=== PATIENT | female | born 1970 | race Caucasian/White ===

== ENCOUNTER → 2018-11-13 | Day surgery (SDC) | payer OTHER ==
[~2018-11-13] MED LIST: ABILIFY PO; ABILIFY5 MG PO; ACETAMINOPHEN 1000 MG/100 ML 100 ML IV ONE; AMBIEN5 MG PO; BUPRENORPHINE; CARAFATE1 G1 PO; CRUTCH1 EACH; DEXAMETHASONE SOD PHOS INJ 4 MG/ML VIAL ONE; DOXEPIN HCL25 MG PO; EPINEPHRINE HCL 1:1000 1ML 1 MG/ML AMP ONE; EXCEDRIN EXTRA1 EAC1 PO; FAMOTIDINE 20 MG/2 ML VIAL IV ONE; FENTANYL CITRATE/PF 100MCG/2 ML INJ ONE; GABAPENTIN300 MG PO; HYDROCODONE-AP1 EAC1 PO; HYDROMORPHONE 2MG/ML 2 MG/ML ML ONE; IMITREX100 MG PO; KLONOPIN0.5 MG PO; LIDOCAINE 1% W/EPINEPHRINE 20 ML VIAL ONE; LIDOCAINE HCL (LTA) 4 ML SOLN ONE; LIDOCAINE HCL 2% LOCAL INJ 5 ML SDV VIAL INJ ONE; METOCLOPRAMIDE HCL 10 MG/2ML VIAL ONE; MIDAZOLAM HCL 2 MG/2 ML VIAL ONE; MORPHINE SULFAT60 M1; MORPHINE SULFATE INJ 4 MG/ML INJ 1ML ONE; PREVACID30 MG PO; PRISTIQ ER50 MG PO; PROMETHAZINE HCL (IM) 25 MG/ML VIAL ONE; PROPOFOL IV EMULSION 10 MG/ML 20 ML VIAL ONE; PROPRANOLOL HCL40 MG PO; PROTONIX20 MG PO; REGLAN10 MG PO; ROCURONIUM BROMIDE 10 MG/ML 5ML VIAL ONE; SCOPOLAMINE 1.5 MG PATCH ONE; SEVOFLURANE INHAL SOLN 250 ML PEN BTL ONE; SUGAMMADEX SODIUM 200 MG/2 ML VIAL IV ONE; TOPAMAX25 MG PO; ULTRAM50 MG PO; VENOFER100 MG/5 M IV; Z.0.AMBIEN10 MG PO; Z.0.CELEXA20 MG PO; Z.0.CLONAZEPAM1 MG PO; Z.0.LAMICTAL200 MG PO; Z.0.PROTONIX40 MG PO; Z.0.ULTRAM50 MG PO; ZOFRAN ODT4 MG; walker
--- NOTE | 2018-11-13 05:10 | Pre Op History & Physical ---
DATE OF SURGERY: November 13, 2018. CHIEF COMPLAINT: Chronic sinusitis, nasal obstruction. HISTORY OF PRESENT ILLNESS: This 48-year-old female has history of migraine. She has been followed by Dr. Wright and also her neurologist, Dr. Loyd, with breakthrough of the headaches, and the patient required going to the ER about 2-3 times a week. The patient has postnasal drip. No epistaxis. She has decreased sense of smell. She complains of frontal and maxillary pain. She does have decreased airway on both sides recently. The patient had endoscopic sinus surgery about 16 years ago. According the patient, improved her headaches after the sinus procedure. Her recent condition has been treated with more than 8 weeks of antibiotics, topical nasal steroids, decongestant including Bactrim by myself with no improvement of the condition. A repeat CT scan of paranasal sinuses done, showed that the patient has chronic sinusitis, especially maxillary sinus involvement, and deviated nasal septum to the left side. REVIEW OF SYSTEMS: System review showed no recent cardiovascular, respiratory, or GI problem. PAST MEDICAL HISTORY: The patient has a history of hypertension, on medication. She had previous history of CVA. The patient has history of fracture of foot, on pain management. ALLERGIES: SHE IS ALLERGIC TO AUGMENTIN, ADVAIR, ZOFRAN, AND TAPE. MEDICATIONS: She is on Pristiq, Lamictal, Klonopin, doxepin, Abilify, hydrocodone, and propranolol. SOCIAL HISTORY: She is a nonsmoker, nondrinker. FAMILY HISTORY: Noncontributory. PAST SURGICAL HISTORY: The patient has previous cholecystectomy, parathyroidectomy, appendectomy, , and stomach sleeve and also endoscopic sinus surgery. PHYSICAL EXAMINATION: VITAL SIGNS: Within normal limits. HEENT: Ear exam showed normal tympanic membranes bilaterally. Nasal exam showed hypertrophy of the inferior turbinates. Oropharynx and oral cavity show 1+ tonsils bilaterally with no exudate or debris. NECK: Showed no lymph node or thyroid palpable. CHEST: Showed good air entry bilaterally. CARDIOVASCULAR: Showed S1 and S2. No murmur noted. DAY CARE ATTENDANT: Showed cranial nerves II through XII were within normal limits. ASSESSMENT AND PLAN: Mrs. Wasserman has chronic sinusitis and nasal obstruction, which has been resistant to conservative therapy. The suggested treatment is endoscopic sinus surgery, septoplasty, resection of inferior turbinate, and other necessary procedure. The complication of procedure includes, but not limited to bleeding, infection, CSF leak, blindness, double vision, meningitis, septal perforation, septal hematoma, persistent nasal obstruction, persistent nasal crusting, nasal deformity, recurrence of the sinus problem, and persistent recurrence of the headaches. I have expressed to the patient that sinus problems do cause headaches and not all headaches are sinus related. Having the sinus procedure, it is not a guarantee that she will have no more headaches. The patient understood the limitation and has elected to undergo the surgical procedure. MD JEANNIE Farnsworth/MONALISA /[id number]
--- OUTSIDE RECORDS SUMMARY | 2018-11-13 05:38 | XMS REPORT | Clinical Summary ---
Author [facility] Address Unknown Phone Unavailable Care Team Providers Care Logistics Project Manager Name Role Phone Andrea Wright MD PCP Allergies Comments Active Allergy Reactions Severity Noted Date Problems with bandaids,steri-strips,tape Adhesive Rash High 01/15/2010 And all tapes: RASH Adhesive Tape-Silicones Other (See Low 11/05/2014 Comments) Other reaction(s): Muscle Aches/Weakness spasms Augmentin: Other reaction(s): Respiratory distress Approx 1984 Amoxicillin-Pot Other (See Medium 08/27/2013 Clavulanate Comments) Other reaction(s): Respiratory distress ADVAIR DISKUS. :Approx 2006 Fluticasone Shortness Of High 08/19/2013 Propion-Salmeterol Breath Hives and Vomiting Ondansetron Hcl Hives Low 07/28/2015 Ondansetron Hcl (Pf) Nausea And High 08/19/2013 Vomiting Medications End Date Status Medication Sig Dispensed Refills Start Date Active lamoTRIgine (LaMICtal) Take 200 mg 0 100 MG tablet by mouth nightly. Active desvenlafaxine (PRISTIQ) Take 200 mg 0 100 MG 24 hr tablet by mouth nightly. Active HYDROcodone-acetaminophen Take 1 tablet 0 (NORCO) 10-325 mg per by mouth tablet every 6 (six) hours as needed for moderate pain. Active clonAZEPAM (KlonoPIN) 1 Take 1 mg by 0 MG tablet mouth 2 (two) times a day. Active omeprazole (PriLOSEC) 20 Take 20 mg by 0 MG capsule mouth 2 (two) times a day. Active doxepin (SINEquan) 10 MG Take 20 mg by 0 capsule mouth nightly. Active ARIPiprazole (ABILIFY) 10 Take 10 mg by 0 MG tablet mouth nightly. Active atorvastatin (LIPITOR) 40 Take 40 mg by 0 MG tablet mouth nightly. Active aspirin (ECOTRIN) 81 MG Take 81 mg by 0 enteric coated tablet mouth daily. Active morPHINE (MS CONTIN) 60 Take 60 mg by 0 MG 12 hr tablet mouth every 8 (eight) hours. Active gabapentin (NEURONTIN) Take 300 mg 0 300 mg capsule by mouth 3 (three) times a day. Active propranolol (INDERAL) 10 Take 10 mg by 0 MG tablet mouth 2 (two) times a day. Active erenumab-aooe (AIMOVIG Inject 70 mg 0 AUTOINJECTOR) 70 mg/mL under the auto-injector skin every 28 days. Took on 08/26/18 11/24/2018 Active butalbital-acetaminophen- Take 1 tablet 30 tablet 0 caff (ESGIC) 50-325-40 mg by mouth 9 per tablet every 6 (six) hours as needed for headaches for up to 30 days. 08/27/2018 Discontinued pantoprazole (PROTONIX) Take 40 mg by 0 40 MG EC tablet mouth 2 (two) times a day before meals. 08/27/2018 Discontinued clonAZEPAM (KlonoPIN) 0.5 Take 1 mg by 0 MG tablet mouth 7 nightly. 04/27/2018 Discontinued ARIPiprazole (ABILIFY) 5 Take 10 mg by 0 MG tablet mouth daily. 04/25/2018 Discontinued butorphanol (STADOL) 10 1 spray into 0 mg/mL nasal spray each nostril every 4 (four) hours as needed for moderate pain. 08/27/2018 Discontinued traZODone (DESYREL) 100 Take 200 mg 0 MG tablet by mouth nightly. 04/25/2018 Discontinued calcium carbonate (TUMS) Chew 2 0 200 mg calcium (500 mg) tablets 3 chewable tablet (three) times a day. 11/16/2017 atorvastatin (LIPITOR) 80 Take 1 tablet 30 tablet 0 MG tablet (80 mg total) 8 by mouth nightly for 30 days. 11/29/2017 promethazine (PHENERGAN) Take 1 tablet 30 tablet 0 12.5 MG tablet (12.5 mg 8 total) by mouth every 6 (six) hours as needed for nausea or vomiting for up to 30 days. 11/29/2017 metoprolol tartrate Take 0.5 30 tablet 0 (LOPRESSOR) 25 mg tablet tablets (12.5 8 mg total) by mouth 2 (two) times a day for 30 days. 11/30/2017 aspirin (ECOTRIN) 81 MG Take 1 tablet 30 tablet 0 enteric coated tablet (81 mg total) 8 by mouth daily for 30 days. 11/29/2017 nitroglycerin (NITROSTAT) Place 1 30 tablet 0 0.4 MG SL tablet tablet (0.4 8 mg total) under the tongue every 5 (five) minutes as needed for chest pain for up to 30 days. 04/25/2018 Discontinued cholecalciferol, vitamin TAKE 1 TABLET 3 D3, (VITAMIN D3) 2,000 (2,000 UNITS 8 unit tablet TOTAL) BY MOUTH DAILY. 04/29/2018 Discontinued morPHINE (MS CONTIN) 60 TAKE 1 TABLET 0 MG 12 hr tablet BY MOUTH 8 EVERY 8 HOURS DIRECTED 04/25/2018 Discontinued propranolol (INDERAL) 40 Take 40 mg by 0 MG tablet mouth 3 8 (three) times a day. 01/18/2018 Discontinued sucralfate (CARAFATE) 1 TAKE 1 TABLET 2 gram tablet BY MOUTH 4 8 TIMES A DAY BEFORE MEALS AND NIGHTLY 11/13/2017 Discontinued simvastatin (ZOCOR) 20 MG 0 tablet 8 11/18/2017 acetaminophen-codeine Take 1-2 20 tablet 0 (TYLENOL WITH CODEINE #3) tablets by 8 300-30 mg per tablet mouth every 4 (four) hours as needed for moderate pain for up to 5 days. 04/25/2018 Discontinued aspirin (ECOTRIN) 81 MG TAKE ONE (1) 2 enteric coated tablet TABLET(S) BY 8 MOUTH ONCE A DAY. 04/25/2018 Discontinued atorvastatin (LIPITOR) 80 TAKE ONE (1) 2 MG tablet TABLET(S) BY 8 MOUTH AT BEDTIME. 04/25/2018 Discontinued metoclopramide (REGLAN) TAKE ONE (1) 0 10 MG tablet TABLET(S) BY 8 MOUTH TWICE A DAY. 01/19/2018 Discontinued metoprolol tartrate TAKE ONE-HALF 2 (LOPRESSOR) 25 mg tablet (1/2) 8 TABLET(S) BY MOUTH TWICE A DAY HOLD IF BLOOD PRESSURE IS LESS THAN 110 OR HEART RATE IS LESS THAN 60. 04/25/2018 Discontinued promethazine (PHENERGAN) TAKE 1 TABLET 0 25 MG tablet BY MOUTH 8 EVERY 4 TO 6 HOURS NEEDED 04/25/2018 Discontinued meloxicam (MOBIC) 7.5 mg 0 tablet 8 08/27/2018 Discontinued erenumab-aooe (AIMOVIG Inject 70 mg 2 mL 12 AUTOINJECTOR) 70 mg/mL under the 8 auto-injector skin every 28 days. 04/25/2018 Discontinued SUMAtriptan-naproxen 1 po at onset 10 tablet 2 (TREXIMET) 85-500 mg per of headache. 8 tablet May repeat in 2 hours. Max 2/24 hours. 04/25/2018 Discontinued butorphanol (STADOL) 10 1 spray into 2.5 mL 2 mg/mL nasal spray each nostril 8 every 4 (four) hours as needed for moderate pain for up to 30 days. 04/27/2018 Discontinued promethazine (PHENERGAN) Take 1 tablet 10 tablet 2 12.5 MG tablet (12.5 mg 8 total) by mouth every 8 (eight) hours as needed for nausea or vomiting for up to 30 days. 04/29/2018 Discontinued butorphanol (STADOL) 10 1 spray in 1 0.8 mL 0 mg/mL nasal spray nostril 1-2 8 times/week 04/29/2018 Discontinued ARIPiprazole (ABILIFY) 10 Take 10 mg by 0 MG tablet mouth nightly. 08/27/2018 Discontinued meloxicam (MOBIC) 7.5 mg Take 7.5 mg 0 tablet by mouth nightly. 05/14/2018 Discontinued propranolol (INDERAL) 40 Take 40 mg by 0 MG tablet mouth as needed. 06/13/2018 propranolol (INDERAL) 10 Take 1 tablet 60 tablet 0 MG tablet (10 mg total) 8 by mouth 2 (two) times a day for 30 days. 06/13/2018 aspirin (ECOTRIN) 81 MG Take 1 tablet 30 tablet 0 enteric coated tablet (81 mg total) 8 by mouth daily for 30 days. 08/15/2018 sucralfate (CARAFATE) 1 Take 1 tablet 120 tablet 0 gram tablet (1 g total) 9 by mouth 4 (four) times a day for 30 days. 07/18/2018 metoclopramide (REGLAN) Take 1 tablet 8 tablet 0 10 MG tablet (10 mg total) 9 by mouth every 6 (six) hours for 2 days. 08/29/2018 Discontinued clindamycin (CLEOCIN) 300 Take 300 mg 0 MG capsule by mouth 4 (four) times a day. Start taking Monday08/24/18 10/09/2018 Discontinued promethazine (PHENERGAN) Take 12.5 mg 0 12.5 MG tablet by mouth as needed for nausea or vomiting. 11/08/2018 promethazine (PHENERGAN) Take 1 tablet 30 tablet 0 12.5 MG tablet (12.5 mg 9 total) by mouth as needed for nausea or vomiting for up to 30 days. 10/17/2018 Discontinued furosemide (LASIX) 40 mg Take 1 tablet 30 tablet 0 tablet (40 mg total) 9 by mouth daily for 30 days. 10/17/2018 Discontinued potassium chloride Take 2 60 tablet 0 (KLOR-CON) 10 MEQ CR tablets (20 9 tablet mEq total) by mouth daily for 30 days. 11/09/2018 prochlorperazine Take 1 tablet 10 tablet 0 (COMPAZINE) 10 MG tablet (10 mg total) 9 by mouth 2 (two) times a day as needed for nausea or vomiting (headache) for up to 5 days. Status Hospital, Clinic, or Ordered Dose Route Frequency Start End Date Other Facility Date Administered Medication Active erenumab-aooe (AIMOVIG) 140 mg subQ once 11/25/19 140 mg/mL syringe 140 19 mgIndications: Migraine without aura and without status migrainosus, not intractable Active Problems Problem Noted Date Dizziness 10/02/2018 TIA (transient ischemic attack) 05/13/2018 Intractable hemiplegic migraine with status migrainosus 04/27/2018 Drug abuse 01/23/2018 Somatic complaints, multiple 01/19/2018 Intractable headache 01/18/2018 Atypical chest pain 11/09/2017 Absolute anemia 11/02/2017 Overview: Added automatically from request for surgery [id number] Intractable persistent migraine aura without cerebral infarction and 12/05/2016 without status migrainosus Weakness 02/15/2016 Left-sided weakness 01/31/2016 Aphasia 01/31/2016 Chest pain 01/31/2016 Hyperlipidemia 01/31/2016 Morbid obesity with BMI of 45.0-49.9, adult 01/31/2016 Iron deficiency 01/12/2016 Overview: Required iron infusion periodically Abdominal pain, epigastric 10/19/2015 Allergic rhinitis 07/28/2015 Anemia 07/28/2015 Anxiety state 07/28/2015 BMI 45.0-49.9, adult 07/28/2015 Cervical syndrome 07/28/2015 Chest pain 07/28/2015 Depression 07/28/2015 Fever 07/28/2015 Brain disorder 07/28/2015 Gastroesophageal reflux disease 07/28/2015 Foot pain, bilateral 07/28/2015 Overview: Chronic foot pain, mostly on the lateral foot; taking morphine ER 60 mg one po daily. Fire burning discomfort Headache 07/28/2015 Iron deficiency anemia 07/28/2015 Complicated migraine 07/28/2015 Overview: Taking Zomig first for migraine headache, and followed by Stadol nasal spray if needed for migraine headache. Muscle weakness 07/28/2015 Nausea 07/28/2015 Rapid palpitations 07/28/2015 Skin sensation disturbance 07/28/2015 Snoring 07/28/2015 Tachycardia 07/28/2015 Chronic pain 07/28/2015 High cholesterol Encounters Care Team Description Date Type Specialty 11/04/2018 Travel Arsen Crocker MD Nonintractable headache, unspecified chronicity pattern, unspecified headache type (Primary Dx); Malingering 11/03/2018 Emergency Emergency Medicine - 11/04/2018 Michael Bhandari NP-C 10/31/2018 Telephone Neurology Paddy Martin MD Migraine without aura and without status migrainosus, not intractable (Primary Dx) 10/30/2018 Emergency Emergency Medicine - 10/31/2018 10/30/2018 Travel Renee Milian MD Migraine without aura and without status migrainosus, not intractable (Primary Dx) 10/25/2018 Office Visit Neurology Paddy Martin MD Migraine without aura and without status migrainosus, not intractable (Primary Dx) 10/23/2018 Emergency Emergency Medicine Renee Milian MD 10/23/2018 Telephone Neurology Brice Orosco MD Al-Lahiq, Maha, MD Intractable hemiplegic migraine with status migrainosus (Primary Dx) 10/17/2018 Emergency General Internal Medicine - 10/18/2018 10/17/2018 Travel N/A 10/04/2018 Intake Access Andrea Wright MD Obudulu, Rosemary Ogonnaya, MD Bui, Quynh-Uyen Thi, MD Dizziness (Primary Dx) 10/02/2018 [facility] Internal Medicine - Encounter 10/09/2018 Andrea Wright MD 10/02/2018 Orders Only General Internal Medicine Anish Zepeda MD Acute chest pain (Primary Dx); Acute nonintractable headache, unspecified headache type 09/17/2018 Emergency Emergency Medicine Le Caldera MD Tang, Hsiao Chiang, MD Bui, Quynh-Uyen Thi, MD Left-sided weakness (Primary Dx) 08/27/2018 Emergency General Internal Medicine - 08/29/2018 08/27/2018 Travel Paddy Martin MD Acute gastritis without hemorrhage, unspecified gastritis type (Primary Dx) 07/16/2018 Emergency Emergency Medicine Anish Zepeda MD Migraine without status migrainosus, not intractable, unspecified migraine type (Primary Dx) 06/18/2018 Emergency Emergency Medicine 06/18/2018 Travel Brittanie Pate MA 06/08/2018 Telephone Neurology Renee Milian MD 06/04/2018 Telephone Neurology Renee Milian MD 05/24/2018 Refill Neurology Nga Kyle MD Left-sided weakness (Primary Dx) 05/12/2018 [facility] General Internal Medicine - Encounter 05/14/2018 Renee Milian MD 05/08/2018 Telephone Neurology Reji Wick MD Hemiplegic migraine without status migrainosus, not intractable (Primary Dx) 05/07/2018 Emergency Emergency Medicine - 05/08/2018 Luis Felipe Astorga MD Bavare, Arusha Amod, MD Li, Xiao Hong, MD Intractable hemiplegic migraine with status migrainosus (Primary Dx) 04/27/2018 Emergency General Internal Medicine - 04/29/2018 Renee Milian MD Obesity, Class III, BMI 40-49.9 (morbid obesity) (HCC) (Primary Dx); AALIYAH (obstructive sleep apnea); Bruxism; Intractable chronic migraine without aura and without status migrainosus 04/25/2018 Office Visit Neurology Garcia Caro MD Hemiplegic migraine without status migrainosus, not intractable (Primary Dx) 04/10/2018 Emergency Emergency Medicine Garcia Caro MD Hemiplegic migraine without status migrainosus, not intractable (Primary Dx) 03/15/2018 Emergency Emergency Medicine Kevin Dave MD Nonintractable headache, unspecified chronicity pattern, unspecified headache type (Primary Dx); Paresthesia 03/12/2018 Emergency Emergency Medicine Elmer Hudson MD 01/24/2018 Telephone Cardiovascular Abbey Casey MD Infection due to port-a-cath, initial encounter (Primary Dx) 01/23/2018 Hospital General Internal Medicine - Encounter 01/25/2018 Teri Escobar MA 01/23/2018 Telephone Cardiovascular Teri Escobar MA 01/23/2018 Telephone Cardiovascular Mason Ochoa MD Allergic rhinitis, unspecified chronicity, unspecified seasonality, unspecified trigger (Primary Dx); Somatic complaints, multiple; Intractable headache, unspecified chronicity pattern, unspecified headache type; Anxiety state; BMI 45.0-49.9, adult; Cervical syndrome; Brain disorder; Gastroesophageal reflux disease without esophagitis; Foot pain, bilateral; Intractable chronic cluster headache; Iron deficiency anemia due to chronic blood loss; Complicated migraine; Muscle weakness; Nausea; Rapid palpitations; Skin sensation disturbance; Snoring; Tachycardia; Chronic pain syndrome; Abdominal pain, epigastric; Iron deficiency; Left-sided weakness; Aphasia; Hyperlipidemia, unspecified hyperlipidemia type; Morbid obesity with BMI of 45.0-49.9, adult; Weakness; Intractable persistent migraine aura without cerebral infarction and without status migrainosus; Atypical chest pain; Chest pain, unspecified type; Depression, unspecified depression type; Fever, unspecified fever cause 01/18/2018 Hospital General Internal Medicine - Encounter 01/19/2018 Reij Wick MD Chest pain, unspecified type (Primary Dx) 01/09/2018 Emergency Emergency Medicine - 01/10/2018 Agueda Vieira DO Chest pain, unspecified type (Primary Dx); Intractable chronic migraine without aura and with status migrainosus 01/03/2018 Emergency Emergency Medicine Garcia Caro MD Chest pain, unspecified type (Primary Dx); Acute nonintractable headache, unspecified headache type 12/11/2017 Emergency Emergency Medicine Elmer Hudson MD INSERTION, CATHETER, PORT-A-CATH LEFT CHEST 11/13/2017 Surgery General Surgery Nicolas Hamm MD 11/13/2017 Anesthesia General Surgery Event Elmer Hudson MD Other iron deficiency anemia 11/13/2017 Hospital General Surgery Encounter after 11/12/2017 Immunizations Name Dates Previously Given Next Due FLUCELVAX QUAD PF (0.5mL 01/24/2018 syringe) Influenza (IM) 01/12/2016 Preservative Free Influenza Trivalent 02/03/2015, 03/05/2014 Family History Medical History Relation Name Comments Hypertension Father Stroke Father Hyperlipidemia Mother Relation Name Status Comments Father Alive Mother Alive Social History Date Tobacco Use Types Packs/Day Years Used Never Smoker Smokeless Tobacco: Never Used Alcohol Use Drinks/Week oz/Week Comments No Sex Assigned at Date Recorded Not on file Industry Job Start Date Occupation Not on file Not on file Not on file Travel End Travel History Travel Start No recent travel history available. Last Filed Vital Signs Time Taken Vital Sign Reading 11/04/2018 3:40 AM CDT Blood Pressure 142/75 11/04/2018 3:40 AM CDT Pulse 98 11/03/2018 11:07 PM CDT Temperature 36.4 C (97.5 F) 11/04/2018 3:40 AM CDT Respiratory Rate 16 11/04/2018 3:40 AM CDT Oxygen Saturation 100% - Inhaled Oxygen - Concentration 11/03/2018 11:06 PM CDT Weight 129 kg (284 lb) 11/03/2018 11:06 PM CDT Height 170.2 cm (5' 7") 11/03/2018 11:06 PM CDT Body Mass Index 44.48 Plan of Treatment Care Team Description Date Type Specialty Renee Milian MD [facility] [address] [address] [phone] 04/24/2019 Office Visit Neurology Health Maintenance Due Date Last Done Comments INFLUENZA VACCINE 12/20/2018 01/24/2018, 01/12/2016, 02/03/2015, Additional history exists Implants Device Identifier Shelf Expiration Date Model / Serial / Lot Implanted Type Area Manufactur er 09/19/2019 [id number] / / [id number] Device Vasclr Clsr Baln Cath 10ml Cardiovasc N/A: N/A CARDINAL Lkng Syr 6fr 7fr [facility]ynxgrip - [facility] HistoryFile [id number] Implants Implanted: 10/17/2017 (Quantity not on file) 03/21/2020 [id number] / / [id number] Port Injctbl Smart Port Ct W/ Dtchd Implantabl Left: N/A ANGIODYNAM Plyurthn Cath 8fr - [id number] e [employer] Implanted: Qty: 1 on 11/13/2017 by Ports or Elmer Hudson MD Accessorie s Procedures Comments Procedure Name Priority Date/Time Associated Diagnosis MRI BRAIN WO CONTRAST STAT 11/04/2018 1:10 AM CDT SMEAR REVIEW STAT 11/04/2018 12:53 AM CDT ESTIMATED GFR STAT 11/04/2018 12:53 AM CDT HCG QUALITATIVE, SERUM STAT 11/04/2018 SCREEN 12:53 AM CDT PARTIAL THROMBOPLASTIN STAT 11/04/2018 TIME (PTT) 12:53 AM CDT PROTHROMBIN TIME WITH INR STAT 11/04/2018 12:53 AM CDT TROPONIN STAT 11/04/2018 12:53 AM CDT COMPREHENSIVE METABOLIC STAT 11/04/2018 PANEL 12:53 AM CDT HC COMPLETE BLD COUNT STAT 11/04/2018 W/AUTO DIFF 12:[address] HEAD WO CONTRAST STAT 11/03/2018 11:29 PM CDT TROPONIN Timed 10/30/2018 10:36 PM CDT XR CHEST 2 VW STAT 10/30/2018 9:04 PM CDT ECG ED PRELIMINARY Routine 10/30/2018 INTERPRETATION 8:04 PM CDT ECG 12-LEAD STAT 10/30/2018 7:42 PM CDT ESTIMATED GFR STAT 10/30/2018 7:42 PM CDT B NATRIURETIC PEPTIDE STAT 10/30/2018 7:42 PM CDT TROPONIN STAT 10/30/2018 7:42 PM CDT COMPREHENSIVE METABOLIC STAT 10/30/2018 PANEL 7:42 PM CDT HC COMPLETE BLD COUNT STAT 10/30/2018 W/AUTO DIFF 7:42 PM CDT SMEAR REVIEW Routine 10/18/2018 7:10 AM CDT ESTIMATED GFR Routine 10/18/2018 7:10 AM CDT COMPREHENSIVE METABOLIC Routine 10/18/2018 PANEL 7:10 AM CDT HC COMPLETE BLD COUNT Routine 10/18/2018 W/AUTO DIFF 7:10 AM CDT LIPID PANEL Routine 10/18/2018 7:10 AM CDT GRAM STAIN STAT 10/17/2018 3:45 PM CDT URINE CULTURE STAT 10/17/2018 3:45 PM CDT URINALYSIS SCREEN AND STAT 10/17/2018 MICROSCOPY, WITH REFLEX 3:[address] CULTURE [address] HEAD WO CONTRAST STAT 10/17/2018 10:28 AM CDT ESTIMATED GFR STAT 10/17/2018 10:21 AM CDT PHOSPHORUS LEVEL STAT 10/17/2018 10:21 AM CDT MAGNESIUM LEVEL STAT 10/17/2018 10:21 AM CDT ALCOHOL LEVEL, BLOOD STAT 10/17/2018 10:21 AM CDT COMPREHENSIVE METABOLIC STAT 10/17/2018 PANEL 10:21 AM CDT HC COMPLETE BLD COUNT STAT 10/17/2018 W/AUTO DIFF 10:21 AM CDT ECG 12-LEAD Routine 10/17/2018 9:56 AM CDT ECG ED PRELIMINARY Routine 10/17/2018 INTERPRETATION 9:49 AM CDT ESTIMATED GFR Routine 10/09/2018 5:50 AM CDT HEPATIC FUNCTION PANEL Routine 10/09/2018 5:50 AM CDT HC COMPLETE BLD COUNT Routine 10/09/2018 W/AUTO DIFF 5:50 AM CDT BASIC METABOLIC PANEL Routine 10/09/2018 5:50 AM CDT ESTIMATED GFR Routine 10/08/2018 5:54 AM CDT PHOSPHORUS LEVEL Routine 10/08/2018 5:54 AM CDT MAGNESIUM LEVEL Routine 10/08/2018 5:54 AM CDT BASIC METABOLIC PANEL Routine 10/08/2018 5:54 AM CDT ESTIMATED GFR Routine 10/07/2018 6:48 AM CDT MAGNESIUM LEVEL Routine 10/07/2018 6:48 AM CDT B NATRIURETIC PEPTIDE Routine 10/07/2018 6:48 AM CDT BASIC METABOLIC PANEL Routine 10/07/2018 6:48 AM CDT ESTIMATED GFR Routine 10/06/2018 6:34 AM CDT MAGNESIUM LEVEL Routine 10/06/2018 6:34 AM CDT BASIC METABOLIC PANEL Routine 10/06/2018 6:34 AM CDT ESTIMATED GFR STAT 10/05/2018 9:21 PM CDT PHOSPHORUS LEVEL STAT 10/05/2018 9:21 PM CDT MAGNESIUM LEVEL STAT 10/05/2018 9:21 PM CDT HC COMPLETE BLD COUNT STAT 10/05/2018 W/AUTO DIFF 9:21 PM CDT BASIC METABOLIC PANEL STAT 10/05/2018 9:21 PM CDT MRI BRAIN WO CONTRAST STAT 10/05/2018 11:12 AM CDT TROPONIN Timed 10/04/2018 3:10 PM CDT ECHOCARDIOGRAM 2D Routine 10/04/2018 COMPLETE W MMODE SPECTRAL 12:21 PM CDT COLOR DOPPLER (77399) TROPONIN STAT 10/04/2018 9:10 AM CDT B NATRIURETIC PEPTIDE STAT 10/04/2018 9:10 AM CDT D-DIMER STAT 10/04/2018 9:10 AM CDT MRI BRAIN WO CONTRAST STAT 10/03/2018 4:40 AM CDT BLOOD CULTURE, AEROBIC & Routine 10/02/2018 ANAEROBIC 10:29 PM CDT ESTIMATED GFR Routine 10/02/2018 10:25 PM CDT TROPONIN Routine 10/02/2018 10:25 PM CDT CREATINE KINASE, TOTAL Routine 10/02/2018 (CPK) 10:25 PM CDT THYROID STIMULATING Routine 10/02/2018 HORMONE 10:25 PM CDT LACTIC ACID LEVEL Routine 10/02/2018 10:25 PM CDT COMPREHENSIVE METABOLIC Routine 10/02/2018 PANEL 10:25 PM CDT HC COMPLETE BLD COUNT Routine 10/02/2018 W/AUTO DIFF 10:25 PM CDT BLOOD CULTURE, AEROBIC & Routine 10/02/2018 ANAEROBIC 10:25 PM CDT ECG 12-LEAD Routine 10/02/2018 9:[address] HEAD WO CONTRAST Routine 10/02/2018 9:34 PM CDT ESTIMATED GFR Routine 09/17/2018 1:11 AM CDT B NATRIURETIC PEPTIDE Routine 09/17/2018 1:11 AM CDT LIPASE LEVEL Routine 09/17/2018 1:11 AM CDT TROPONIN Routine 09/17/2018 1:11 AM CDT COMPREHENSIVE METABOLIC Routine 09/17/2018 PANEL 1:11 AM CDT PROTHROMBIN TIME WITH INR Routine 09/17/2018 1:11 AM CDT HC COMPLETE BLD COUNT Routine 09/17/2018 W/AUTO DIFF 1:11 AM CDT XR CHEST 1 VW PORTABLE STAT 09/17/2018 1:03 AM CDT ECG ED PRELIMINARY Routine 09/17/2018 INTERPRETATION 12:27 AM CDT ECG 12-LEAD STAT 09/17/2018 12:22 AM CDT ESTIMATED GFR STAT 08/29/2018 8:35 AM CDT MAGNESIUM LEVEL STAT 08/29/2018 8:35 AM CDT HEPATIC FUNCTION PANEL STAT 08/29/2018 8:35 AM CDT HC COMPLETE BLD COUNT STAT 08/29/2018 W/AUTO DIFF 8:35 AM CDT BASIC METABOLIC PANEL STAT 08/29/2018 8:35 AM CDT POC GLUCOSE Routine 08/29/2018 6:09 AM CDT POC GLUCOSE Routine 08/28/2018 8:16 PM CDT POC GLUCOSE Routine 08/28/2018 5:09 PM CDT TROPONIN Timed 08/27/2018 11:53 PM CDT POC GLUCOSE Routine 08/27/2018 8:01 PM CDT TROPONIN Timed 08/27/2018 5:21 PM CDT MRI BRAIN WO CONTRAST STAT 08/27/2018 3:21 PM CDT POC GLUCOSE Routine 08/27/2018 2:[address] ANGIOGRAM NECK W WO STAT 08/27/2018 CONTRAST 2:[address] ANGIOGRAM HEAD W WO STAT 08/27/2018 CONTRAST 2:17 PM CDT ECG 12-LEAD STAT 08/27/2018 1:39 PM CDT ECG ED PRELIMINARY Routine 08/27/2018 INTERPRETATION 1:[address] STROKE BRAIN WO STAT 08/27/2018 CONTRAST 1:12 PM CDT ESTIMATED GFR STAT 08/27/2018 1:09 PM CDT TROPONIN STAT 08/27/2018 1:09 PM CDT COMPREHENSIVE METABOLIC STAT 08/27/2018 PANEL 1:09 PM CDT PROTHROMBIN TIME WITH INR STAT 08/27/2018 1:09 PM CDT PARTIAL THROMBOPLASTIN STAT 08/27/2018 TIME (PTT) 1:09 PM CDT HC COMPLETE BLD COUNT STAT 08/27/2018 W/AUTO DIFF 1:[address] ABDOMEN PELVIS W STAT 07/16/2018 CONTRAST 4:50 AM BIOMETRIC SCREENER URINE CULTURE STAT 07/16/2018 3:58 AM BIOMETRIC SCREENER GRAM STAIN STAT 07/16/2018 3:58 AM BIOMETRIC SCREENER HCG QUALITATIVE, URINE STAT 07/16/2018 SCREEN 2:30 AM BIOMETRIC SCREENER URINALYSIS SCREEN AND STAT 07/16/2018 MICROSCOPY, WITH REFLEX 2:30 AM BIOMETRIC SCREENER TO CULTURE ESTIMATED GFR STAT 07/16/2018 2:09 AM BIOMETRIC SCREENER LIPASE LEVEL STAT 07/16/2018 2:09 AM BIOMETRIC SCREENER COMPREHENSIVE METABOLIC STAT 07/16/2018 PANEL 2:09 AM BIOMETRIC SCREENER HC COMPLETE BLD COUNT STAT 07/16/2018 W/AUTO DIFF 2:09 AM BIOMETRIC SCREENER HCG QUALITATIVE, SERUM STAT 06/18/2018 SCREEN 2:07 PM BIOMETRIC SCREENER ESTIMATED GFR STAT 06/18/2018 2:07 PM BIOMETRIC SCREENER B NATRIURETIC PEPTIDE STAT 06/18/2018 2:07 PM BIOMETRIC SCREENER TROPONIN STAT 06/18/2018 2:07 PM BIOMETRIC SCREENER COMPREHENSIVE METABOLIC STAT 06/18/2018 PANEL 2:07 PM BIOMETRIC SCREENER HC COMPLETE BLD COUNT STAT 06/18/2018 W/AUTO DIFF 2:[address] HEAD WO CONTRAST STAT 06/18/2018 12:50 PM BIOMETRIC SCREENER XR CHEST 1 VW PORTABLE STAT 06/18/2018 12:24 PM BIOMETRIC SCREENER ECG 12-LEAD STAT 06/18/2018 11:[address] HEAD WO CONTRAST Routine 05/14/2018 4:40 AM BIOMETRIC SCREENER MRI BRAIN W WO CONTRAST Routine 05/13/2018 7:41 PM BIOMETRIC SCREENER ESTIMATED GFR Routine 05/13/2018 12:40 AM BIOMETRIC SCREENER BILIRUBIN DIRECT Routine 05/13/2018 12:40 AM BIOMETRIC SCREENER HCG QUALITATIVE, SERUM STAT 05/13/2018 SCREEN 12:40 AM BIOMETRIC SCREENER T4, FREE Routine 05/13/2018 12:40 AM BIOMETRIC SCREENER THYROID STIMULATING Routine 05/13/2018 HORMONE 12:40 AM BIOMETRIC SCREENER PREALBUMIN LEVEL Routine 05/13/2018 12:40 AM BIOMETRIC SCREENER PHOSPHORUS LEVEL Routine 05/13/2018 12:40 AM BIOMETRIC SCREENER MAGNESIUM LEVEL Routine 05/13/2018 12:40 AM BIOMETRIC SCREENER HEMOGLOBIN A1C Routine 05/13/2018 12:40 AM BIOMETRIC SCREENER COMPREHENSIVE METABOLIC Routine 05/13/2018 PANEL 12:40 AM BIOMETRIC SCREENER CREATINE KINASE, TOTAL Routine 05/13/2018 (CPK) 12:40 AM BIOMETRIC SCREENER B NATRIURETIC PEPTIDE Routine 05/13/2018 12:40 AM BIOMETRIC SCREENER AMYLASE LEVEL Routine 05/13/2018 12:40 AM BIOMETRIC SCREENER PARTIAL THROMBOPLASTIN Routine 05/13/2018 TIME (PTT) 12:40 AM BIOMETRIC SCREENER PROTHROMBIN TIME WITH INR Routine 05/13/2018 12:40 AM BIOMETRIC SCREENER HC COMPLETE BLD COUNT Routine 05/13/2018 W/AUTO DIFF 12:40 AM BIOMETRIC SCREENER ECG 12-LEAD STAT 05/08/2018 1:17 AM BIOMETRIC SCREENER ESTIMATED GFR STAT 05/08/2018 12:20 AM BIOMETRIC SCREENER PARTIAL THROMBOPLASTIN STAT 05/08/2018 TIME (PTT) 12:20 AM BIOMETRIC SCREENER PROTHROMBIN TIME WITH INR STAT 05/08/2018 12:20 AM BIOMETRIC SCREENER HC COMPLETE BLD COUNT STAT 05/08/2018 W/AUTO DIFF 12:20 AM BIOMETRIC SCREENER BASIC METABOLIC PANEL STAT 05/08/2018 12:[address] HEAD WO CONTRAST STAT 05/07/2018 11:33 PM BIOMETRIC SCREENER ECG ED PRELIMINARY Routine 05/07/2018 INTERPRETATION 10:32 PM BIOMETRIC SCREENER ESTIMATED GFR Routine 04/28/2018 6:00 AM BIOMETRIC SCREENER HC COMPLETE BLD COUNT Routine 04/28/2018 W/AUTO DIFF 6:00 AM BIOMETRIC SCREENER HEMOGLOBIN A1C Routine 04/28/2018 6:00 AM BIOMETRIC SCREENER LIPID PANEL Routine 04/28/2018 6:00 AM BIOMETRIC SCREENER BASIC METABOLIC PANEL Routine 04/28/2018 6:00 AM BIOMETRIC SCREENER MRI STROKE BRAIN WO STAT 04/27/2018 CONTRAST 9:52 AM BIOMETRIC SCREENER ECG ED PRELIMINARY Routine 04/27/2018 INTERPRETATION 9:05 AM BIOMETRIC SCREENER ECG 12-LEAD STAT 04/27/2018 8:48 AM BIOMETRIC SCREENER ESTIMATED GFR STAT 04/27/2018 8:42 AM BIOMETRIC SCREENER COMPREHENSIVE METABOLIC STAT 04/27/2018 PANEL 8:42 AM BIOMETRIC SCREENER PROTHROMBIN TIME WITH INR STAT 04/27/2018 8:42 AM BIOMETRIC SCREENER PARTIAL THROMBOPLASTIN STAT 04/27/2018 TIME (PTT) 8:42 AM BIOMETRIC SCREENER HC COMPLETE BLD COUNT STAT 04/27/2018 W/AUTO DIFF 8:[address] STROKE BRAIN WO STAT 04/27/2018 CONTRAST 8:38 AM BIOMETRIC SCREENER MRI BRAIN WO CONTRAST STAT 04/10/2018 1:16 AM BIOMETRIC SCREENER MRI BRAIN WO CONTRAST STAT 03/15/2018 2:17 AM CDT ECG 12-LEAD STAT 03/12/2018 8:01 PM CDT PROTHROMBIN TIME WITH INR STAT 03/12/2018 7:55 PM CDT PARTIAL THROMBOPLASTIN STAT 03/12/2018 TIME (PTT) 7:55 PM CDT ESTIMATED GFR STAT 03/12/2018 7:23 PM CDT TROPONIN STAT 03/12/2018 7:23 PM CDT COMPREHENSIVE METABOLIC STAT 03/12/2018 PANEL 7:23 PM CDT HC COMPLETE BLD COUNT STAT 03/12/2018 W/AUTO DIFF 7:[address] STROKE BRAIN WO STAT 03/12/2018 CONTRAST 7:17 PM CDT ECG ED PRELIMINARY Routine 03/12/2018 INTERPRETATION 7:12 PM CDT ECG 12-LEAD STAT 01/25/2018 1:09 AM CDT ZZESTIMATED GFR Timed 01/24/2018 1:10 PM CDT MAGNESIUM LEVEL Timed 01/24/2018 1:10 PM CDT IONIZED CALCIUM Timed 01/24/2018 1:10 PM CDT BASIC METABOLIC PANEL Timed 01/24/2018 1:10 PM CDT BLOOD CULTURE, AEROBIC & Routine 01/24/2018 ANAEROBIC 4:36 AM CDT ALBUMIN LEVEL Routine 01/24/2018 3:08 AM CDT IONIZED CALCIUM Routine 01/24/2018 3:[address] HEAD WO CONTRAST Routine 01/24/2018 2:42 AM CDT XR CHEST 1 VW PORTABLE STAT 01/24/2018 1:54 AM CDT POC GLUCOSE Routine 01/24/2018 1:47 AM CDT TROPONIN STAT 01/24/2018 1:47 AM CDT D-DIMER STAT 01/24/2018 1:47 AM CDT ZZESTIMATED GFR STAT 01/24/2018 1:47 AM CDT MAGNESIUM LEVEL STAT 01/24/2018 1:47 AM CDT BASIC METABOLIC PANEL STAT 01/24/2018 1:47 AM CDT HC COMPLETE BLD COUNT STAT 01/24/2018 W/AUTO DIFF 1:47 AM CDT MYOGLOBIN STAT 01/24/2018 1:47 AM CDT ECG 12-LEAD STAT 01/24/2018 1:44 AM CDT BLOOD CULTURE, AEROBIC & Routine 01/24/2018 ANAEROBIC 1:15 AM CDT TROPONIN STAT 01/18/2018 12:46 PM CDT ECG 12-LEAD STAT 01/18/2018 11:16 AM CDT COMPREHENSIVE METABOLIC STAT 01/18/2018 PANEL 3:35 AM CDT ZZESTIMATED GFR STAT 01/18/2018 3:35 AM CDT MAGNESIUM LEVEL STAT 01/18/2018 3:35 AM CDT BASIC METABOLIC PANEL STAT 01/18/2018 3:35 AM CDT TROPONIN STAT 01/18/2018 3:35 AM CDT MYOGLOBIN STAT 01/18/2018 3:35 AM CDT HC COMPLETE BLD COUNT STAT 01/18/2018 W/AUTO DIFF 3:35 AM CDT XR CHEST 1 VW PORTABLE STAT 01/18/2018 2:26 AM CDT ECG 12-LEAD STAT 01/18/2018 2:15 AM CDT TROPONIN Timed 01/10/2018 2:07 AM CDT ECG 12-LEAD STAT 01/10/2018 12:41 AM CDT ZZESTIMATED GFR STAT 01/10/2018 12:00 AM CDT LIPASE LEVEL STAT 01/10/2018 12:00 AM CDT HEPATIC FUNCTION PANEL STAT 01/10/2018 12:00 AM CDT HCG QUALITATIVE, SERUM STAT 01/10/2018 SCREEN 12:00 AM CDT B NATRIURETIC PEPTIDE STAT 01/10/2018 12:00 AM CDT TROPONIN STAT 01/10/2018 12:00 AM CDT HC COMPLETE BLD COUNT STAT 01/10/2018 W/AUTO DIFF 12:00 AM CDT BASIC METABOLIC PANEL STAT 01/10/2018 12:00 AM CDT ECG ED PRELIMINARY Routine 01/09/2018 INTERPRETATION 11:39 PM CDT XR CHEST 1 VW PORTABLE STAT 01/09/2018 11:33 PM CDT ECG 12-LEAD STAT 01/09/2018 11:23 PM CDT ECG ED PRELIMINARY Routine 01/03/2018 INTERPRETATION 10:27 AM CDT ZZESTIMATED GFR STAT 01/03/2018 10:25 AM CDT TROPONIN STAT 01/03/2018 10:25 AM CDT COMPREHENSIVE METABOLIC STAT 01/03/2018 PANEL 10:25 AM CDT HC COMPLETE BLD COUNT STAT 01/03/2018 W/AUTO DIFF 10:25 AM CDT ECG 12-LEAD STAT 01/03/2018 10:02 AM CDT TROPONIN Timed 12/11/2017 8:35 PM CDT ZZESTIMATED GFR STAT 12/11/2017 4:30 PM CDT B NATRIURETIC PEPTIDE STAT 12/11/2017 4:30 PM CDT TROPONIN STAT 12/11/2017 4:30 PM CDT COMPREHENSIVE METABOLIC STAT 12/11/2017 PANEL 4:30 PM CDT HC COMPLETE BLD COUNT STAT 12/11/2017 W/AUTO DIFF 4:30 PM CDT ECG ED PRELIMINARY Routine 12/11/2017 INTERPRETATION 3:19 PM CDT ECG 12-LEAD STAT 12/11/2017 1:25 PM CDT TROPONIN STAT 11/13/2017 11:07 AM CDT XR CHEST 1 VW PORTABLE STAT 11/13/2017 10:17 AM CDT ECG 12-LEAD STAT 11/13/2017 9:47 AM CDT MS AN ELECTIVE Routine 11/13/2017 SUPRAGLOTTIC AIRWAY 8:26 AM CDT Procedure Note - Peri Chung, SKIMMER - 11/13/2017 8:26 AM CDT Airway Date/Time: 11/13/2017 8:14 AM Performed by: PERI CHUNG Authorized by: NICOLAS HAMM Location: OR Urgency: Elective Difficult Airway: No Resident/C RNA/AA: PERI CHUNG Preoxygena marvin with 100% O2: Yes C-spine Precaution s Maintained Throughout : Yes Final Airway Type: Supraglott ic airway Final LMA: Unique LMA Size: 4 Number of Attempts at Approach: 1 CV HYBRID OR FLUOROSCOPY Routine 11/13/2017 8:16 AM CDT after 11/12/2017 Results * MRI Brain Wo Contrast (11/04/2018 1:10 AM CDT) Only the most recent of 6 results within the time period is included. Specimen Narrative Performed At EXAM: MRI BRAIN WO CONTRAST [facility] [place] CLINICAL HISTORY: lea TECHNIQUE: Multiplanar and multisequence MRI imaging of the brain was obtained without contrast. COMPARISON:CT brain, same day FINDINGS: No diffusion restriction to suggest acute infarct. Parenchymal volume is within normal limits. No acute intracranial hemorrhage, mass, hydrocephalus, or extra-axial fluid collection identified. Although this examination is not optimized for the sella, pituitary is grossly normal in appearance. Midline structures are maintained. The major flow voids in the skull base are identified. Bilateral orbital lens replacements are noted. Minimal mucosal thickening or mucosal retention cysts seen inferiorly within the bilateral maxillary sinuses. Remaining paranasal sinuses are clear. Mastoid air cells are normally pneumatized. IMPRESSION: No acute intracranial abnormality identified. [facility]-[id number] Procedure Note Interface, Radiology Results Incoming - 11/04/2018 1:16 AM CDT EXAM: MRI BRAIN WO CONTRAST CLINICAL HISTORY: lea TECHNIQUE: Multiplanar and multisequence MRI imaging of the brain was obtained without contrast. COMPARISON: CT brain, same day FINDINGS: No diffusion restriction to suggest acute infarct. Parenchymal volume is within normal limits. No acute intracranial hemorrhage, mass, hydrocephalus, or extra-axial fluid collection identified. Although this examination is not optimized for the sella, pituitary is grossly normal in appearance. Midline structures are maintained. The major flow voids in the skull base are identified. Bilateral orbital lens replacements are noted. Minimal mucosal thickening or mucosal retention cysts seen inferiorly within the bilateral maxillary sinuses. Remaining paranasal sinuses are clear. Mastoid air cells are normally pneumatized. IMPRESSION: No acute intracranial abnormality identified. [facility]-[id number] Performing Organization Address City/State/Zipcode Phone Number [facility] [address] [place] [address] * Smear review (11/04/2018 12:53 AM CDT) Only the most recent of 2 results within the time period is included. Platelet slide Albina adequate [place] review [facility] Specimen Performing Organization Address City/State/Zipcode Phone Number [facility] [address] [place] [address] PATHOLOGY AND [facility] [address] [place] [address] * Estimated GFR (11/04/2018 12:53 AM CDT) Only the most recent of 20 results within the time period is included. [facility] Estimated GFR 60 mL/min/1.73 m2 [place] Comment: [facility] G1 >=90 Normal or high G2 60-89Mildly decreased [id number] Mildly to moderately decreased [id number] Moderately to severely decreased G4 15-29Severely decreased G5 <15Kidney failure The eGFR was calculated using the Chronic Kidney Disease Epidemiology Collaboration (CKD-EPI) equation. Interpretation is based on recommendations of the National Kidney Foundation-Kidney Disease Outcomes Quality Initiative (NKF-KDOQI) published in 2014. Specimen Plasma specimen Performing Organization Address City/[facility]/Zipcode Phone Number [facility] [address] * Troponin (11/04/2018 12:53 AM CDT) Only the most recent of 21 results within the time period is included. [facility] Troponin <0.006 0.000 - 0.040 ng/mL [place] Comment: [facility] changed methodology effective: HOSPITAL 09/25/2018 at 10:00 am The new method has a 99th percentile cutoff of 0.040 ng/mL Specimen Plasma specimen Performing Organization Address City/State/Zipcode Phone Number [facility] [address] * Partial thromboplastin time, activated (11/04/2018 12:53 AM CDT) Only the most recent of 6 results within the time period is included. [facility] PTT 29.0 23.0 - 36.0 sec [place] Comment: [facility] PTT therapeutic range for [place] unfractionated heparin is HOSPITAL 61.0-112.0 seconds which corresponds to Anti-Xa 0.3-0.7 U/ml. Note:Change in Panic Value The PTT Panic Value is changing from 110 sec. to 100 sec. due to new instrumentation and reagents. Correlation studies have been performed to validate this result. Specimen Blood Performing Organization Address City/[facility] Phone Number [facility] [address] [place] [address] PATHOLOGY AND [facility] [address] [place] [address] * Prothrombin time with INR (11/04/2018 12:53 AM CDT) Only the most recent of 7 results within the time period is included. [facility] Prothrombin 12.9 11.5 - 14.5 sec [facility] INR 1.00 [place] Comment: ORTHODOXY For patients on anticoagulant [place] therapy, reference ranges HOSPITAL below: Indication: INR Value Treatment of Venous Thrombosis, 2.0-3.0 pulmonary emboli, or prophylaxis of a venous thrombosis, or systemic emboli. High dose, high risk patients 3.0-4.5 with mechanical valves. NOTE:INR values over 3.0 are sometimes associated with gastrointestinal hemorrhage, especially values over 4.0. Specimen Blood Performing Organization Address City/[facility] Phone Number [facility] OF [address] [place] [address] PATHOLOGY AND [facility] [address] * CBC with platelet and differential (11/04/2018 12:53 AM CDT) Only the most recent of 22 results within the time period is included. [facility] WBC 10.6 4.2 - 11.0 k/uL [facility] RBC 5.50 4.04 - 5.86 m/uL [facility] HGB 14.0 11.5 - 15.3 g/dL [facility] HCT 47.8 (H) 34.0 - 45.0 % [facility] MCV 86.9 80.0 - 98.0 fL [facility] MCH 25.5 (L) 27.0 - 34.0 pg [facility] MCHC 29.3 (L) 31.5 - 36.5 g/dL [facility] RDW - SD 48.5 37.0 - 51.0 fL [facility] MPV 11.2 (H) 7.4 - 10.4 fL [facility] Platelet count 269 150 - 400 k/uL [facility] Nucleated RBC 0.00 /100 WBC [facility] Neutrophils 68.5 (H) 36.0 - 66.0 % [facility] Lymphocytes 22.9 (L) 24.0 - 44.0 % [facility] Monocytes 6.2 (H) 0.0 - 6.0 % [facility] Eosinophils 1.9 0.0 - 6.0 % [facility] Basophils 0.2 0.0 - 1.2 % [facility] Immature 0.3 0.0 - 1.0 % [place] granulocytes [facility] Specimen Blood Performing Organization Address City/[facility]/Zipcode Phone Number [facility] [address] [place] [address] PATHOLOGY AND GENOMIC MEDICINE [address] * hCG qualitative, serum screen (11/04/2018 12:53 AM CDT) Only the most recent of 4 results within the time period is included. hCG Negative [place] qualitative, Comment: [facility]TH[facility] serum The manufacturers stated [place] sensitivity of HcG test for HOSPITAL serum is >/=10 mIU/ml and urine is >/=20mIU/ml. Specimen Blood Performing Organization Address City/[facility] Phone Number [facility] [address] [place] [address] PATHOLOGY AND GENOMIC MEDICINE [address] * Comprehensive metabolic panel (11/04/2018 12:53 AM CDT) Only the most recent of 15 results within the time period is included. Sodium 144 135 - 150 mEq/L [facility] Potassium 3.3 (L) 3.5 - 5.0 mEq/L [facility] Chloride 103 98 - 112 mEq/L [facility] CO2 24 24 - 31 mmol/L [facility] Anion gap 17@ANIO (H) 7 - 15 mEq/L [facility] BUN 6 (L) 7 - 18 mg/dL [facility] Creatinine 1.10 (H) 0.50 - 0.90 mg/dL [facility] Glucose 101 (H) 65 - 100 mg/dL [facility] Calcium 9.3 8.3 - 10.2 mg/dL [facility] Protein 7.6 6.3 - 8.3 g/dL [facility] Albumin 3.7 3.5 - 5.0 g/dL [facility] A/G ratio 0.9 0.7 - 3.8 [facility] Alkaline 106 (H) 0 - 104 U/L [place] phosphatase [facility] AST 16 10 - 35 U/L [facility] ALT 16 5 - 50 U/L [facility] Total bilirubin 0.4 0.2 - 1.2 mg/dL [facility] Specimen Plasma specimen Performing Organization Address City/State/Zipcode Phone Number [facility] [address] [place] [address] PATHOLOGY AND GENOMIC MEDICINE [facility] [address] [place] [address] HOSPITAL * CT Head Wo Contrast (11/03/2018 11:29 PM CDT) Only the most recent of 7 results within the time period is included. Specimen Narrative Performed At EXAM: CT HEAD WO CONTRAST [facility] CLINICAL HISTORY: headache TECHNIQUE: Noncontrast enhanced images of the brain were obtained from the skull base to the vertex. Both soft tissue and bone reconstruction algorithms were performed. CT scans are performed using radiation dose reduction techniques (iterative reconstruction and/or automated exposure control). Technical factors are evaluated and adjusted to ensure appropriate moderation of exposure. Automated dose management technology is applied to adjust radiation exposure while achieving a diagnostic quality image. COMPARISON:10/17/2018. FINDINGS: The mclaughlin-white matter differentiation is preserved and without evidence of acute territorial infarction. There is no evidence for acute intracranial hemorrhage, mass, mass effect, hydrocephalus, or extra-axial fluid collection. Bilateral orbital lens replacements are noted.Minimal mucosal thickening within the bilateral maxillary sinuses inferiorly. Remaining paranasal sinuses are clear.Mastoid air cells are normally pneumatized.Osseous structures are intact. IMPRESSION: No CT evidence for acute intracranial abnormality. [facility]-[id number] Procedure Note Interface, Radiology Results Incoming - 11/03/2018 11:37 PM CDT EXAM: CT HEAD WO CONTRAST CLINICAL HISTORY: headache TECHNIQUE: Noncontrast enhanced images of the brain were obtained from the skull base to the vertex. Both soft tissue and bone reconstruction algorithms were performed. CT scans are performed using radiation dose reduction techniques (iterative reconstruction and/or automated exposure control). Technical factors are evaluated and adjusted to ensure appropriate moderation of exposure. Automated dose management technology is applied to adjust radiation exposure while achieving a diagnostic quality image. COMPARISON: 10/17/2018. FINDINGS: The mclaughlin-white matter differentiation is preserved and without evidence of acute territorial infarction. There is no evidence for acute intracranial hemorrhage, mass, mass effect, hydrocephalus, or extra-axial fluid collection. Bilateral orbital lens replacements are noted. Minimal mucosal thickening within the bilateral maxillary sinuses inferiorly. Remaining paranasal sinuses are clear. Mastoid air cells are normally pneumatized. Osseous structures are intact. IMPRESSION: No CT evidence for acute intracranial abnormality. [facility]-[id number] Performing Organization Address City/State/Zipcode Phone Number [facility] [address] [place] [address] * XR Chest 2 Vw (10/30/2018 9:04 PM CDT) Specimen Narrative Performed At EXAMINATION: XR CHEST 2 VW [facility] CLINICAL HISTORY: SOB COMPARISON:09/17/2018. IMPRESSION: Left port catheter terminates over the cavoatrial junction. The lungs are clear. No pleural effusion or pneumothorax. The cardiomediastinal silhouette is normal. No acute osseous abnormalities. [facility]-[id number] Procedure Note Interface, Radiology Results Incoming - 10/30/2018 9:42 PM CDT EXAMINATION: XR CHEST 2 VW CLINICAL HISTORY: SOB COMPARISON: 09/17/2018. IMPRESSION: Left port catheter terminates over the cavoatrial junction. The lungs are clear. No pleural effusion or pneumothorax. The cardiomediastinal silhouette is normal. No acute osseous abnormalities. [facility]-[id number] Performing Organization Address [facility] Phone Number [facility] [address] [place] [address] * ECG ED Preliminary Interpretation - Not an Order (10/30/2018 8:04 PM CDT) Only the most recent of 10 results within the time period is included. Narrative Performed At Paddy Martin MD 11/02/20183:48 AM ECG ED Preliminary Interpretation - Not an Order Performed by: Paddy Martin MD Authorized by: Paddy Martin MD ECG reviewed by ED Physician in the absence of a sales and events coordinator: yes Interpretation: Interpretation: normal Rate: ECG rate:87 ECG rate assessment: normal Rhythm: Rhythm: sinus rhythm Ectopy: Ectopy: none QRS: QRS axis:Normal QRS intervals:Normal Conduction: Conduction: normal ST segments: ST segments:Normal T waves: T waves: normal * ECG 12 lead (10/30/2018 7:42 PM CDT) Only the most recent of 18 results within the time period is included. Ventricular 87 [facility] rate Atrial rate 87 [facility] MS interval 150 [facility] QRSD interval 84 [facility] QT interval 376 [facility] QTC interval 452 [facility] P axis 1 37 [facility] QRS axis 1 40 [facility] T wave axis 25 [facility] EKG impression Normal sinus rhythm-Normal [facility] MUSE ECG-In automated comparison with ECG of 17-OCT-2018 09:56,-No significant change was found- Specimen Narrative Performed At Performing Organization Address [facility] Phone Number [facility] MUSE [address] [place] [address] * B natriuretic peptide (10/30/2018 7:42 PM CDT) Only the most recent of 8 results within the time period is included. BNP 5 0 - 100 pg/mL [facility] Specimen Blood Performing Organization Address City/State/Zipcode Phone Number [facility] [address] [place] [address] PATHOLOGY AND GENOMIC MEDICINE [facility] [address] [place] [address] HOSPITAL * Lipid panel (10/18/2018 7:10 AM CDT) Only the most recent of 2 results within the time period is included. Cholesterol 217 (H) <200 mg/dL [facility] Triglycerides 66 (A) <150 mg/dL [facility] HDL cholesterol 67 >40 mg/dL [facility] LDL cholesterol 148 (H)Comment: Result <100 mg/dL [place] obtained by direct LDL [facility] Comment: [facility] Total Cholesterol [facility] (mg/dL) <200 Desirable 200-239Borderline -high >=240High Triglycerides (mg/dL) <150 Normal 150-199Borderline -high 200-499High >=500Very high HDL Cholesterol (mg/dL) <40Low (male) <40Low (female) LDL Cholesterol (mg/dL) <100 Optimal 100-129Near or above optimal 130-159Borderline -high 160-189High >=190Very high Risk Catergories that modify LDL goals. Risk Catergories LDL goal (mg/dL) CHD and CHD risk equivalent<100 (10-year risk >20%) Multiple (2+) risk factors <130 (10-year risk=<20%) 0-1 risk factors <160 (<10-year risk) Defining levels of lipids in metabolic syndrome Triglycerides >=150 mg/dL HDL Cholesterol Men <40 mg/dL Women <40 mg/dL Non-HDL cholesterol is a second target for therapy in persons with high triglycerides (>=200 mg/dL) Specimen Plasma specimen Performing Organization Address City/State/Zipcode Phone Number [facility] [place] [id number] [place] [address] [place] [address] PATHOLOGY AND GENOMIC MEDICINE [address] [place] [address] [facility] * Gram stain (10/17/2018 3:45 PM CDT) Only the most recent of 2 results within the time period is included. Gram stain No WBC's or organisms seen. GARC[facility] result Comment: [facility] Specimen Information [facility] Specimen Source: Urine Specimen Site: Catheterized Specimen Urine - Catheterized Performing Organization Address City/[facility]/Zipcode Phone Number [facility] [place] [address] PATHOLOGY [place] [address] HOSPITAL * Urine culture (10/17/2018 3:45 PM CDT) Only the most recent of 2 results within the time period is included. Urine culture Mixed jayda 10-4 col/cc [place] isolate Comment: ORTH[facility]OXY Specimen Information [facility] Specimen Source: Urine Specimen Site: Catheterized Specimen Urine - Catheterized Performing Organization Address City/[facility] Phone Number [facility] [place] [address] PATHOLOGY AND GENOMIC MEDICINE [address] * Urinalysis screen and microscopy, with reflex to culture (10/17/2018 3:30 PM CDT) Only the most recent of 2 results within the time period is included. Specimen site Catheterized [facility] Color, UA Yellow [facility] Appearance, UA Slightly-Cloudy [facility] Specific 1.010 1.001 - 1.035 [place] gravity, UA [facility] pH, UA 5.0 5.0 - 8.5 [facility] Protein, UA Negative Negative [facility] Glucose, UA Negative Negative [facility] Ketones, UA Negative Negative [facility] Bilirubin, UA Negative Negative [facility] Blood, UA Negative Negative [facility] Nitrite, UA Negative Negative [facility] Urobilinogen, Negative <2.0 [facility] Leukocyte Small (A) Negative [place] esterase, UA [facility] Epithelial Many Few /HPF [place] cells, UA [facility] Round Moderate 0 - 1 /HPF [place] epithelial [facility] cells, UA [facility] WBC, UA 6-10 (H) 0 - 4 /HPF [facility] RBC, UA 0-5 0 - 5 /HPF [facility] Bacteria, UA Few None seen [facility] Yeast, UA None seen [facility] Yeast with None seen [place] [facility] Hyaline casts, >21 /LPF [facility] Specimen Urine Performing Organization Address [facility] Phone Number [address] [place] [address] PATHOLOGY AND GENOMIC MEDICINE [address] * Phosphorus level (10/17/2018 10:21 AM CDT) Only the most recent of 4 results within the time period is included. Pathologist [facility] Phosphorus 3.2 2.4 - 4.5 mg/dL [facility] Specimen Plasma specimen Performing Organization Address [facility] Phone Number [address] [place] [address] PATHOLOGY AND GENOMIC MEDICINE [address] * Magnesium level (10/17/2018 10:21 AM CDT) Only the most recent of 10 results within the time period is included. Pathologist [facility] Magnesium 2.4 1.6 - 2.6 mg/dL [facility] Specimen Plasma specimen Performing Organization Address [facility] Phone Number [address] [place] [address] PATHOLOGY AND GENOMIC MEDICINE [address] * Alcohol level, blood (10/17/2018 10:21 AM CDT) Alcohol None Detected mg/dL [place] Comment: [facility] None Detected Legal Intoxication in [place]80 mg/dL (0.08%) - Whole Blood Toxic Concentration 200 mg/dL (0.2%) Potentially Fatal3 50 - 500 mg/dL (0.35 - 0.5%) Alcohol percent None Detected % [facility] Specimen Plasma specimen Performing Organization Address [facility]/Zipcode Phone Number [facility] [place] [address] [place] [address] PATHOLOGY AND GENOMIC MEDICINE [facility] [address] [place] [address] [facility] * Hepatic function panel (10/09/2018 5:50 AM CDT) Only the most recent of 3 results within the time period is included. Albumin 3.1 (L) 3.5 - 5.0 g/dL [facility] Total bilirubin 0.3 0.2 - 1.2 mg/dL [facility] Bilirubin <0.2 0.0 - 0.4 mg/dL [place] direct [facility] Alkaline 84 0 - 104 U/L [place] phosphatase [facility] Protein 6.5 6.3 - 8.3 g/dL [facility] ALT 10 5 - 50 U/L [facility] AST 16 10 - 35 U/L [facility] Specimen Plasma specimen Performing Organization Address City/State/Zipcode Phone Number [facility] [place] [address] [place] [address] PATHOLOGY AND GENOMIC MEDICINE [place] [id number] [facility] [address] * Basic metabolic panel (10/09/2018 5:50 AM CDT) Only the most recent of 12 results within the time period is included. Sodium 141 135 - 150 mEq/L [facility] Potassium 3.1 (L) 3.5 - 5.0 mEq/L [facility] Chloride 98 98 - 112 mEq/L [facility] CO2 34 (H) 24 - 31 mmol/L [facility] Anion gap 9@ANIO 7 - 15 mEq/L [facility] BUN 9 7 - 18 mg/dL [facility] Creatinine 0.80 0.50 - 0.90 mg/dL [facility] Glucose 237 (H) 65 - 100 mg/dL [facility] Calcium 8.5 8.3 - 10.2 mg/dL [facility] Specimen Plasma specimen Performing Organization Address City/State/Zipcode Phone Number [facility] DEPARTMENT OF [address] [place] [address] PATHOLOGY AND GENOMIC MEDICINE [facility] [address] [place] [address] [facility] * Echocardiogram complete w contrast and 3D if needed (10/04/2018 12:21 PM CDT) Velocity Ratio 0.72 m/s [facility] (V1/V2) IVS,d 0.81 cm [facility] EF 39.88 % [facility] Ascending aorta 2.71 cm [facility] LVPWD,d 0.85 cm [facility] AoV Mean PG 4.75 mmHg [facility] AV LVOT peak 4.04 mmHg [facility] gradient MV valve area p 5.24 cm2 [facility] 1/2 method PV Pk Grad 7.91 mmHg [facility] E/A ratio 1.67 [facility] E wave 142.83 msec [facility] decelartion time IVRT 62.80 msec [facility] LVOT Diam,S 2.02 cm [facility] LVOT area 3.20 cm2 [facility] LVOT Vmax 1.06 m/s [facility] LVOT VTI 0.24 m [facility] AoV Peak PG 8.60 mmHg [facility] MV Peak E Jose Armando 1.07 m/s [facility] MV stenosis 41.97 ms [facility] pressure 1/2 time MV Peak A Jose Armando 0.64 m/s [facility] BSA 2.37 m2 [facility] Ao Root 2.89 cm [facility] Diameter AoV Area, Vmax 2.19 cm2 [facility] AoV Area, VTI 2.13 cm2 [facility] AoV Vmax 1.47 m/s [facility] BSA Lopez 2.59 m2 [facility] BSA Haycock 2.57 m2 [facility] IVS/LVPW,2D 0.95 [facility] Left Atrium 4.62 cm [facility] Dimension Anterior LV,d 4.94 cm [facility] LV,s 3.98 cm [facility] PV VMAX 1.41 m/s [facility] TR Vpeak 2.57 mm/s [facility] BMI 45.58 kg/m2 [facility] MV E A ratio 1.66 [facility] TR pk grad 18.82 mmHg [facility] AoV area i VTI 0.90 cm2/m2 [facility] BSA Sara Ao Root 2.89 cm [facility] Diameter LV SYS VOL 69.17 ml [facility] LV DANIEL VOL 115.06 ml [facility] LA Vol MOD A4C 63.63 ml [facility] LV SI Teich 2D 19.35 ml/m2 [facility] LV SV Teich 2D 45.89 ml [facility] LV Vol s Teich 69.17 ml [facility] PSAX LVOT SI 29.59 ml/m2 [facility] AoV Vmn 1.02 [facility] IVS s 2D 1.27 [facility] LV FS Cube 2D 19.46 [facility] LV FS Teich 2D 19.46 [facility] AoV VTI 0.33 m [facility] LV EF,2D 47.75 % [facility] MV AE ratio 0.60 [facility] LVOT Vmn 0.77 [facility] Pt Size 170.18 [facility] Pt Wt 132.00 [facility] Aov area Vmn 2.25 cm2 [facility] LVOT mean grad 2.61 mmHg [facility] MAX Pred HR 173.71 [facility] 85 of MPHR 147.66 [facility] AoV area I VMN 0.95 cm2/m2 [facility] bsa Calc MPHR 173.71 bpm [facility] IVS pct thck 56.83 % [facility] PLAX LV SI Cube 2D 24.30 ml/m2 [facility] LV SV Cube 2D 57.63 ml [facility] LV vol d cube 120.68 ml [facility] 2D LV vol s cube 63.05 ml [facility] 2D LVPW pct thck 55.31 % [facility] PLAX LVPW s PLAX 1.31 cm [facility] MV Decel slope 7.49 m/s2 [facility] Pred Exer Dur 9.39 [facility] R1 Pred METS R1 8.68 [facility] Specimen Narrative Performed At [facility] Left Ventricular ejection fraction is 50 - 55%. Spectral Doppler shows impaired relaxation pattern of left ventricular diastolic filling. There is borderline left ventricular concentric hypertrophy. Performing Organization Address City/State/Zipcode Phone Number [facility] [address] [place] [address] * D-dimer (10/04/2018 9:10 AM CDT) Only the most recent of 2 results within the time period is included. [facility] D-dimer <0.27 0.00 - 0.40 ug/mL [place] Comment: U [facility] Units are ug/ml Fibrinogen [facility] Unit. HOSPITAL When combined with low clinical probability, D-dimer results of less than 0.5 ug/ml FEU have a good negativepredictive value in excluding PE or DVT. For D-dimer results greater than 0.5ug/ml FEU further testing is indicated if PE or DVT is suspectedclinically. Elevated D-dimer results have been reported in DVT, PE, and DIC cases and may indicate the presence of a clot. D-dimer results may be elevated due to old age, , inflammatory diseases, trauma, post-operative states, sepsis, and malignancies. Specimen Blood Performing Organization Address City/[facility] [place] [address] PATHOLOGY [facility] MEDICINE [address] * Blood culture, aerobic & anaerobic (10/02/2018 10:29 PM CDT) Only the most recent of 4 results within the time period is included. [facility] Blood culture No growth after 5 days of [place] isolate incubation. [facility] Comment: HOSPITAL Specimen Information Specimen Source: Blood Specimen Site: [facility] Specimen Blood Performing Organization Address City/[facility] Mex[facility]ode Phone Number [facility] DEPARTMENT OF [address] [place] [address] PATHOLOGY AND [facility] MEDICINE [address] * Thyroid stimulating hormone (10/02/2018 10:25 PM CDT) Only the most recent of 2 results within the time period is included. [facility] TSH 2.30 0.27 - 4.20 uIU/mL [facility] Specimen Plasma specimen Performing Organization Address City/[facility]/Zipcode Phone Number [facility] [place] [address] [place] [address] PATHOLOGY AND GENOMIC MEDICINE [facility] [address] * Lactic acid level (10/02/2018 10:25 PM CDT) Lactic acid 2.1 0.5 - 2.2 mmol/L [place] Comment: [facility] Results called to and read [facility] by [facility] at 23:59 10/02/2018 by DILIP. Specimen Plasma specimen Performing Organization Address City/[facility]/Zipcode Phone Number [facility] [place] [address] [place] [address] PATHOLOGY AND GENOMIC MEDICINE [facility] [address] * Creatine kinase, total (CPK) (10/02/2018 10:25 PM CDT) Only the most recent of 2 results within the time period is included. Creatine kinase 109 26 - 192 U/L [facility] Specimen Plasma specimen Performing Organization Address City/[facility] Phone Number [facility] [address] [place] [address] PATHOLOGY AND [facility] MEDICINE [facility] [address] * Lipase level (09/17/2018 1:11 AM CDT) Only the most recent of 3 results within the time period is included. Lipase 18 13 - 60 U/L [facility] Specimen Plasma specimen Performing Organization Address City/[facility]x Phone Number [facility] [address] [place] [address] PATHOLOGY AND [facility] MEDICINE [place] [id number] [address] * XR Chest 1 Vw Portable (09/17/2018 1:03 AM CDT) Only the most recent of 6 results within the time period is included. Specimen Narrative Performed At Examination:XR CHEST 1 VW PORTABLE [facility] Clinical History:chest pain Comparison: None. Technique: Single frontal view of the chest is obtained. Findings: Tip of the left Port-A-Cath is at the distal SVC. No infiltrate is seen. No pneumothorax is seen. Low lung volume limits the study. The heart size is normal. No pleural effusion is seen. Impression: No acute cardiopulmonary disease identified. [id number] Procedure Note Interface, Radiology Results Incoming - 09/17/2018 1:09 AM CDT Examination: XR CHEST 1 VW PORTABLE Clinical History: chest pain Comparison: None. Technique: Single frontal view of the chest is obtained. Findings: Tip of the left Port-A-Cath is at the distal SVC. No infiltrate is seen. No pneumothorax is seen. Low lung volume limits the study. The heart size is normal. No pleural effusion is seen. Impression: No acute cardiopulmonary disease identified. [facility]-[id number] Performing Organization Address City/State/Zipcode Phone Number [facility] [address] [place] [address] * POC glucose (08/29/2018 6:09 AM CDT) Only the most recent of 6 results within the time period is included. POC glucose 127 (H) 65 - 100 mg/dL [place] Comment: JONH BENNETT Meter ID: [id number] [facility] Video Machines Mechanic: [facility] Specimen Performing Organization Address City/State/Zipcode Phone Number [facility] DEPARTMENT OF [address] [place] [address] PATHOLOGY AND GENOMIC MEDICINE [facility] [place] [address] * CTA Neck W Wo Contrast (08/27/2018 2:18 PM CDT) Specimen Narrative Performed At EXAMINATION:CT ANGIOGRAM NECK W WO CONTRAST [facility] [place] CLINICAL HISTORY:STROKE COMPARISON:None. TECHNIQUE: Neck CTA with multi-planar MIP and volumetric rendering (3D) after bolus intravenous iodinated contrast administration was performed. All CT images were acquired using low-dose technique with automated exposure control. FINDINGS: Normal branching pattern of the aortic arch. Slight dominance of the left vertebral artery. The bilateral cervical carotid and vertebral arterial systems appear widely patent without evidence of dissection or stenosis (0% by NASCET criteria). Left chest wall port with central venous catheter likely terminating in the upper right atrium. Limited evaluation of the neck demonstrates no evidence of abnormal mass, collection, or suspicious osseous lesion. IMPRESSION: No significant cervical carotid or vertebral artery stenosis. [id number] Procedure Note Interface, Radiology Results Incoming - 08/27/2018 2:26 PM CDT EXAMINATION: CT ANGIOGRAM NECK W WO CONTRAST CLINICAL HISTORY: STROKE COMPARISON: None. TECHNIQUE: Neck CTA with multi-planar MIP and volumetric rendering (3D) after bolus intravenous iodinated contrast administration was performed. All CT images were acquired using low-dose technique with automated exposure control. FINDINGS: Normal branching pattern of the aortic arch. Slight dominance of the left vertebral artery. The bilateral cervical carotid and vertebral arterial systems appear widely patent without evidence of dissection or stenosis (0% by NASCET criteria). Left chest wall port with central venous catheter likely terminating in the upper right atrium. Limited evaluation of the neck demonstrates no evidence of abnormal mass, collection, or suspicious osseous lesion. IMPRESSION: No significant cervical carotid or vertebral artery stenosis. [id number] Performing Organization Address [facility] Phone Number [facility] [address] [place] [address] * CTA Head W Wo Contrast (08/27/2018 2:17 PM CDT) Specimen Narrative Performed At EXAMINATION:CT ANGIOGRAM HEAD W WO CONTRAST [facility] COMPARISON:None CLINICAL HISTORY:STROKE COMMENTS:Axial CT scan slices of the head were obtained. Postprocessing for angiographic evaluation including 3-D reconstructions was obtained. CT imaging was performed with iterative reconstruction technique and/or automated exposure control to reduce radiation dose. FINDINGS:There is a small left-sided posterior communicating artery identified. The internal carotid arteries do not show any significant stenosis. The basilar artery shows no significant stenosis. The proximal cerebral arteries show no significant focal stenosis. The major venous sinuses of the head appear to be intact. IMPRESSION:No significant stenosis in the proximal cerebral arteries. [id number] Procedure Note Interface, Radiology Results Incoming - 08/27/2018 2:29 PM CDT EXAMINATION: CT ANGIOGRAM HEAD W WO CONTRAST COMPARISON: None CLINICAL HISTORY: STROKE COMMENTS: Axial CT scan slices of the head were obtained. Postprocessing for angiographic evaluation including 3-D reconstructions was obtained. CT imaging was performed with iterative reconstruction technique and/or automated exposure control to reduce radiation dose. FINDINGS: There is a small left-sided posterior communicating artery identified. The internal carotid arteries do not show any significant stenosis. The basilar artery shows no significant stenosis. The proximal cerebral arteries show no significant focal stenosis. The major venous sinuses of the head appear to be intact. IMPRESSION: No significant stenosis in the proximal cerebral arteries. [id number] Performing Organization Address [facility] Phone Number [facility] [address] [place] [address] * CT Stroke Brain Wo Contrast (08/27/2018 1:12 PM CDT) Only the most recent of 3 results within the time period is included. Specimen Narrative Performed At EXAMINATION: CT STROKE BRAIN WO CONTRAST [facility] CLINICAL HISTORY: STROKE, Left sided weaknessCode CVA COMPARISON:06/18/2018. TECHNIQUE: Noncontrast CT of the brain was performed. Both soft tissue and bone reconstruction algorithms are interpreted. CT imaging was performed with iterative reconstruction techniques and/or automated exposure control to reduce radiation dose. FINDINGS: No acute cortical infarct is identified. No intracranial hemorrhage, extra-axial collection, mass effect or hyperdense vessel is seen. There is no acute hydrocephalus. Visualized portions of the paranasal sinuses show no air-fluid level. Mastoid air cells are clear. No fracture or aggressive bony lesion is seen. IMPRESSION: No acute intracranial abnormality identified. Findings were discussed with Dr. LE CALDERA at 08/27/2018 1:18 PM who verbalized understanding. [id number] Procedure Note Hm Interface, Radiology Results Incoming - 08/27/2018 1:22 PM CDT EXAMINATION: CT STROKE BRAIN WO CONTRAST CLINICAL HISTORY: STROKE, Left sided weakness Code CVA COMPARISON: 06/18/2018. TECHNIQUE: Noncontrast CT of the brain was performed. Both soft tissue and bone reconstruction algorithms are interpreted. CT imaging was performed with iterative reconstruction techniques and/or automated exposure control to reduce radiation dose. FINDINGS: No acute cortical infarct is identified. No intracranial hemorrhage, extra-axial collection, mass effect or hyperdense vessel is seen. There is no acute hydrocephalus. Visualized portions of the paranasal sinuses show no air-fluid level. Mastoid air cells are clear. No fracture or aggressive bony lesion is seen. IMPRESSION: No acute intracranial abnormality identified. Findings were discussed with Dr. LE CALDERA at 08/27/2018 1:18 PM who verbalized understanding. [id number] Performing Organization Address City/State/Zipcode Phone Number [facility] [address] [place] [address] * CT Abdomen Pelvis W Contrast (07/16/2018 4:50 AM BIOMETRIC SCREENER) Specimen Narrative Performed At CT ABDOMEN PELVIS W CONTRAST [facility] CLINICAL INDICATION: abdominal pain TECHNIQUE:Multidetector CT imaging of the abdomen and pelvis was performed following the intravenous administration of iodinated contrast with multiplanar reconstructions.CT imaging was performed with iterative reconstruction technique and/or automated exposure control to reduce radiation dose. COMPARISON:04/16/2016. FINDINGS: LOWER THORAX:Aside from mild right basilar atelectasis, the visualized lungs are clear. LIVER:There is hepatic steatosis. BILIARY:There are surgical changes related to cholecystectomy. There is no abnormal biliary ductal dilation. SPLEEN:Normal. PANCREAS:Normal. ADRENALS:Normal. KIDNEYS:No mass or hydronephrosis. There are punctate, nonobstructing stones within both kidneys. 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 Large and small bowel are normal in caliber.There are no inflammatory changes. VASCULAR:Unremarkable LYMPH NODES:No enlarged lymph nodes in the abdomen or pelvis. PELVIS:The urinary bladder is normal. There are surgical changes related to hysterectomy. BONES:There are no acute osseous abnormalities. OTHER:No ascites or pneumoperitoneum. IMPRESSION: No acute intra-abdominal abnormality is identified. [id number] Procedure Note Interface, Radiology Results Incoming - 07/16/2018 4:[address] ABDOMEN PELVIS W CONTRAST CLINICAL INDICATION: abdominal pain TECHNIQUE: Multidetector CT imaging of the abdomen and pelvis was performed following the intravenous administration of iodinated contrast with multiplanar reconstructions. CT imaging was performed with iterative reconstruction technique and/or automated exposure control to reduce radiation dose. COMPARISON: 04/16/2016. FINDINGS: LOWER THORAX: Aside from mild right basilar atelectasis, the visualized lungs are clear. LIVER: There is hepatic steatosis. BILIARY: There are surgical changes related to cholecystectomy. There is no abnormal biliary ductal dilation. SPLEEN: Normal. PANCREAS: Normal. ADRENALS: Normal. KIDNEYS: No mass or hydronephrosis. There are punctate, nonobstructing stones within both kidneys. 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 Large and small bowel are normal in caliber. There are no inflammatory changes. VASCULAR: Unremarkable LYMPH NODES: No enlarged lymph nodes in the abdomen or pelvis. PELVIS: The urinary bladder is normal. There are surgical changes related to hysterectomy. BONES: There are no acute osseous abnormalities. OTHER: No ascites or pneumoperitoneum. IMPRESSION: No acute intra-abdominal abnormality is identified. [facility]-[id number] Performing Organization Address City/State/Zipcode Phone Number [facility] [address] [place] [address] * hCG qualitative, urine screen (07/16/2018 2:30 AM BIOMETRIC SCREENER) hCG Negative Negative [place] qualitative, Comment: JONH BENNETT urine The manufacturers stated [facility] sensitivity of HcG test for HOSPITAL serum is >/=10 mIU/ml and urine is >/=20mIU/ml. Specimen Urine Performing Organization Address City/State/Zipcode Phone Number [facility] [place] [place] [address] [place] [address] PATHOLOGY AND GENOMIC MEDICINE [place] JONH BENNETT [address] [place] [address] [facility] * MRI Brain W Wo Contrast (05/13/2018 7:41 PM BIOMETRIC SCREENER) Specimen Narrative Performed At EXAM: MRI BRAIN WITHOUT CONTRAST [facility] CLINICAL HISTORY: headache TECHNIQUE: Multiplanar and multisequence MRI imaging of the brain was obtained without contrast. COMPARISON:CT brain, 05/07/2018; MRI brain, 04/27/2018 FINDINGS: No diffusion restriction to suggest acute infarct. Parenchymal volume is within normal limits. There is no abnormal parenchymal or leptomeningeal enhancement. No acute intracranial hemorrhage, mass, hydrocephalus, or extra-axial fluid collection identified. Dilated perivascular space noted inferior to the left lentiform nucleus. Although this examination is not optimized for the sella, pituitary is grossly normal in appearance. Midline structures are maintained. The major flow voids in the skull base are identified. Orbits are unremarkable. Mucosal retention cysts and/or mucosal thickening is identified inferiorly within the bilateral maxillary sinuses. Remaining paranasal sinuses are clear. Mastoid air cells are normally pneumatized. IMPRESSION: No acute intracranial abnormality identified. There is no enhancing lesion in the brain. [facility]-[id number] Procedure Note Hm Interface, Radiology Results Incoming - 05/13/2018 9:23 PM BIOMETRIC SCREENER EXAM: MRI BRAIN WITHOUT CONTRAST CLINICAL HISTORY: headache TECHNIQUE: Multiplanar and multisequence MRI imaging of the brain was obtained without contrast. COMPARISON: CT brain, 05/07/2018; MRI brain, 04/27/2018 FINDINGS: No diffusion restriction to suggest acute infarct. Parenchymal volume is within normal limits. There is no abnormal parenchymal or leptomeningeal enhancement. No acute intracranial hemorrhage, mass, hydrocephalus, or extra-axial fluid collection identified. Dilated perivascular space noted inferior to the left lentiform nucleus. Although this examination is not optimized for the sella, pituitary is grossly normal in appearance. Midline structures are maintained. The major flow voids in the skull base are identified. Orbits are unremarkable. Mucosal retention cysts and/or mucosal thickening is identified inferiorly within the bilateral maxillary sinuses. Remaining paranasal sinuses are clear. Mastoid air cells are normally pneumatized. IMPRESSION: No acute intracranial abnormality identified. There is no enhancing lesion in the brain. [facility]-[id number] Performing Organization Address City/[facility]/Zipcode Phone Number [facility] [address] [place] [address] * T4, free (05/13/2018 12:40 AM BIOMETRIC SCREENER) T4, free 0.96 0.90 - 1.70 ng/dL [facility] Specimen Plasma specimen Performing Organization Address [facility] [address] PATHOLOGY AND [facility] [address] * Prealbumin level (05/13/2018 12:40 AM BIOMETRIC SCREENER) Prealbumin 21 16 - 32 mg/dL [facility] Specimen Serum Performing Organization Address [facility] Phone Number [facility] DEPARTMENT OF [address] [place] [address] PATHOLOGY AND [facility] [address] * Hemoglobin A1c (05/13/2018 12:40 AM BIOMETRIC SCREENER) Only the most recent of 2 results within the time period is included. Hemoglobin A1C 5.2 4.0 - 6.0 % [place] Comment: [facility] Less than 6% - Goal of therapy for Type II Diabetes Less than 7%-Goal of therapy for Type I Diabetes Less than 8%-Accepta ble control for Type I or Type II Diabetes Greater than 8%-Unacceptabl e control; action indicated. ([id number]) Specimen Blood Performing Organization Address [facility] Phone Number [facility] [address] [place] [address] PATHOLOGY AND GENOMIC MEDICINE [facility] [address] * Bilirubin direct (05/13/2018 12:40 AM BIOMETRIC SCREENER) Bilirubin <0.2 0.0 - 0.4 mg/dL [facility] Specimen Plasma specimen Performing Organization Address City/[facility]/Zipcode Phone Number [facility] [place] [address] [place] [address] PATHOLOGY AND GENOMIC MEDICINE [address] * Amylase level (05/13/2018 12:40 AM BIOMETRIC SCREENER) Pathologist [facility] Amylase 36 28 - 100 U/L [facility] Specimen Plasma specimen Performing Organization Address [facility] Phone Number [facility] [address] [place] [address] PATHOLOGY AND [facility] [address] * MRI Stroke Brain Wo Contrast (04/27/2018 9:52 AM BIOMETRIC SCREENER) Specimen Narrative Performed At [facility] EXAMINATION:MRI STROKE BRAIN WO CONTRAST REASON FOR EXAMINATION: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 Coronal and sagittal and axial images are obtained. No intravenous contrast given. FINDINGS: Diffusion weighted images did not demonstrate any evidence of any acute infarction. Mucous retention cysts are seen within the maxillary sinuses bilaterally. Normal flow voids are seen within the internal carotid arteries bilaterally. The posterior fossa does not demonstrate any masses. Cerebellopontine angles are unremarkable. The malia and midbrain demonstrate no abnormality. The ventricles are symmetrical without any mass effect or any midline shift. There is no evidence of any extra-axial fluid collection. Common There is no parenchymal hemorrhage or acute infarction or mass lesion. Corpus callosum is unremarkable. The visualized portions of the cervical cord demonstrate no abnormality. The sella turcica is not enlarged. IMPRESSION: 1. There is no evidence of any acute infarction. 2. There is no parenchymal mass nor hemorrhage. 3. The appearance of the brain is unchanged from prior study. [id number] Procedure Note Hm Interface, Radiology Results Incoming - 04/27/2018 10:26 AM BIOMETRIC SCREENER EXAMINATION: MRI STROKE BRAIN WO CONTRAST REASON FOR EXAMINATION: 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 Coronal and sagittal and axial images are obtained. No intravenous contrast given. FINDINGS: Diffusion weighted images did not demonstrate any evidence of any acute infarction. Mucous retention cysts are seen within the maxillary sinuses bilaterally. Normal flow voids are seen within the internal carotid arteries bilaterally. The posterior fossa does not demonstrate any masses. Cerebellopontine angles are unremarkable. The malia and midbrain demonstrate no abnormality. The ventricles are symmetrical without any mass effect or any midline shift. There is no evidence of any extra-axial fluid collection. Common There is no parenchymal hemorrhage or acute infarction or mass lesion. Corpus callosum is unremarkable. The visualized portions of the cervical cord demonstrate no abnormality. The sella turcica is not enlarged. IMPRESSION: 1. There is no evidence of any acute infarction. 2. There is no parenchymal mass nor hemorrhage. 3. The appearance of the brain is unchanged from prior study. [id number] Performing Organization Address City/State/Zipcode Phone Number [facility] [address] [place] [address] * Estimated GFR (01/24/2018 1:10 PM CDT) Only the most recent of 6 results within the time period is included. GFR Non Af Amer 77 mL/min/1.73 m2 [facility] OF PATHOLOGY AND GENOMIC MEDICINE GFR Af Amer >90 mL/min/1.73 m2 [facility] Comment: OF PATHOLOGY Chronic kidney disease: <60 AND GENOMIC mL/min/1.73m2 MEDICINE Kidney failure: <15 mL/min/1.73m2 The estimated GFR is calculated from the IDMS-traceable Modification of Diet in Renal Disease Equation. The accuracy of the calculation is poor when the creatinine is normal. Calculated values >90 mL/min/1.73m2 are not reported. This equation has not been validated in children (<18 years), women, the elderly (>70 years), or ethnic groups other than Caucasians and Americans. Specimen Plasma specimen Performing Organization Address City/[facility] Phone Number [facility] [place] [address] [place] [address] PATHOLOGY AND GENOMIC MEDICINE * Ionized calcium (01/24/2018 1:10 PM CDT) Only the most recent of 2 results within the time period is included. pH 7.32 [facility]OLOGY AND GENOMIC MEDICINE Ionized calcium 1.14 1.11 - 1.32 mmol/L [facility] OF [facility]OLOGY AND GENOMIC MEDICINE Specimen Plasma specimen Performing Organization Address City/State/Zipcode Phone Number [facility] [place] [place] [address] [place] [address] PATHOLOGY AND GENOMIC MEDICINE * Albumin level (01/24/2018 3:08 AM CDT) Albumin 2.5 (L) 3.5 - 5.0 g/dL [facility]OLOGY AND GENOMIC MEDICINE Specimen Plasma specimen Performing Organization Address [facility] [place] [address] PATHOLOGY AND GENOMIC MEDICINE * Myoglobin (01/24/2018 1:47 AM CDT) Only the most recent of 2 results within the time period is included. Myoglobin <21 (A) 21 - 72 ng/mL [facility] DEPARTMENT OF PATHOLOGY AND GENOMIC MEDICINE Specimen Plasma specimen Performing Organization Address City/[facility] Phone Number [facility] DEPARTMENT OF [address] [place] [address] PATHOLOGY AND GENOMIC MEDICINE * Hybrid or fluoroscopy (11/13/2017 8:16 AM CDT) Specimen Narrative Performed At See operative report for the same day after 11/12/2017 Insurance Type Payer Benefit Subscriber ID Effective Phone Address Plan / Dates Group O [employer]IG[employer] CIGNA OPEN xxxxxxxxxxx [id number] ACCESS/NET resent WORK Advance Directives Patient has advance care planning documents, and code status on file. For more i nformation, please contact: Jose Turcios [address] [place] [address] Date Inactivated Comments Code Status Date Activated 10/18/2018 4:47 PM Full Code 10/17/2018 1:00 PM Code Status decision reached by: Patient 02/01/2016 5:30 PM Full Code 01/31/2016 7:31 AM Code Status decision reached by: Patient 10/23/2015 9:51 PM Full Code 10/19/2015 3:11 PM Code Status decision reached by: Patient
--- OUTSIDE RECORDS SUMMARY | 2018-11-13 05:39 | XMS REPORT | Continuity of Care Document ---
Author Author [facility] Interface Address Unknown Phone Unavailable Problems Problem Status Onset Date Classification Date Reported Comments Source Left-sided weakness 10/02/2017 10/05/2017 [facility] POSS STROKE Active 10/02/2017 [facility] DEPRESSIVE DISORDER, MAJOR, RECURRENT EPISODE, UNSPECIFIED Active 12/16/2016 Diagnosis 09/14/2018 [facility] ANXIETY DISORDER, UNSPECIFIED Active 12/16/2016 Diagnosis 09/14/2018 [facility] BIPOLAR AND RELATED DISORDER, UNSPECIFIED Inactive 09/29/2016 Problem 09/14/2018 [facility] HEADACHE STUTTERING SPEECH WEAKNESS Active 01/31/2015 [facility] CVA Active 01/31/2015 [facility] LIFE FLIGHT Active 01/31/2015 [facility] Anemia Resolved Problem 10/05/2017 [facility] Anxiety Resolved Problem 10/05/2017 [facility] Depression Active Problem 10/05/2017 [facility] Iron deficiency anemia secondary to inadequate dietary iron intake Active Problem 10/05/2017 [facility] Cataract Resolved Problem 10/05/2017 [facility] Migraine Resolved Problem 10/05/2017 [facility] Port Resolved Problem 10/05/2017 [facility] Sleep apnea Resolved Problem 10/05/2017 [facility] HEADACHE Active [facility] Medications Medication Details Route Status Patient Instructions Ordering Provider Order Date Source CLONAZEPAM Take 1 tablet by mouth twice a day as needed for anxiety. Active Take 1 tablet by mouth twice a day as needed for anxiety. 07/04/2018 [facility] ABILIFY ORAL TABLET 10 MG TAKE 1 TABLET BY MOUTH ONCE DAILY AT BEDTIME Active TAKE 1 TABLET BY MOUTH ONCE DAILY AT BEDTIME 06/13/2018 [facility] DOXEPIN HCL Take 1-2 cap by mouth at bedtime as needed for sleep. Active Take 1-2 cap by mouth at bedtime as needed for sleep. 05/16/2018 [facility] HYDROCODONE-ACETAMINOPHEN TAKE ONE (1) TABLET(S) BY MOUTH EVERY SIX HOURS NEEDED. Active TAKE ONE (1) TABLET(S) BY MOUTH EVERY SIX HOURS NEEDED. 01/02/2018 [facility] MORPHINE SULFATE ER 60 MG ORAL TABLET EXTENDED RELEASE Active 01/02/2018 [facility] PANTOPRAZOLE SODIUM Active 12/14/2017 [facility] METOPROLOL TARTRATE TAKE ONE-HALF (1/2) TABLET(S) BY MOUTH TWICE A DAY HOLD IF BLOOD PRESSURE IS LESS THAN 110 OR HEART RATE IS LESS THAN 60. Active TAKE ONE-HALF (1/2) TABLET(S) BY MOUTH TWICE A DAY HOLD IF BLOOD PRESSURE IS LESS THAN 110 OR HEART RATE IS LESS THAN 60. 12/07/2017 [facility] ASPIRIN EC 81 MG ORAL TABLET DELAYED RELEASE TAKE ONE (1) TABLET(S) BY MOUTH ONCE A DAY. Active TAKE ONE (1) TABLET(S) BY MOUTH ONCE A DAY. 12/07/2017 [facility] ATORVASTATIN CALCIUM TAKE ONE (1) TABLET(S) BY MOUTH AT BEDTIME. Active TAKE ONE (1) TABLET(S) BY MOUTH AT BEDTIME. 11/23/2017 [facility] Benadryl 25 mg, 1 cap, Route: PO, Drug form: CAP, ONCE, Dosing Weight 113.636, kg, Priority: STAT, Start date: 10/02/17 14:04:00 CDT, Stop date: 10/02/17 14:04:00 CDTNotes: (Same as: Benadryl) Inactive 10/02/2017 [facility] Phenergan 12.5 mg, 1 tab, Route: PO, Drug form: TAB, ONCE, Dosing Weight 113.636, kg, Priority: STAT, Start date: 10/02/17 14:04:00 CDT, Stop date: 10/02/17 14:04:00 CDTNotes: (Same as: Phenergan) Inactive 10/02/2017 [facility] Ibuprofen 600 mg, 1 tab, Route: PO, Drug form: TAB, ONCE, Dosing Weight 113.636, kg, Priority: STAT, Start date: 10/02/17 13:58:00 CDT, Stop date: 10/02/17 13:58:00 CDTNotes: (Same as: Motrin) "Do Not Crush" Take with food. Inactive 10/02/2017 [facility] Promethazine 12.5 mg, 0.5 mL, Route: IVPB, Drug form: INJ, ONCE, Dosing Weight 113.636, kg, Priority: STAT, Start date: 10/02/17 13:22:00 CDT, Stop date: 10/02/17 13:22:00 CDTNotes: Do not give IV push. (Same as: Phenergan) Inactive 10/02/2017 [facility] Acetaminophen 1,000 mg, 2 tab, Route: PO, Drug form: TAB, ONCE, Dosing Weight 113.636, kg, Priority: STAT, Start date: 10/02/17 13:22:00 CDT, Stop date: 10/02/17 13:22:00 CDTNotes: Max acetaminophen 4000 mg/day (4 gm/day). (Same as: Tylenol Extra Strength) Inactive 10/02/2017 [facility] iodixanol 100 mL, Route: IVP, Drug Form: SOLN, Dosing Weight 113.636, kg, ONCALL, STAT, Start date: 10/02/17 12:54:00 CDT, Duration: 1 doses or times, Stop date: 10/03/17 0:00:00 CDT, Dose=2.2ml/kg, Max ubqn=269pa -- "To be infused by Radiology Staff ONLY"Notes: (Same as: Fredy). WASTE: F/P - Black; E - [facility] Trash [facility] Inactive 10/02/2017 [facility] TRAZODONE HCL Take 1 1/2 - 2 tablets by mouth at bedtime as needed for sleep. No Longer Active Take 1 1/2 - 2 tablets by mouth at bedtime as needed for sleep. 03/29/2017 [facility] KLONOPIN 0.5 MG ORAL TABLET Take 1 tablet by mouth twice a day as needed for anxiety. Active Take 1 tablet by mouth twice a day as needed for anxiety. 09/29/2016 [facility] PRISTIQ 100 MG ORAL TABLET EXTENDED RELEASE 24 HOUR Take 2 tablets by mouth at bedtime. Active Take 2 tablets by mouth at bedtime. 09/29/2016 [facility] ABILIFY 5 MG ORAL TABLET Take 1 tab By Mouth take at bedtime Active Take 1 tab By Mouth take at bedtime 09/29/2016 [facility] LAMICTAL 100 MG ORAL TABLET Take 1 tab By Mouth Twice a Day Active Take 1 tab By Mouth Twice a Day 09/29/2016 [facility] ABILIFY 5 MG ORAL TABLET Take 1 tab By Mouth take at bedtime No Longer Active Take 1 tab By Mouth take at bedtime 09/29/2016 [facility] KLONOPIN 0.5 MG ORAL TABLET Take 1 tablet by mouth twice a day as needed for anxiety. No Longer Active Take 1 tablet by mouth twice a day as needed for anxiety. 09/29/2016 [facility] Allergies, Adverse Reactions, Alerts Substance Category Reaction Severity Reaction type Status Date Reported Comments Source ZOFRAN drug allergy 09/29/2016 [facility] ADVAIR drug allergy 09/29/2016 [facility] AUGMENTIN drug allergy 09/29/2016 [facility] Zofran Assertion Drug allergy Active [facility] Augmentin Assertion Drug allergy Active [facility] Advair Diskus Assertion Drug allergy Active [facility] Tape Assertion Drug allergy Active [facility] Immunizations Immunization Date Given Site Status Last Updated Comments Source influenza virus vaccine, inactivated 02/19/2015 Right deltoid completed Jessica [facility] influenza virus vaccine, inactivated 02/25/2014 Not Given [facility] Results Order Name Results Value Reference Range Date Interpretation Comments Source ELECTROLYTES AGAP 13.5 meq/L 10.0 - 20.0 10/02/2017 [facility] ELECTROLYTES eGFR 38 mL/min/1.73m2 10/02/2017 Result Comment: The eGFR is calculated using the CKD-EPI formula. In most young, healthy individuals the eGFR will be >90 mL/min/1.73m2. The eGFR declines with age. An eGFR of 60-89 may be normal in some populations, particularly the elderly, for whom the CKD-EPI formula has not been extensively validated. Use of the eGFR is not recommended in the following populations: Individuals with unstable creatinine concentrations, including patients and those with serious co-morbid conditions. Patients with extremes in muscle mass or diet. The data above are obtained from the National Kidney Disease Education Program (NKDEP) which additionally recommends that when the eGFR is used in patients with extremes of body mass index for purposes of drug dosing, the eGFR should be multiplied by the estimated BMI. [facility] ELECTROLYTES BUN 8 mg/dL 7 - 22 10/02/2017 [facility] ELECTROLYTES Creatinine Lvl 1.07 mg/dL 0.50 - 1.40 10/02/2017 [facility] ELECTROLYTES Glucose Lvl 91 mg/dL 70 - 99 10/02/2017 [facility] ELECTROLYTES Calcium Lvl 8.6 mg/dL 8.5 - 10.5 10/02/2017 [facility] ELECTROLYTES CO2 28 meq/L 24 - 32 10/02/2017 [facility] ELECTROLYTES Potassium Lvl 3.5 meq/L 3.5 - 5.1 10/02/2017 [facility] ELECTROLYTES Chloride Lvl 105 meq/L 95 - 109 10/02/2017 [facility] ELECTROLYTES Sodium Lvl 143 meq/L 135 - 145 10/02/2017 [facility] HEMATOLOGY RDW 15.6 % 11.5 - 14.5 10/02/2017 [facility] HEMATOLOGY Platelet 363 K/CMM 133 - 450 10/02/2017 [facility] HEMATOLOGY MCHC 32.2 g/dL 32.0 - 36.0 10/02/2017 [facility] HEMATOLOGY MPV 7.0 fL 7.4 - 10.4 10/02/2017 [facility] HEMATOLOGY WBC 9.9 K/CMM 3.7 - 10.4 10/02/2017 [facility] HEMATOLOGY RBC 5.27 M/CMM 4.20 - 5.40 10/02/2017 [facility] HEMATOLOGY Hgb 13.2 g/dL 12.0 - 16.0 10/02/2017 [facility] HEMATOLOGY Hct 41.2 % 36.0 - 48.0 10/02/2017 [facility] HEMATOLOGY MCH 25.1 pg 27.0 - 31.0 10/02/2017 [facility] HEMATOLOGY MCV 78.2 fL 80.0 - 98.0 10/02/2017 [facility] HEMATOLOGY Basophils # 0.1 K/CMM 0.0 - 0.2 10/02/2017 [facility] HEMATOLOGY Monocytes # 0.5 K/CMM 0.0 - 0.8 10/02/2017 [facility] HEMATOLOGY Eosinophils # 0.6 K/CMM 0.0 - 0.5 10/02/2017 [facility] HEMATOLOGY Microcyte 1+ *ABN* (10/02/17 11:50 AM) None Seen 10/02/2017 [facility] HEMATOLOGY Segs 69.3 % 45.0 - 75.0 10/02/2017 [facility] HEMATOLOGY Eosinophils 6.0 % 0.0 - 4.0 10/02/2017 [facility] HEMATOLOGY Lymphocytes 18.5 % 20.0 - 40.0 10/02/2017 [facility] HEMATOLOGY Monocytes 5.4 % 2.0 - 12.0 10/02/2017 [facility] HEMATOLOGY Segs-Bands # 6.8 K/CMM 1.5 - 8.1 10/02/2017 [facility] HEMATOLOGY Basophils 0.8 % 0.0 - 1.0 10/02/2017 [facility] HEMATOLOGY Lymphocytes # 1.8 K/CMM 1.0 - 5.5 10/02/2017 [facility] HEMATOLOGY PTT 31.1 s 22.9 - 35.8 10/02/2017 [facility] HEMATOLOGY PT 12.2 s 12.0 - 14.7 10/02/2017 [facility] HEMATOLOGY INR 0.91 0.85 - 1.17 10/02/2017 [facility] Brain wo contrast MRI Brain wo contrast MRI MRI OF THE BRAIN DATE: 10/02/2017 at 11:32 AM. HISTORY: Left-sided weakness. TECHNIQUE: Axial MR imaging was performed utilizing FLAIR, diffusion, and susceptibility weighting. FINDINGS: There is no restricted diffusion to indicate acute infarction. The mclaughlin-white interfaces are well defined. There are no foci of signal abnormality within the brain substance. There are no mass lesions or extra-axial collections. Normal vascular flow voids are noted. IMPRESSION: 1. No acute intracranial abnormality, normal MRI of the brain. There is no acute hemorrhage or acute infarct. 10/02/2017 - - Read by: Presley Magallanes MD Dictated Date/time: 10/02/17 12:06 Electronically Signed by: Presley Magallanes MD 10/02/17 12:08 FINAL REPORT [facility] Brain/Neck Stroke perfusion CTA Brain/Neck Stroke perfusion CTA EXAM: CTA NECK EXAM: CTA BRAIN EXAM: CT PERFUSION BRAIN INDICATION: Weakness COMPARISON: Noncontrast CT brain of the same day TECHNIQUE: Rapid acquisition spiral images were obtained following the intravenous administration of 125 cc Visipaque. 3D MIP reconstructions were performed. Cerebral perfusion analysis using computed tomography with contrast administration, including post-processing of parametric maps with determination of cerebral blood flow (CBF), cerebral blood volume (CBV) and mean transit time (MTT). DISCUSSION: CTA BRAIN: No proximal occlusion, flow-limiting stenosis or aneurysm is identified intracranially. CTA NECK: No stenosis at the carotid bifurcations. No dissection. Vertebral arteries have a normal course and caliber in the neck. PERFUSION: No abnormalities in CBV, CBF or timing of perfusion. IMPRESSION: Unremarkable exam. All quantitative and qualitative assessments of carotid bifurcation and proximal internal carotid artery stenosis are made at referencing the distal internal carotid artery. 01/31/2015 - - Read by: Viktoria Velasquez MD Dictated Date/time: 01/31/15 23:26 Electronically Signed by: Viktoria Velasquez MD 01/31/15 23:34 FINAL REPORT [facility] Chest 1view DX Chest 1view DX EXAM: XR Chest 1view , DATE: Jan 31, 2015 10:38:00 PM INDICATION: Focal neurological deficit /See Clinic Indication . COMPARISON: None FINDINGS: A single portable semierect frontal chest radiograph is submitted for interpretation. Right IJ Port-A-Cath tip overlies the superior cavoatrial junction. Patchy opacities in the left mid and lower lung likely represent subsegmental atelectasis. No focal consolidation or pleural effusion or pneumothorax identified. The cardiomediastinal silhouette is within normal limits for portable technique. Visualized soft tissues and osseous structures show no acute abnormality. IMPRESSION: Patchy opacities in the left mid and lower lung likely represent subsegmental atelectasis. No acute intrathoracic radiographic abnormality is identified. 01/31/2015 - - Read by: Nicolas Humphrey Dictated Date/time: 01/31/15 23:21 Electronically Signed by: Nicolas Humphrey 01/31/15 23:22 FINAL REPORT [facility] Brain wo contrast CT Brain wo contrast CT EXAM: CT HEAD WITHOUT CONTRAST INDICATION: Weakness COMPARISON: None TECHNIQUE: Contiguous axial images of the brain are obtained from skull base to vertex without administration of intravenous contrast. DISCUSSION: There is no intracranial hemorrhage, space occupying mass or mass effect. No acute infarction. Ventricles are normal in size without midline shift. Polypoid changes in the right maxillary sinus. Mastoid air cells are clear. IMPRESSION: No acute intracranial abnormality. 01/31/2015 - - Read by: Viktoria Velasquez MD Dictated Date/time: 01/31/15 23:10 Electronically Signed by: Viktoria Velasquez MD 01/31/15 23:11 FINAL REPORT [facility] Vital Signs Vital Sign Value Date Comments Source Diastolic (mm Hg) 78 09/07/2018 [facility] Systolic (mm Hg) 140 09/07/2018 [facility] Height 68 09/07/2018 [facility] Heart Rate 62 09/07/2018 [facility] Weight 290.25 09/07/2018 [facility] Diastolic (mm Hg) 88 07/31/2018 [facility] Systolic (mm Hg) 139 07/31/2018 [facility] Height 68 07/31/2018 [facility] Heart Rate 92 07/31/2018 [facility] Weight 288.38 07/31/2018 [facility] Diastolic (mm Hg) 83 07/04/2018 [facility] Systolic (mm Hg) 146 07/04/2018 [facility] Height 68 07/04/2018 [facility] Heart Rate 111 07/04/2018 [facility] Weight 293.80 07/04/2018 [facility] Diastolic (mm Hg) 83 05/16/2018 [facility] Systolic (mm Hg) 126 05/16/2018 [facility] Height 68 05/16/2018 [facility] Heart Rate 80 05/16/2018 [facility] Weight 287.44 05/16/2018 [facility] Diastolic (mm Hg) 87 03/23/2018 [facility] Systolic (mm Hg) 145 03/23/2018 [facility] Height 68 03/23/2018 [facility] Heart Rate 80 03/23/2018 [facility] Weight 292 03/23/2018 [facility] Diastolic (mm Hg) 83 01/26/2018 [facility] Systolic (mm Hg) 119 01/26/2018 [facility] Height 68 01/26/2018 [facility] Heart Rate 111 01/26/2018 [facility] Weight 297 01/26/2018 [facility] Diastolic (mm Hg) 83 11/16/2017 [facility] Systolic (mm Hg) 116 11/16/2017 [facility] Height 68 11/16/2017 [facility] Heart Rate 114 11/16/2017 [facility] Weight 298.38 11/16/2017 [facility] Heart Rate 85 10/02/2017 [facility] Temperature Oral (F) 98.1 F 10/02/2017 [facility] Respitory Rate 16 10/02/2017 [facility] Systolic (mm Hg) 145 10/02/2017 [facility] Diastolic (mm Hg) 88 10/02/2017 [facility] Heart Rate 89 10/02/2017 [facility] Respitory Rate 18 10/02/2017 [facility] Systolic (mm Hg) 152 10/02/2017 [facility] Diastolic (mm Hg) 94 10/02/2017 [facility] Temperature Oral (F) 98.2 F 10/02/2017 [facility] Weight 113.636 10/02/2017 [facility] Height 162.56 cm 10/02/2017 [facility] BMI Calculated 43 10/02/2017 [facility] Diastolic (mm Hg) 84 09/12/2017 [facility] Systolic (mm Hg) 121 09/12/2017 [facility] Height 68 09/12/2017 [facility] Heart Rate 106 09/12/2017 [facility] Weight 292.40 09/12/2017 [facility] Encounters Location Location Details Encounter Type Encounter Number Reason For Visit Attending Provider ADM Date DC Date Status Source [facility] Patient Exp Problem - 47784 [id number] Anish Garcia MD 10/20/2016 [facility] Patient Exp Problem - 55537 [id number] Anish Garcia MD 11/18/2016 [facility] Patient Detailed - 05012 [id number] Artie Uriostegui MD 12/16/2016 [facility] Patient Detailed - 55392 [id number] Artie Uriostegui MD 01/06/2017 [facility] Patient Exp Problem - 59555 [id number] Artie Uriostegui MD 02/06/2017 [facility] Patient Exp Problem - 88549 [id number] Artie Uriostegui MD 03/29/2017 [facility] Patient Exp Problem - 56420 [id number] Artie Uriostegui MD 05/23/2017 [facility] Patient Detailed - 19732 [id number] Artie Uriostegui MD 07/20/2017 [facility] Patient Detailed - 74890 [id number] Artie Uriostegui MD 09/12/2017 [facility] [id number] Inge Raines 10/02/2017 10/02/2017 [facility] Patient Detailed - 23278 [id number] Artie Uriostegui MD 11/16/2017 [facility] Patient Detailed - 51345 [id number] Artie Uriostegui MD 01/26/2018 [facility] Patient Detailed - 87700 [id number] Artie Uriostegui MD 03/23/2018 [facility] Patient Exp Problem - 36333 [id number] Artie Uriostegui MD 05/16/2018 [facility] Patient Exp Problem - 67979 [id number] Artie Uriostegui MD 07/04/2018 [facility] Patient Exp Problem - 09971 [id number] Artie Uriostegui MD 07/31/2018 [facility] Patient Detailed - 73446 [id number] Artie Uriostegui MD 09/07/2018 [facility] Procedures Procedure Code Date Perfomer Comments Source Diagnostic evaluation (no medical) - 20748 [id number] 08/01/2018 [facility] Diagnostic evaluation with medical - 63069 13868 09/29/2016 Jose QUINN [facility] Abdominal hysterectomy [id number] [facility] Appendectomy [id number] [facility] Both feet<sup>1</sup> [id number] broken [facility] Cannulation of Portacath [id number] [facility] Cataract surgery [id number] [facility] section [id number] [facility] Cholecystectomy [id number] [facility] Hysterectomy [id number] [facility] Sleeve resection of stomach [id number] [facility] Stomach operation<sup>2</sup> [id number] stomach sleeves [facility]
--- OUTSIDE RECORDS SUMMARY | 2018-11-13 05:39 | XMS REPORT | Clinical Summary ---
Author Author MARY [facility] Address Unknown Phone Unavailable Care Team Providers Care Program Therapist Name Role Phone PCP Unavailable Allergies Comments Active Allergy Reactions Severity Noted Date Fluticasone Shortness Of High 08/19/2013 Propion-Salmeterol Breath, Rash Muscle spasms Amoxicillin-Pot Rash, Other High 08/19/2013 Clavulanate (See Comments) Adhesive Tape 11/05/2014 [facility] [employer], 07/26/2018 Miscellaneous Ondansetron Hcl (Pf) Nausea And High 08/19/2013 Vomiting, Rash Medications End Date Status Medication Sig Dispensed Refills Start Date Active clonazePAM (KLONOPIN) 2 Take 3 mg by 0 MG tablet mouth 2 (two) times daily as needed. Active lamoTRIgine (LAMICTAL) Take 200 mg 0 200 MG tablet by mouth nightly . Active ARIPiprazole (ABILIFY) 5 Take 10 mg by 0 MG tablet mouth nightly . Active zolpidem (AMBIEN) 10 mg Take 10 mg by 0 tablet mouth every night as needed. Active desvenlafaxine succinate Take 200 mg 0 (PRISTIQ) 100 MG 24 hr by mouth tablet nightly . Active traZODone (DESYREL) 100 Take 200 mg 0 MG tablet by mouth nightly. Active cholecalciferol, vitamin Take 1 tablet 30 each 3 D3, 2,000 unit Tab (2,000 Units 8 total) by mouth daily. Active doxepin (SINEQUAN) 10 MG Take 10 mg by 0 capsule mouth nightly. Active HYDROcodone-acetaminophen Take 1 tablet 0 (NORCO 10-325) 10-325 mg by mouth per tablet every 6 (six) hours as needed for Pain. 07/21/2018 Discontinued pantoprazole (PROTONIX) Take 40 mg by 0 40 MG tablet mouth 2 (two) times daily. 06/30/2018 sucralfate (CARAFATE) 1 Take 1 tablet 120 tablet 2 gram tablet (1 g total) 8 by mouth 4 (four) times daily before meals and nightly. 07/29/2018 calcium carbonate (TUMS) Take 2 120 tablet 1 500 mg chewable tablet tablets 8 (1,000 mg total) by mouth 2 (two) times daily. 07/21/2018 Discontinued pantoprazole (PROTONIX) Take 1 tablet 60 tablet 1 40 MG tablet (40 mg total) 9 by mouth 2 (two) times daily before meals for 60 days. 07/28/2018 promethazine (PHENERGAN) Take 1 tablet 30 tablet 0 12.5 MG tablet (12.5 mg 9 total) by mouth every 6 (six) hours as needed for up to 7 days. 10/19/2018 propranolol (INDERAL) 10 Take 1 tablet 60 tablet 2 MG tablet (10 mg total) 9 by mouth 2 (two) times daily for 90 days. 09/19/2018 pantoprazole (PROTONIX) Take 1 tablet 60 tablet 1 40 MG tablet (40 mg total) 9 by mouth 2 (two) times daily before meals for 60 days. 08/04/2018 Discontinued esomeprazole (NEXIUM) 40 Take 40 mg by 0 MG capsule mouth 2 (two) times daily. 08/04/2018 Discontinued morphine (MS CONTIN) 60 Take 60 mg by 0 MG 12 hr tablet mouth 3 (three) times daily. 08/04/2018 Discontinued meloxicam (MOBIC) 15 MG Take 15 mg by 0 tablet mouth daily. 08/04/2018 Discontinued nystatin (MYCOSTATIN) Apply 15 g 0 100,000 unit/gram powder topically 2 9 (two) times daily for 7 days To redness and irritation in abdominal skin folds. Active Problems Problem Noted Date Hemiplegic migraine with status migrainosus, not intractable 08/02/2018 Chest pain 08/29/2017 Hemiplegic migraine, intractable 07/21/2017 Left-sided weakness 07/20/2017 Nausea & vomiting 08/20/2013 Depression Anxiety Resolved Problems Problem Noted Date Resolved Date Intractable nausea and vomiting 07/17/2018 07/26/2018 Leukocytosis 08/29/2017 07/26/2018 Migraine 08/05/2017 07/26/2018 Primary hyperparathyroidism 07/24/2017 07/26/2018 Bipolar disorder 07/23/2017 07/26/2018 Acute cystitis without hematuria 06/27/2017 07/26/2018 Hypercalcemia 06/27/2017 07/26/2018 Migraine with status migrainosus 06/23/2017 07/26/2018 Abdominal pain 08/20/2013 07/26/2018 Abdominal pain, right lower quadrant 08/20/2013 07/26/2018 Encounters Care Team Description Date Type Specialty Price Hopkins MD Brann, MD Diana Weston Khannan K., MD Hemiplegic migraine with status migrainosus, not intractable (Primary Dx); Left-sided weakness; Left sided chest pain; History of hypertension; Morbid obesity (HCC); Nausea and vomiting, intractability of vomiting not specified, unspecified vomiting type; Recurrent major depressive disorder, remission status unspecified (HCC) 08/02/2018 [facility] General Internal Medicine - Encounter 08/04/2018 08/02/2018 [facility] Only General Internal Medicine 08/02/2018 Travel Hilda Verma MD Brann, Christopher Scott, MD Vernon, Kimberly Ann, MD Anxiety; Other chest pain; Recurrent major depressive disorder, remission status unspecified (HCC); Intractable hemiplegic migraine without status migrainosus; Left-sided weakness; Hypokalemia; AALIYAH (obstructive sleep apnea) 07/26/2018 Hospital Cardiology - Encounter 07/27/2018 John Reddy MD 07/19/2018 Anesthesia Gastroenterology [facility] Maikol Benitez MD UPPER ENDOSCOPY,BIOPSY 07/19/2018 Surgery Gastroenterology Luis Felipe Ford MD [place], Narendra, MD Epigastric pain (Primary Dx); Intractable vomiting with nausea, unspecified vomiting type; Nausea and vomiting, intractability of vomiting not specified, unspecified vomiting type; Acute cystitis without hematuria; Intractable hemiplegic migraine with status migrainosus; Intractable migraine without aura and with status migrainosus; Left hemiparesis (HCC) 07/17/2018 [facility] Cardiology - Encounter 07/21/2018 07/17/2018 Travel after 11/12/2017 Social History Date Tobacco Use Types Packs/Day Years Used Never Smoker Smokeless Tobacco: Never Used Alcohol Use Drinks/Week oz/Week Comments No Sex Assigned at Date Recorded Not on file Industry Job Start Date Occupation Not on file Not on file Not on file Travel End Travel History Travel Start No recent travel history available. Last Filed Vital Signs Time Taken Vital Sign Reading 08/04/2018 3:29 PM CDT Blood Pressure 126/60 08/04/2018 3:29 PM CDT Pulse 80 08/04/2018 3:29 PM CDT Temperature 36.1 C (96.9 F) 08/04/2018 3:29 PM CDT Respiratory Rate 18 08/04/2018 3:29 PM CDT Oxygen Saturation 92% 07/27/2018 9:00 AM [employer] Inhaled Oxygen 21% Concentration 08/03/2018 2:04 AM CDT Weight 131.2 kg (289 lb 3.2 oz) 08/03/2018 2:04 AM CDT Height 170.2 cm (5' 7") 08/03/2018 2:04 AM CDT Body Mass Index 45.3 Plan of Treatment Not on file Procedures Comments Procedure Name Priority Date/Time Associated Diagnosis RHYTHM STRIP - SCAN 08/20/2018 10:40 AM CDT REPORT OF PROCEDURE - 08/07/2018 ENDOSCOPY SCAN 12:30 PM CDT RHYTHM STRIP - SCAN 08/07/2018 11:50 AM CDT ECHOCARDIOGRAM REPORT - 08/03/2018 SCAN 9:11 PM CDT 2D ECHO W/ DOPPLER Routine 08/03/2018 (CW/PW/COLOR) 12:18 PM CDT CBC W/PLT COUNT & AUTO Routine 08/03/2018 DIFFERENTIAL 6:03 AM CDT TROPONIN I Routine 08/03/2018 6:03 AM CDT COMPREHENSIVE METABOLIC Routine 08/03/2018 PANEL 6:03 AM CDT CBC W/PLT COUNT & AUTO Routine 08/03/2018 DIFFERENTIAL 6:03 AM CDT TROPONIN I Routine 08/03/2018 12:55 AM CDT URINALYSIS W/ REFLEX STAT 08/02/2018 URINE CULTURE 7:45 PM CDT URINE CULTURE STAT 08/02/2018 7:45 PM CDT XR CHEST 1 VIEW STAT 08/02/2018 PORTABLE/BEDSIDE 7:33 PM CDT CBC W/PLT COUNT & AUTO STAT 08/02/2018 DIFFERENTIAL 6:39 PM CDT MAGNESIUM STAT 08/02/2018 6:39 PM CDT B-TYPE NATRIURETIC FACTOR STAT 08/02/2018 (BNP) 6:39 PM CDT TROPONIN I STAT 08/02/2018 6:39 PM CDT PT/APTT STAT 08/02/2018 6:39 PM CDT BASIC METABOLIC PANEL (7) STAT 08/02/2018 6:39 PM CDT CBC W/PLT COUNT & AUTO STAT 08/02/2018 DIFFERENTIAL 6:39 PM CDT ED ECG INTERPRETATION Routine 08/02/2018 5:[address] BRAIN/STROKE TEST STAT 08/02/2018 DESIGN 5:40 PM CDT ECG 12-LEAD Routine 08/02/2018 5:25 PM CDT RHYTHM STRIP - SCAN 07/30/2018 2:11 PM CDT REPORT OF PROCEDURE - 07/30/2018 ENDOSCOPY SCAN 2:11 PM CDT CBC W/PLT COUNT & AUTO Routine 07/27/2018 DIFFERENTIAL 5:34 AM [employer] CBC W/PLT COUNT & AUTO Routine 07/27/2018 DIFFERENTIAL 5:34 AM [employer] MAGNESIUM Routine 07/27/2018 5:34 AM [employer] PHOSPHORUS Routine 07/27/2018 5:34 AM [employer] HEPATIC FUNCTION PANEL Routine 07/27/2018 5:34 AM [employer] BASIC METABOLIC PANEL (7) Routine 07/27/2018 5:34 AM [employer] CREATINE KINASE (CK) Routine 07/26/2018 12:09 PM [employer] TROPONIN I Routine 07/26/2018 12:09 PM [employer] ECG 12-LEAD Routine 07/26/2018 11:05 AM [employer] CBC W/PLT COUNT & AUTO Routine 07/26/2018 DIFFERENTIAL 4:20 AM [employer] TSH/FREE T4 IF INDICATED Routine 07/26/2018 4:20 AM [employer] C-REACTIVE PROTEIN Routine 07/26/2018 4:20 AM [employer]TE[employer]CE [employer]IC CREATINE KINASE (CK) Routine 07/26/2018 4:20 AM [employer]TENA[employer]CE MECH[employer]IC TROPONIN I Routine 07/26/2018 4:20 AM [employer]CE MECH[employer]IC CBC W/PLT COUNT & AUTO Routine 07/26/2018 DIFFERENTIAL 4:20 AM [employer]IC MAGNESIUM Routine 07/26/2018 4:20 AM [employer]IC PHOSPHORUS Routine 07/26/2018 4:20 AM [employer]TENA[employer]CE MECH[employer]IC HEPATIC FUNCTION PANEL Routine 07/26/2018 4:20 AM [employer]CE ME[employer]IC BASIC METABOLIC PANEL (7) Routine 07/26/2018 4:20 AM [employer]IC RHYTHM STRIP - SCAN 07/24/2018 2:10 PM [employer] POCT-GLUCOSE METER Routine 07/21/2018 7:20 AM [employer] CBC W/PLT COUNT & AUTO Routine 07/21/2018 DIFFERENTIAL 4:29 AM [employer]CE [employer]IC BASIC METABOLIC PANEL (7) Routine 07/21/2018 4:29 AM [employer]TE[employer]NCE ME[employer]IC CBC W/PLT COUNT & AUTO Routine 07/21/2018 DIFFERENTIAL 4:29 AM [employer] POCT-GLUCOSE METER Routine 07/20/2018 9:13 PM [employer]IC CBC W/PLT COUNT & AUTO Routine 07/20/2018 DIFFERENTIAL 4:37 AM [employer]TENANCE MECH[employer]IC BASIC METABOLIC PANEL (7) Routine 07/20/2018 4:37 AM [employer]TENANCE MECH[employer]IC CBC W/PLT COUNT & AUTO Routine 07/20/2018 DIFFERENTIAL 4:37 AM [employer] MAINTE[employer] CT BRAIN WITHOUT IV STAT 07/19/2018 CONTRAST 10:48 PM [employer] POCT-GLUCOSE METER Routine 07/19/2018 10:25 PM [employer]TENA[employer]CE [employer]IC REPORT OF PROCEDURE - 07/19/2018 ENDOSCOPY URL 10:43 AM [employer] TISSUE EXAM AP Routine 07/19/2018 10:08 AM [employer] UPPER 07/19/2018 Nausea and vomiting, ENDOSCOPY,DILATATION 9:00 AM [employer] intractability of vomiting not specified, unspecified vomiting type UPPER ENDOSCOPY,BIOPSY 07/19/2018 Nausea and vomiting, 9:00 AM [employer] intractability of vomiting not specified, unspecified vomiting type CBC W/PLT COUNT & AUTO Routine 07/19/2018 DIFFERENTIAL 4:08 AM [employer]TE[employer]CE [employer]IC BASIC METABOLIC PANEL (7) Routine 07/19/2018 4:08 AM [employer] ME[employer]IC CBC W/PLT COUNT & AUTO Routine 07/19/2018 DIFFERENTIAL 4:08 AM [employer] C. DIFFICILE GDH TOXIN Routine 07/18/2018 12:23 PM [employer] CBC W/PLT COUNT & AUTO Routine 07/18/2018 DIFFERENTIAL 6:39 AM [employer]IC HEPATIC FUNCTION PANEL Routine 07/18/2018 6:39 AM [employer]CE [employer]IC LIPASE Routine 07/18/2018 6:39 AM [employer]CE MECH[employer]IC CBC W/PLT COUNT & AUTO Routine 07/18/2018 DIFFERENTIAL 6:39 AM [employer] MAGNESIUM Routine 07/18/2018 4:27 AM [employer] PHOSPHORUS Routine 07/18/2018 4:27 AM [employer]TENANCE MECH[employer]IC BASIC METABOLIC PANEL (7) Routine 07/18/2018 4:27 AM [employer]TE[employer]CE [employer]IC after 11/12/2017 Results * RHYTHM STRIP - SCAN (08/20/2018 10:40 AM CDT) Only the most recent of 4 results within the time period is included. Narrative Performed At * EKG-SCANNED (08/07/2018 12:30 PM CDT) Only the most recent of 2 results within the time period is included. Narrative Performed At * ECHOCARDIOGRAM REPORT - SCAN (08/03/2018 9:11 PM CDT) Narrative Performed At * 2D Echo W/Doppler(CW/PW/Color) (08/03/2018 12:18 PM CDT) Ejection Fraction [facility] Specimen Narrative Performed At Transthoracic Echocardiography Report (TTE) [facility] Demographics [facility] Patient Name GALLITO ROBERTS Date of Study 08/03/2018 JOYCELYN [id number] Female Visit Number [id number] Room Number 714 Number Date of Birth1970Referring Physician Polly Muller S Age48 year(s)Log Loader Helper Michael Yen [facility] AnalystIzolda Ashely Stark Physicia fady QUINN Procedure Type of Study TTE procedure:2DECHO DOPPLER W/SALINE (Routine) Indications:Shortness of breath. Clinical History HGB 12 HCT 40.7 % Anemia Anxiety Atrial Fibrillation/flutter Coronary Artery Disease Hypertension Stroke/TIA Contrast Medium: Bubble Study. Height: 67 inches Weight: 131.09 kg (289 lbs) BSA: 2.36 m^2 BMI: 45.26 kg/m^2 HR: 85 bpm BP: 106/53 mmHg Summary Global LV systolic function lower limits of normal . Mild concentric LV hypertrophy. Grade 1 diastolic dysfunction (impaired relaxation and low-normal LA pressure). LA size is normal (16-34 ml/m2) . IV saline contrast injection was negative for a PFO (patent foramen ovale) at rest and post Valsalva . Unable to estimate peak systolic PA pressure; inadequate TR velocity signal. The estimated RA pressure by IVC dynamics indeterminate . Previous Study No prior studies available for comparison. Signature Findings Rhythm/BPRegular sinus rhythm during the exam. Left Ventricle The left ventricle is chamber size (by PSLAX dimension) is normal (female - LVIDd 3.8-5.2cm) . Mild concentric LV hypertrophy. All of the LV segments have low normal contractility . Global LV systolic function lower limits of normal . LVEF by Flores's method of disk assessment is lower limits of normal (50-55%) . The LVEF was measured using Flores's bi-plane method of disk . Normal (cardiac index 2-3 L/min/m2) cardiac output state at rest is noted. Grade 1 diastolic dysfunction (impaired relaxation and low-normal LA pressure). Left AtriumLA size is normal (16-34 ml/m2) . Right VentricleThe right ventricular chamber size and systolic function are within normal limits. Right Atrium RA cavity size is normal . Atrial SeptumIV saline contrast injection was negative for a PFO (patent foramen ovale) at rest and post Valsalva . Aortic Valve Mild AoV cusp thickening. AoV cusp mobility is normal . No evidence of aortic regurgitation. Mitral Valve Mild mitral annular calcification. No evidence of mitral regurgitation. Tricuspid ValveTrace TR. Unable to estimate peak systolic PA pressure; inadequate TR velocity signal. Pulmonic Valve Normal PV structure and function. AortaProximal ascending aorta size is normal . Aortic root size (SInus of Valsalva diameter) is normal . PericardiumNo significant pericardial effusion is visualized. IVC/SVC/PA/PV/PleuralThe right upper pulmonary vein (RUPV) is normal . The estimated RA pressure by IVC dynamics indeterminate . The inferior vena cava is not visualized. Chambers/Structures Left Atrium LA Volume: 53.18 ml LA Area: 17.48 cm^2 LA Vol. Index: 23 ml/m^2 Left Ventricle LVIDd: 4.84 cm LV Septum Diastolic: 1.18 cm LV PW Diastolic: 1.25 cm LVEDV Flores's:114.67 mlLV Length: 8.59 cm LVESV Flores's:53.81 ml LVEF Flores's: 53.1 % LVEDVI: 49 ml/m^2 LVESVI: 23 ml/m^2 LVOT Diameter: 2.09 cm Right Ventricle TAPSE: 1.57 cm Aorta Ao Root S of Mara.: 2.68 cmAscending Aorta: 2.69 cm Doppler/Quantitative Measurements Mitral Valve MV Peak E-Wave: 0.71 m/sMV Peak A-Wave: 0.77 m/s E/A Ratio: 0.92 Peak Gradient: 2.03 mmHg Deceleration Time: 235.9 msec MV Jose Armando. Peak: Tissue Doppler E' Lateral Velocity: 0.13 m/s E/E': 5.47 Aortic Valve Peak Velocity: 1.4 m/s Mean Velocity: 1 m/s Peak Gradient: 7.88 mmHg Mean Gradient: 4.6 mmHg AV Area (continuity): 2.4 cm^2 AV VTI: 27.6 cm AV DVI: 0.7 LVOT Peak Velocity: 1.02 m/s Peak Gradient: 4.2 mmHg Mean Velocity: 0.74 m/s Mean Gradient: 2.49 mmHg LVOT Diameter: 2.09 cmLVOT VTI: 19.32 cm LVOT Area: 3.43 cm^2LVOT SV:66.25 ml LVOT CO: 5.63 l/min LVOT CI: 2.39 l/min/m^2 Procedure Note Interface, External Ris In - 08/03/2018 4:13 PM CDT Transthoracic Echocardiography Report (TTE) Demographics Patient Name GALLITO ROBERTS Date of Study 08/03/2018 JOYCELYN Gender Female Visit Number [id number] Race Unknown Room Number 714 Number Date of 1970 Referring Physician Polly Flores Age 48 year(s) Log Loader Helper Michael Yen [facility] Power Plant Assistant Mani Matson Interpreting Physician CHEYENNE Thayer Procedure Type of Study TTE procedure:2DECHO DOPPLER W/SALINE (Routine) Indications:Shortness of breath. Clinical History HGB 12 HCT 40.7 % Anemia Anxiety Atrial Fibrillation/flutter Coronary Artery Disease Hypertension Stroke/TIA Contrast Medium: Bubble Study. Height: 67 inches Weight: 131.09 kg (289 lbs) BSA: 2.36 m^2 BMI: 45.26 kg/m^2 HR: 85 bpm BP: 106/53 mmHg Summary Global LV systolic function lower limits of normal . Mild concentric LV hypertrophy. Grade 1 diastolic dysfunction (impaired relaxation and low-normal LA pressure). LA size is normal (16-34 ml/m2) . IV saline contrast injection was negative for a PFO (patent foramen ovale) at rest and post Valsalva . Unable to estimate peak systolic PA pressure; inadequate TR velocity signal. The estimated RA pressure by IVC dynamics indeterminate . Previous Study No prior studies available for comparison. Signature Findings Rhythm/BP Regular sinus rhythm during the exam. Left Ventricle The left ventricle is chamber size (by PSLAX dimension) is normal (female - LVIDd 3.8-5.2cm) . Mild concentric LV hypertrophy. All of the LV segments have low normal contractility . Global LV systolic function lower limits of normal . LVEF by Flores's method of disk assessment is lower limits of normal (50-55%) . The LVEF was measured using Flores's bi-plane method of disk . Normal (cardiac index 2-3 L/min/m2) cardiac output state at rest is noted. Grade 1 diastolic dysfunction (impaired relaxation and low-normal LA pressure). Left Atrium LA size is normal (16-34 ml/m2) . Right Ventricle The right ventricular chamber size and systolic function are within normal limits. Right Atrium RA cavity size is normal . Atrial Septum IV saline contrast injection was negative for a PFO (patent foramen ovale) at rest and post Valsalva . Aortic Valve Mild AoV cusp thickening. AoV cusp mobility is normal . No evidence of aortic regurgitation. Mitral Valve Mild mitral annular calcification. No evidence of mitral regurgitation. Tricuspid Valve Trace TR. Unable to estimate peak systolic PA pressure; inadequate TR velocity signal. Pulmonic Valve Normal PV structure and function. Aorta Proximal ascending aorta size is normal . Aortic root size (SInus of Valsalva diameter) is normal . Pericardium No significant pericardial effusion is visualized. IVC/SVC/PA/PV/Pleural The right upper pulmonary vein (RUPV) is normal . The estimated RA pressure by IVC dynamics indeterminate . The inferior vena cava is not visualized. Chambers/Structures Left Atrium LA Volume: 53.18 ml LA Area: 17.48 cm^2 LA Vol. Index: 23 ml/m^2 Left Ventricle LVIDd: 4.84 cm LV Septum Diastolic: 1.18 cm LV PW Diastolic: 1.25 cm LVEDV Flores's:114.67 ml LV Length: 8.59 cm LVESV Flores's:53.81 ml LVEF Flores's: 53.1 % LVEDVI: 49 ml/m^2 LVESVI: 23 ml/m^2 LVOT Diameter: 2.09 cm Right Ventricle TAPSE: 1.57 cm Aorta Ao Root S of Mara.: 2.68 cm Ascending Aorta: 2.69 cm Doppler/Quantitative Measurements Mitral Valve MV Peak E-Wave: 0.71 m/s MV Peak A-Wave: 0.77 m/s E/A Ratio: 0.92 Peak Gradient: 2.03 mmHg Deceleration Time: 235.9 msec MV Jose Armando. Peak: Tissue Doppler E' Lateral Velocity: 0.13 m/s E/E': 5.47 Aortic Valve Peak Velocity: 1.4 m/s Mean Velocity: 1 m/s Peak Gradient: 7.88 mmHg Mean Gradient: 4.6 mmHg AV Area (continuity): 2.4 cm^2 AV VTI: 27.6 cm AV DVI: 0.7 LVOT Peak Velocity: 1.02 m/s Peak Gradient: 4.2 mmHg Mean Velocity: 0.74 m/s Mean Gradient: 2.49 mmHg LVOT Diameter: 2.09 cm LVOT VTI: 19.32 cm LVOT Area: 3.43 cm^2 LVOT SV:66.25 ml LVOT CO: 5.63 l/min LVOT CI: 2.39 l/min/m^2 Performing Organization Address City/State/Zipcode Phone Number [facility] * CBC with platelet count + automated diff (08/03/2018 6:03 AM CDT) Only the most recent of 8 results within the time period is included. WBC 6.7 3.5 - 10.5 K/L [facility] RBC 4.55 3.93 - 5.22 M/L [facility] Hemoglobin 12.0 11.2 - 15.7 GM/DL [facility] Hematocrit 40.7 34.1 - 44.9 % [facility] MCV 89.5 79.4 - 94.8 fL [facility] MCH 26.4 25.6 - 32.2 pg [facility] MCHC 29.5 (L) 32.2 - 35.5 GM/DL [facility] RDW 14.1 11.7 - 14.4 % [facility] Platelets 277 150 - 450 K/CU MM [facility] MPV 8.9 (L) 9.4 - 12.3 fL [facility] nRBC 0 0 - 0 /100 WBC [facility] % Neutros 51 % [facility] % Lymphs 34 % [facility] % Monos 11 % [facility] % Eos 5 % [facility] % Baso 0 % [facility] # Neutros 3.40 1.56 - 6.13 K/L [facility] # Lymphs 2.26 1.18 - 3.74 K/L [facility] # Monos 0.71 (H) 0.24 - 0.36 K/L [facility] # Eos 0.30 0.04 - 0.36 K/L [facility] # Baso 0.02 0.01 - 0.08 K/L [facility] Immature 0 0 - 1 % [facility] Granulocytes-[facility] Specimen Blood Performing Organization Address City/[facility] [place] [address] [facility] * Troponin I (08/03/2018 6:03 AM CDT) Only the most recent of 5 results within the time period is included. Troponin I <0.01 0.00 - 0.03 ng/mL [facility] Specimen Blood Narrative Performed At Troponin I (TnI) levels must be interpreted in the context of the presenting [facility] symptoms and the clinical findings. Elevated TnI levels indicate myocardial [facility] damage, but are not specific for ischemic heart disease. Elevated TnI levels are seen in patients with other cardiac conditions (including myocarditis and congestive heart failure), and slight TnI elevations occur in patients with other conditions, including sepsis, renal failure, acidosis, acute neurological disease, and persistent tachyarrhythmia. Performing Organization Address City/State/[facility] Centercode Phone Number [address] [address] [facility] * Comprehensive metabolic panel (08/03/2018 6:03 AM CDT) Protein, Total 5.6 (L) 6.0 - 8.3 gm/dL [facility] Albumin 3.2 (L) 3.5 - 5.0 g/dL [facility] Alkaline Phosphatase 77 40 - 150 U/L [facility] Total Bilirubin 0.4 0.2 - 1.2 mg/dL [facility] Sodium 141 136 - 145 meq/L [facility] Potassium 3.7 3.5 - 5.1 meq/L [facility] Chloride 106 98 - 107 meq/L [facility] CO2 27 22 - 29 meq/L [facility] BUN 8 7 - 21 mg/dL [facility] Creatinine 0.79 0.57 - 1.25 mg/dL [facility] Glucose 91 70 - 105 mg/dL [facility] Calcium 8.3 (L) 8.4 - 10.2 mg/dL [facility] AST 15 5 - 34 U/L [facility] ALT 17 6 - 55 U/L [facility] EGFR 78Comment: ESTIMATED GFR IS mL/min/1.[address] [facility] NOT ACCURATE CREATININE [facility] IN PREDICTING GLOMERULAR FILTRATION RATE. ESTIMATED GFR IS NOT APPLICABLE FOR DIALYSIS PATIENTS. Specimen Blood Performing Organization Address City/State/Zipcode Phone Number [facility] [address] [place] [address] MED[facility]ENTER * Urinalysis w/Microscopic + Reflex to Culture (08/02/2018 7:45 PM CDT) Color, UA Brown [facility] Clarity, UA Hazy [facility] Specific Carver, UA 1.024 1.001 - 1.035 [facility] pH, UA 5.5 5.0 - 8.0 [facility] Protein, UA 50 mg/dL (A) Negative [facility] Glucose, UA Negative Negative [facility] Ketones, UA Negative Negative [facility] Bilirubin, UA Positive (A) Negative [facility] Blood, UA Negative Negative [facility] Nitrite, UA Positive (A) Negative [facility] Leukocytes, UA Small (A) Negative [facility] Urobilinogen, UA 4.0 (H) 0.2 - 1.0 mg/dL [facility] RBC, UA 2 /HPF [facility] WBC, UA 44 /HPF [facility] Bacteria, UA Rare [facility] Mucus Many [facility] Squam Epithel, UA 12 /HPF [facility] Hyaline Casts, UA 12 /LPF [facility] Specimen Source [facility] Specimen Urine Performing Organization Address City/[facility] Centercode Phone Number [place] [phone] * Urine culture (08/02/2018 7:45 PM CDT) Result See comment [facility] Specimen Urine Narrative Performed At <10,000 col/mL Gram Negative Rods [facility] >100,000 col/mL skin jayda [facility] Performing Organization Address [facility] [place] [address] [phone] * XR chest 1 view portable / bedside (08/02/2018 7:33 PM CDT) Specimen Narrative Performed At FINAL REPORT [facility] Clinical History: CHEST PAIN EXTREMITY WEAKNESS Comparison Study: July 25, 2017 Findings:The heart and lungs are within normal limits. A left Port-A-Cath is noted. The pleural spaces are clear.No significant bony or soft tissue abnormalities are seen. Impression: No active cardiopulmonary disease. Signed: Kelvin Lamas MD Report Verified Date/Time:08/02/2018 20:23:28 Reading Location: [facility] [id number] Consult Reading Room Procedure Note Interface, External Ris In - 08/02/2018 8:25 PM CDT FINAL REPORT Clinical History: CHEST PAIN EXTREMITY WEAKNESS Comparison Study: July 25, 2017 Findings: The heart and lungs are within normal limits. A left Port-A-Cath is noted. The pleural spaces are clear. No significant bony or soft tissue abnormalities are seen. Impression: No active cardiopulmonary disease. Signed: Kelvin Lamas MD Report Verified Date/Time: 08/02/2018 20:23:28 Reading Location: [facility] C013 Consult Reading Room Performing Organization Address City/State/Zipcode Phone Number [facility] * PT/aPTT (08/02/2018 6:39 PM CDT) Protime 13.0 11.7 - 14.7 seconds [facility] INR 1.0 <=5.9 [facility] PTT 141.8 (H) 22.5 - 36.0 seconds [facility] Specimen Blood Narrative Performed At RECOMMENDED COUMADIN/WARFARIN INR THERAPY RANGES [facility] STANDARD DOSE: 2.0 - 3.0 Includes: PROPHYLAXIS for venous thrombosis, [facility] systemic embolization; TREATMENT for venous thrombosis and/or pulmonary embolus. HIGH RISK: Target INR is 2.5-3.5 for patients with mechanical heart valves. Performing Organization Address City/[facility]/Zipcode Phone Number [facility] [address] [place] [address] MEDICAL CENTER * B-type Natriuretic Factor (BNP) (08/02/2018 6:39 PM CDT) BNP <10 0 - 100 pg/mL [facility] Specimen Blood Performing Organization Address City/[facility]/Zipcode Phone Number [facility] [address] [place], [place] [phone] [facility] * Magnesium (08/02/2018 6:39 PM CDT) Only the most recent of 4 results within the time period is included. Magnesium 2.1 1.6 - 2.6 mg/dL [facility] Specimen Blood Performing Organization Address City/[facility] Centercode Phone Number [facility] [address] [place] [address] [facility] * Basic Metabolic Panel (08/02/2018 6:39 PM CDT) Only the most recent of 7 results within the time period is included. Sodium 142 136 - 145 meq/L [facility] Potassium 3.6 3.5 - 5.1 meq/L [facility] Chloride 105 98 - 107 meq/L [facility] CO2 25 22 - 29 meq/L [facility] BUN 8 7 - 21 mg/dL [facility] Creatinine 0.96 0.57 - 1.25 mg/dL [facility] Glucose 104 70 - 105 mg/dL [facility] Calcium 9.1 8.4 - 10.2 mg/dL [facility] EGFR 63Comment: ESTIMATED GFR IS mL/min/1.[address] [facility] NOT ACCURATE CREATININE [facility] CLEARANCE IN PREDICTING GLOMERULAR FILTRATION RATE. ESTIMATED GFR IS NOT APPLICABLE FOR DIALYSIS PATIENTS. Specimen Blood Performing Organization Address City/[facility]/Zipcode Phone Number [facility] [address] [place] [address] [facility] * ECG/EKG Interpretation (08/02/2018 5:54 PM CDT) Narrative Performed At Price Hopkins MD 08/02/20187:59 PM ECG/EKG Interpretation Date/Time: 08/02/2018 7:02 PM Performed by: Price Hopkins MD Authorized by: Price Hopkins MD This ECG was compared with previous ECG(s).The ECG is interpreted as sinus tachycardia. Rate is tachycardic. Heart rate is [address] segments normal. T waves normal. Stokes is normal. Clinical Impression: non-specific ECGECG reviewed and does not meet STEMI criteria. Patient tolerance: Patient tolerated the procedure well with no immediate complications * CT brain/stroke protocol (08/02/2018 5:40 PM CDT) Specimen Narrative Performed At FINAL REPORT [facility] CT, BRAIN/STROKE PROTOCOL CLINICAL INDICATION:Neuro deficit(s), subacute r/o stroke COMPARISON: None TECHNIQUE:Noncontrast axial CT imaging of the brain and skull. DOSE REDUCTION: Dose modulation, iterative reconstruction, and/or weight-based adjustment of the mA/kV was utilized to reduce the radiation dose to as low as reasonably achievable. FINDINGS: No intracranial hemorrhage, midline shift or mass effect. Midline structures are normally developed. Mild chronic microvascular ischemic changes of the periventricular and subcortical white matter are present. No hydrocephalus. Atherosclerotic calcification of the intracranial internal carotid and vertebral arteries. Orbits are within normal limits. Prior bilateral lens surgery No obstructive paranasal sinus disease. IMPRESSION: No acute intracranial findings If there is persistent clinical concern for intracranial pathology, MR examination is recommended for further characterization. Signed: Eden Malone MD Report Verified Date/Time:08/02/2018 17:44:17 Reading Location: [facility] Radiology Reading Room Procedure Note Interface, External Ris In - 08/02/2018 5:46 PM CDT FINAL REPORT CT, BRAIN/STROKE PROTOCOL CLINICAL INDICATION: Neuro deficit(s), subacute r/o stroke COMPARISON: None TECHNIQUE: Noncontrast axial CT imaging of the brain and skull. DOSE REDUCTION: Dose modulation, iterative reconstruction, and/or weight-based adjustment of the mA/kV was utilized to reduce the radiation dose to as low as reasonably achievable. FINDINGS: No intracranial hemorrhage, midline shift or mass effect. Midline structures are normally developed. Mild chronic microvascular ischemic changes of the periventricular and subcortical white matter are present. No hydrocephalus. Atherosclerotic calcification of the intracranial internal carotid and vertebral arteries. Orbits are within normal limits. Prior bilateral lens surgery No obstructive paranasal sinus disease. IMPRESSION: No acute intracranial findings If there is persistent clinical concern for intracranial pathology, MR examination is recommended for further characterization. Signed: Eden Malone MD Report Verified Date/Time: 08/02/2018 17:44:17 Reading Location: [facility] Radiology Reading Room Performing Organization Address City/State/Zipcode Phone Number [facility] * ECG 12 lead (08/02/2018 5:25 PM CDT) Only the most recent of 2 results within the time period is included. Specimen Narrative Performed At Ventricular Rate 122 BPM [facility] Atrial Rate 122 BPM P-R Interval 158 ms QRS Duration 78 ms Q-T Interval 316 ms QTC Calculation(Bazett) 450 ms P Stokes 21 degrees R Stokes 14 degrees T Stokes 12 degrees Sinus tachycardia Minimal voltage criteria for LVH, may be normal variant Cannot rule out Anterior infarct , age undetermined Nonspecific T wave abnormality Abnormal ECG When compared with ECG of 26-JUL-2018 11:05, Vent. rate has increased BY48 BPM Non-specific change in ST segment in Anterior leads Nonspecific T wave abnormality now evident in Anterolateral leads Confirmed by MD RALPH YOCHAI ([id number]) on 08/03/2018 7:02:20 AM Procedure Note Interface, External Ris In - 08/03/2018 7:02 AM CDT Ventricular Rate 122 BPM Atrial Rate 122 BPM P-R Interval 158 ms QRS Duration 78 ms Q-T Interval 316 ms QTC Calculation(Bazett) 450 ms P Stokes 21 degrees R Stokes 14 degrees T Stokes 12 degrees Sinus tachycardia Minimal voltage criteria for LVH, may be normal variant Cannot rule out Anterior infarct , age undetermined Nonspecific T wave abnormality Abnormal ECG When compared with ECG of 26-JUL-2018 11:05, Vent. rate has increased BY 48 BPM Non-specific change in ST segment in Anterior leads Nonspecific T wave abnormality now evident in Anterolateral leads Confirmed by MD RALPH YOCHAI ([id number]) on 08/03/2018 7:02:20 AM Performing Organization Address City/State/Zipcode Phone Number [facility] * Phosphorus (07/27/2018 5:34 AM [employer] MAINTENANCE MECHANIC) Only the most recent of 3 results within the time period is included. Phosphorus 1.8 (L) 2.3 - 4.7 mg/dL [facility] Specimen Blood Performing Organization Address City/[facility] Centercode Phone Number [address] [address] [facility] * Hepatic function panel (07/27/2018 5:34 AM [employer] MAINTENANCE MECHANIC) Only the most recent of 3 results within the time period is included. Protein, Total 6.3 6.0 - 8.3 gm/dL [facility] Albumin 3.5 3.5 - 5.0 g/dL [facility] Total Bilirubin 0.2 0.2 - 1.2 mg/dL [facility] Bilirubin, Direct 0.1 0.1 - 0.5 mg/dL [facility] Alkaline Phosphatase 83 40 - 150 U/L [facility] AST 10 5 - 34 U/L [facility] ALT 12 6 - 55 U/L [facility] Specimen Blood Performing Organization Address City/[facility] Centercoor Phone Number [address] [address] [facility] * Creatine Kinase (CK) (07/26/2018 12:09 PM [employer] MAINTENANCE MECHANIC) Only the most recent of 2 results within the time period is included. Total CK 18 (L) 29 - 200 U/L [facility] Specimen Blood Performing Organization Address City/[facility] Centercode Phone Number [address] [address] [facility] * TSH/Free T4 If Indicated (07/26/2018 4:20 AM [employer] MAINTENANCE MECHANIC) TSH 2.69 0.35 - 4.94 uIU/mL [facility] Specimen Blood Performing Organization Address City/[facility] Centercode Phone Number [address] [address] [facility] * C-Reactive Protein (07/26/2018 4:20 AM [employer] MAINTENANCE MECHANIC) CRP 2.21 (H) 0.00 - 0.50 mg/dL [facility] Specimen Blood Performing Organization Address City/State/Zipcode Phone Number [facility] [address] [place] [address] [facility] * POC-Glucose meter (07/21/2018 7:20 AM [employer] MAINTENANCE MECHANIC) Only the most recent of 3 results within the time period is included. POC-Glucose Meter 150 (H)Comment: TESTED AT 70 - 110 mg/dL [facility] [address] [place] [id number] Specimen Blood Performing Organization Address City/[facility] Centercode Phone Number [facility] [address] [place], [place] [phone] [facility] * CT brain without IV contrast (07/19/2018 10:48 PM [employer] MAINTENANCE MECHANIC) Specimen Narrative Performed At FINAL REPORT [facility] CT, BRAIN, WITHOUT CONTRAST CLINICAL INDICATION:Focal neuro deficit, new, fixed or worsening, <6 hours COMPARISON: None TECHNIQUE:Noncontrast axial CT imaging of the brain and skull. DOSE REDUCTION: Dose modulation, iterative reconstruction, and/or weight-based adjustment of the mA/kV was utilized to reduce the radiation dose to as low as reasonably achievable. FINDINGS: No intracranial hemorrhage, midline shift or mass effect. Midline structures are normally developed. Mild chronic microvascular ischemic changes of the periventricular and subcortical white matter are present. No hydrocephalus. Orbits are within normal limits. Prior bilateral lens surgery. No obstructive paranasal sinus disease. Right maxillary sinus mucus retention cyst. Incidental note is made of hyperostosis interna frontalis. IMPRESSION: No acute intracranial findings If there is persistent clinical concern for intracranial pathology, MR examination is recommended for further characterization. Signed: Eden Malone MD Report Verified Date/Time:07/19/2018 22:59:48 Reading Location: [address] Neuro Reading Room Procedure Note Interface, External Ris In - 07/19/2018 11:01 PM [employer] MAINTENANCE MECHANIC FINAL REPORT CT, BRAIN, WITHOUT CONTRAST CLINICAL INDICATION: Focal neuro deficit, new, fixed or worsening, <6 hours COMPARISON: None TECHNIQUE: Noncontrast axial CT imaging of the brain and skull. DOSE REDUCTION: Dose modulation, iterative reconstruction, and/or weight-based adjustment of the mA/kV was utilized to reduce the radiation dose to as low as reasonably achievable. FINDINGS: No intracranial hemorrhage, midline shift or mass effect. Midline structures are normally developed. Mild chronic microvascular ischemic changes of the periventricular and subcortical white matter are present. No hydrocephalus. Orbits are within normal limits. Prior bilateral lens surgery. No obstructive paranasal sinus disease. Right maxillary sinus mucus retention cyst. Incidental note is made of hyperostosis interna frontalis. IMPRESSION: No acute intracranial findings If there is persistent clinical concern for intracranial pathology, MR examination is recommended for further characterization. Signed: Eden Malone MD Report Verified Date/Time: 07/19/2018 22:59:48 Reading Location: [address] Neuro Reading Room Performing Organization Address City/State/Zipcode Phone Number [facility] * REPORT OF PROCEDURE - ENDOSCOPY URL (07/19/2018 10:43 AM [employer] MAINTENANCE MECHANIC) Narrative Performed At * Tissue Exam (07/19/2018 10:08 AM [employer] MAINTENANCE MECHANIC) Case Report Surgical Pathology [facility] Report [facility] Case: [id number] Authorizing Provider:Maikol Benitez, Collected: 07/19/2018 1008 MD Ordering Location: [address] Received: 07/19/2018 1454 Service Pathologist: Berlin Venegas MD Specimens: A) - Duodenum, Bx, r/o Celiac B) - Biopsy, Gastric, Bx, r/o H Pylori C) - Biopsy, Mid-esophagus, Bx, R/o EOE DIAGNOSIS PART A DUODENAL BIOPSY: [facility] SMALL INTESTINAL MUCOSA WITH [facility] GASTRIC METAPLASIA. THE VILLOUS ARCHITECTURE IS PRESERVED. NO GRANULOMAS, ULCERATION, DYSPLASIA, OR INVASIVE CARCINOMA SEEN. SEE DIAGNOSTIC COMMENT. PART B GASTRIC BIOPSY: FOCALLY ACTIVE CHRONIC GASTRITIS. WARTHIN STARRY STAIN FOR HELICOBACTER IS NEGATIVE. PART C MID-ESOPHAGEAL BIOPSY: SQUAMOUS MUCOSA WITH MILD REACTIVE CHANGES. NEGATIVE FOR INCREASED EOSINOPHILS, DYSPLASIA, OR INVASIVE CARCINOMA. Signing Pathologist Direct Phone Line: [phone] COMMENT The finding of gastric [facility] metaplasia within the duodenal [facility] mucosa is consistent with peptic duodenitis in the appropriate clinical setting. CPT Code(s) 12036O4, 39855 [facility] CLINICAL HISTORY Nausea and vomiting, rule out [facility] celiac, rule out H. Pylori, [facility] rule out EOE SPECIMEN SOURCE A. Duodenum biopsy. B. Gastric [facility] biopsy. C. Mid esophagus [facility] biopsy GROSS DESCRIPTION Specimens are received in [facility] three containers of formalin [facility] all labeled with the patient's information. Specimen A: Labeled "duodenum biopsy" consists of multiple fragments of mcneill tissue ranging from less than 0.1 to 0.3 cm, submitted entirely in A1. Specimen B: Labeled "gastric biopsy" consists of multiple fragments of mcneill tissue ranging from 0.1 to 0.3 cm, submitted entirely in B1. Specimen C: Labeled "mid esophagus" consists of three fragments of off-white tissue ranging from less than 0.1 and 0.6 cm, submitted entirely in C1. CG/ew MICROSCOPIC DESCRIPTION PERFORMED. [facility] SPECIAL STUDIES The interpretation of this [facility] case included the use of [facility] immunohistochemistry or special stains. BLOCK B1- WARTHIN STARRY Immunohistochemistry technical testing was performed at [facility], Pathology Laboratory where it was developed and its performance characteristics were determined. It has not been cleared or approved by the U.S. Food and Drug Administration. The FDA has determined that such clearance or approval is not necessary. The test is used for clinical purposes. It should not be regarded as investigational or for research. This laboratory is certified under the Clinical Laboratory Improvement Amendments of 1988 (CLIA-88) as qualified to perform high complexity clinical laboratory testing. Specimen Tissue Tissue - Gastric biopsy sample (specimen) Tissue - Biopsy, Mid-esophagus Performing Organization Address City/State/Zipcode Phone Number [facility] [address] [place] [address] [phone] * Clostridium difficile [facility] Toxin (07/18/2018 12:23 PM [employer]NC MAINTENANCE MECHANIC) C. Difficle Toxin Negative Negative [facility] C. Difficile [facility] Antigen NegativeComment: No indication Negative [facility] of Clostridium difficile [facility] infection and no colonization. Discontinue enteric isolation and therapy. Specimen Stool Narrative Performed At Testing performed by [employer] Rapid Cassette Assay.For [facility], published [facility] sensitivity of the assay is 98.7% compared to cytotoxicity testing.For Toxin [facility] AB, published sensitivity is 87.8% and specificity 99.4% compared to cytotoxicity testing. Verification of kit performance was done by the [facility] Microbiology Lab prior to clinical use. Performing Organization Address City/State/[place] [address] [phone] [place] [address] * Lipase (07/18/2018 6:39 AM CNC MAINTENANCE MECHANIC) Lipase 11 8 - 78 U/L [facility] Specimen Blood Performing Organization Address City/State/Zipcode Phone Number [place] [phone] [place] [address] after 11/12/2017 Insurance Payer Benefit Subscriber ID Type Phone Address Plan / Group [employer] - MGD CARE CIGNA xxxxxxxxxxx HMO/POS HMO/POS/OP EN ACCESS Advance Directives For more information, please contact: [place] [address] Date Inactivated Comments Code Status Date Activated 07/27/2018 7:42 PM Full Code 07/26/2018 3:31 AM This code status was determined by: Patient 07/21/2018 3:34 PM Full Code 07/17/2018 11:06 PM This code status was determined by: Patient 08/29/2017 5:57 PM Full Code 08/28/2017 8:31 PM This code status was determined by: Patient 08/07/2017 5:23 PM Full Code 08/05/2017 2:57 PM This code status was determined by: Patient 07/29/2017 2:04 PM Full Code 07/20/2017 4:04 PM This code status was determined by: Patient
--- OUTSIDE RECORDS SUMMARY | 2018-11-13 05:40 | XMS REPORT | Summary of Care ---
Author Author [facility] Organization [facility] Address Unknown Phone Unavailable Encounter CHARLEY Bryson(KERI) [id number] Date(s): 10/02/17 - 10/02/17 [facility] [address] [employer] provided by [facility] [place] [address]- Encounter Diagnosis Left-sided weakness (Discharge Diagnosis) - 10/02/17 Discharge Disposition: Home or Self Care Attending Physician: Inge Raines MD Vital Signs Most recent to 1 2 oldest [Reference Range]: Height 162.56 cm (10/02/17 11:05 AM) Temperature Oral 98.1 DegF 98.2 DegF [96.4-99.1 DegF] (10/02/17 3:31 PM) (10/02/17 11:15 AM) Blood Pressure 145/88 mmHg 152/94 mmHg [90-140/60-90 mmHg] *HI* *HI* (10/02/17 3:31 PM) (10/02/17 11:15 AM) Respiratory Rate 16 BRMIN 18 BRMIN [14-20 BRMIN] (10/02/17 3:31 PM) (10/02/17 11:15 AM) Peripheral Pulse 85 bpm 89 bpm Rate [60-100 bpm] (10/02/17 3:31 PM) (10/02/17 11:15 AM) Weight 113.636 kg (10/02/17 11:05 AM) Body Mass Index 43 m2 (10/02/17 11:05 AM) Problem List Condition Effective Dates Status Health Status Informant Anemia(Confirmed) Resolved Anemia(Confirmed) Resolved Anxiety(Confirmed) Resolved Anxiety(Confirmed) Active Anxiety(Confirmed) Resolved Depression(Confirmed Active ) Depression(Confirmed Resolved ) Depression(Confirmed Resolved ) Iron deficiency Active anemia secondary to inadequate dietary iron intake(Confirmed) Cataract(Confirmed) Resolved Cataract(Confirmed) Resolved Migraine(Confirmed) Resolved Migraine(Confirmed) Resolved Port(Confirmed) Resolved Sleep Resolved apnea(Confirmed) Allergies, Adverse Reactions, Alerts Substance Reaction Severity Status Zofran Active Augmentin Active Advair Diskus Active Tape Active Medications acetaminophen 1,000 mg, 2 tab, Route: PO, Drug form: TAB, ONCE, Dosing Weight 113.636, kg, Imani ority: STAT, Start date: 10/02/17 13:22:00 CDT, Stop date: 10/02/17 13:22:00 CDT Notes: Max acetaminophen 4000 mg/day (4 gm/day). (Same as: Tylenol Extra Streng th) Start Date: 10/02/17 Stop Date: 10/02/17 Status: Completed Benadryl 25 mg, 1 cap, Route: PO, Drug form: CAP, ONCE, Dosing Weight 113.636, kg, Priori ty: STAT, Start date: 10/02/17 14:04:00 CDT, Stop date: 10/02/17 14:04:00 CDT Notes: (Same as: Benadryl) Start Date: 10/02/17 Stop Date: 10/02/17 Status: Completed ibuprofen 600 mg, 1 tab, Route: PO, Drug form: TAB, ONCE, Dosing Weight 113.636, kg, Prior ity: STAT, Start date: 10/02/17 13:58:00 CDT, Stop date: 10/02/17 13:58:00 CDT Notes: (Same as: Motrin)"Do Not Crush" Take with food. Start Date: 10/02/17 Stop Date: 10/02/17 Status: Completed Phenergan 12.5 mg, 1 tab, Route: PO, Drug form: TAB, ONCE, Dosing Weight 113.636, kg, Prio rity: STAT, Start date: 10/02/17 14:04:00 CDT, Stop date: 10/02/17 14:04:00 CDT Notes: (Same as: Phenergan) Start Date: 10/02/17 Stop Date: 10/02/17 Status: Completed promethazine 12.5 mg, 0.5 mL, Route: IVPB, Drug form: INJ, ONCE, Dosing Weight 113.636, kg, P riority: STAT, Start date: 10/02/17 13:22:00 CDT, Stop date: 10/02/17 13:22:00 C DT Notes: Do not give IV push. (Same as: Phenergan) Start Date: 10/02/17 Stop Date: 10/02/17 Status: Discontinued Visipaque 320mg/ml 100 mL, Route: IVP, Drug Form: SOLN, Dosing Weight 113.636, kg, ONCALL, STAT, St art date: 10/02/17 12:54:00 CDT, Duration: 1 doses or times, Stop date: 10/03/17 0:00:00 CDT, Dose=2.2ml/kg, Max trop=028ze -- "To be infused by Radiology Staff ONLY" Notes: (Same as: Visipaque).WASTE: F/P - Black; E - Municipal Trash Bin Start Date: 10/02/17 Stop Date: 10/02/17 Status: Discontinued Results ELECTROLYTES Most recent to 1 oldest [Reference Range]: Sodium Lvl [135-145 143 mEq/L mEq/L] (10/02/17 11:50 AM) Potassium Lvl 3.5 mEq/L [3.5-5.1 mEq/L] (10/02/17 11:50 AM) Chloride Lvl [95-109 105 mEq/L mEq/L] (10/02/17 11:50 AM) CO2 [24-32 mEq/L] 28 mEq/L (10/02/17 11:50 AM) AGAP [10.0-20.0 13.5 mEq/L mEq/L] (10/02/17 11:50 AM) CHEM PANEL Most recent to 1 oldest [Reference Range]: Creatinine Lvl 1.07 mg/dL [0.50-1.40 mg/dL] (10/02/17 11:50 AM) eGFR 38 mL/min/1.73m2 1 *NA* (10/02/17 11:50 AM) BUN [7-22 mg/dL] 8 mg/dL (10/02/17 11:50 AM) Glucose Lvl [70-99 91 mg/dL mg/dL] (10/02/17 11:50 AM) Calcium Lvl 8.6 mg/dL [8.5-10.5 mg/dL] (10/02/17 11:50 AM) 1Result Comment: The eGFR is calculated using the [...] from the National Kidney Disease Education Program ( NKDEP) which additionally recommends that when the eGFR is used in patients with extremes of body mass index for purposes of drug dosing, the eGFR should be mul tiplied by the estimated BMI. HEMATOLOGY Most recent to 1 oldest [Reference Range]: WBC [3.7-10.4 K/CMM] 9.9 K/CMM (10/02/17 11:50 AM) RBC [4.20-5.40 5.27 M/CMM M/CMM] (10/02/17 11:50 AM) Hgb [12.0-16.0 g/dL] 13.2 g/dL (10/02/17 11:50 AM) Hct [36.0-48.0 %] 41.2 % (10/02/17 11:50 AM) MCV [80.0-98.0 fL] 78.2 fL *LOW* (10/02/17 11:50 AM) MCH [27.0-31.0 pg] 25.1 pg *LOW* (10/02/17 11:50 AM) MCHC [32.0-36.0 32.2 g/dL g/dL] (10/02/17 11:50 AM) RDW [11.5-14.5 %] 15.6 % *HI* (10/02/17 11:50 AM) MPV [7.4-10.4 fL] 7.0 fL *LOW* (10/02/17 11:50 AM) Platelet [133-450 363 K/CMM K/CMM] (10/02/17 11:50 AM) Segs [45.0-75.0 %] 69.3 % (10/02/17 11:50 AM) Lymphocytes 18.5 % [20.0-40.0 %] *LOW* (10/02/17 11:50 AM) Monocytes [2.0-12.0 5.4 % %] (10/02/17 11:50 AM) Eosinophils [0.0-4.0 6.0 % %] *HI* (10/02/17 11:50 AM) Basophils [0.0-1.0 0.8 % %] (10/02/17 11:50 AM) Segs-Bands # 6.8 K/CMM [1.5-8.1 K/CMM] (10/02/17 11:50 AM) Lymphocytes # 1.8 K/CMM [1.0-5.5 K/CMM] (10/02/17 11:50 AM) Monocytes # [0.0-0.8 0.5 K/CMM K/CMM] (10/02/17 11:50 AM) Eosinophils # 0.6 K/CMM [0.0-0.5 K/CMM] *HI* (10/02/17 11:50 AM) Basophils # [0.0-0.2 0.1 K/CMM K/CMM] (10/02/17 11:50 AM) Microcyte [None 1+ Seen] *ABN* (10/02/17 11:50 AM) PT [12.0-14.7 12.2 seconds seconds] (10/02/17 11:50 AM) INR [0.85-1.17] 0.91 (10/02/17 11:50 AM) PTT [22.9-35.8 31.1 seconds seconds] (10/02/17 11:50 AM) Immunizations Given and Recorded Vaccine Date Status Refusal Reason influenza virus vaccine, inactivated 02/19/15 Given Not Given Vaccine Date Status Refusal Reason influenza virus vaccine, inactivated 02/25/14 Not Given Patient Refuses Procedures Procedure Date Related Diagnosis Body Site Status Abdominal hysterectomy Completed Abdominal hysterectomy Completed Appendectomy Completed Appendectomy Completed Appendectomy Completed Both feet1 Completed Cannulation of Portacath Completed Cataract surgery Completed section Completed Cholecystectomy Completed Cholecystectomy Completed Cholecystectomy Completed Hysterectomy Completed Sleeve resection of stomach Completed Stomach operation2 Completed 1broken 2stomach sleeves Social History Social History Type Response Substance Abuse Use: None. Alcohol Current, Type Liquor. Frequency: 1-2 times per year. 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 On presentation to the ER, patient repeating the first syllabale of every word she said exactly 4 times (Anx Anx Anx Anx Anxiety). She reports waking up normal and having no issues at work. Patient was given some juice on arrival to ER for BS of 63. I informed the patient that there was no known neurologic condition that caused the repetition of a syllable exactly 4 times on each word. I encouraged her to take some breaths and try and relax a bit. Her speech improved dramatically to minimal repetition. Patient was observed to be keeping her L arm propped up on her abdomen or resting on the arm of the stretcher, but on exam, was unable to move any part of it. Again, with encouragement, her exam improved to the ability to lift her arm with drift. With encouragement, her overall exam improved. She was able to assit with undress herself for MRI. Due to both CT scanners being full and the ability to take the patient straight to MRI, CTH was cancelled in favor of a more sensitive test. Review of Systems: GEN: no fever, chills, weight loss, fatigue EYES: no blurred vision, double vision CARDIO: no chest pain, palpitations PULM: no shortness of breath, cough GI: no nausea, vomiting, diarrhea, no abd pain : no frequency, dysuria, hematuria NEURO: see HPI SKIN: no rash or lesion MSK: no pain, swelling, redness, heat in muscles, no limited ROM, weakness, or atrophy, no cramps LYMPH/IMMUNO: No lymph node enlargement/tenderness, no heat/cold intolerance Past Medical History: Anxiety Depression Past Surgical History: Cholecystectomy, Appendectomy Family Medical History: unknown Social History: Denies alcohol and illicit drug use. Denies smoking. Medications: 2 unknown medications for anxiety and depression Allergies: zofran, augmentin Physical Exam: VitalsTmp(F)[id number] 10/02 11:[id number]--- 24 Hr Tmax: 98.2F (36.78c) at 10/02 11:15Vital Signs are the last 5 in the past 48 hours. GENERAL: Awake, alert in NAD HEENT: - Normocephalic and atraumatic, dry mm, no LN++, no Thyromegally LUNGS - Regular, unlabored CV - RRR, equal pulses bilaterally. ABDOMEN - Soft, nontender, nondistended NEURO: Mental Status: AA&Ox3 Language: speech is clear. Naming, repitition, fluency, and comprehension intact. Cranial Nerves: PERRL mm/brisk. EOMI, visual mcdowell full, no facial asymmetry, facial sensation intact, hearing intact, tongue/uvula/soft palate midline, normal sternocleidomastoid and trapezius muscle strength. No evidence of tongue atrophy or fibrillations Motor: Exam dramatically improved to drift in L arm and L leg with encouragement. Right side full strength Tone: is normal and bulk is normal Sensation- Intact to light touch bilaterally Coordination: FTN intact bilaterally, no ataxia in BLE. Gait- deferred MRS 0-Completely asymptomatic and back to baseline post-stroke NIH Stroke Scale (NIHSS) 1a. Level of Consciousness; 0-alert 1-drowsy 2-stupor 3-coma 1b. LOC Questions month and age; 0-both 1-one 2-neither 1c. LOC Commands open/close eyes, automation controls engineer/release non-paretic hand; 0-both 1-one 2-neither 2. Best Gaze; 0-nl 1-partial 2-forced gaze 3. Visual Mcdowell; 0-No visual loss. 1-Partial hemianopia 2-Complete 3-Bilateral 4. Facial Palsy; 0-none 1-minor 2-partial 3-complete 5. Motor - R arm; 0-No drift 1-Drift 2-Some antigravity 3-No antigravity 4-No movement 6. Motor - R leg; 0-No drift 1-Drift 2-Some antigravity 3-No antigravity 4-No movement 1 7. Motor - L arm; 0-No drift 1-Drift 2-Some antigravity 3-No antigravity 4-No movement 1 8. Motor - L leg; 0-No drift 1-Drift 2-Some antigravity 3-No antigravity 4-No movement 9. Limb Ataxia; 0 absent 1 - 1limb 2 - 2 limbs 10. Sensory; 0-nl 1-partial loss 2-dense loss 11. Best Language; 0-nl 1-mild/mod 2-severe 3-mute 12. Dysarthria; 0-nl 1-mild/mod 2-severe x-untestable 13. Extinction and Inattention (formerly Neglect); 0-none 1-partial 2-complete TOTAL SCORE 2 Labs (Last four charted values) WBC 9.9(OCTOBER 02) Hgb 13.2(OCTOBER 02) Hct 41.2(OCTOBER 02) Plt 363(OCTOBER 02) Na 143(OCTOBER 02) K 3.5(OCTOBER 02) CO2 28(OCTOBER 02) Cl 105(OCTOBER 02) Cr 1.07(OCTOBER 02) BUN 8(OCTOBER 02) Glucose Random 91(OCTOBER 02) Ca 8.6(OCTOBER 02) PT 12.2(OCTOBER 02) INR 0.91(OCTOBER 02) PTT 31.1(OCTOBER 02) EKG: NSR Imaging: MRI Brain: IMPRESSION: 1. No acute intracranial abnormality, normal MRI of the brain. There is no acute hemorrhage or acute infarct. CTA H&N: Unable to establish IV access. A/P: 47 yearold female with Anxiety and Depression pw PACK PRESS OPERATOR that improves with encouragement and repetition of syllables that also improved with enourgement to relax a bit. MRI of the brain is normal, and verified with neuroradiology. CTA was attempted but patient has poor IV access and the IV placed under US guidance blew during the contrast bolus. Given the lack of vascular risk factors and great improvement in exam with encouragement, no further stroke recommendations are indicated at this time. She may follow up with her PCP. Case has been discussed with Dr. Fonseca and Dr. Perez. [id number]
--- OUTSIDE RECORDS SUMMARY | 2018-11-13 05:40 | XMS REPORT ---
Author Author Admin, [place] Organization [facility] Address [address] [address] Phone Allergies, Adverse Reactions, Alerts Allergy Name Reaction Description Start Date Severity Status Provider ZOFRAN Critical Active Anish Garcia MD ADVAIR Critical Active Anish Garcia MD AUGMENTIN Critical Active Anish Garcia MD Conditions or Problems Problem Name Problem Code Onset Date Status Entry Date Provider Comment Standard Description Annotate ANXIETY DISORDER, UNSPECIFIED Active Artie Uriostegui MD Anxiety state, unspecified DEPRESSIVE DISORDER, MAJOR, RECURRENT EPISODE, UNSPECIFIED Active Artie Uriostegui MD Major depressive disorder, recurrent episode, unspecified degree BIPOLAR AND RELATED DISORDER, UNSPECIFIED Inactive Artie Uriostegui MD BIPOLAR AND RELATED DISORDER, UNSPECIFIED Resolved Artie Uriostegui MD Bipolar disorder, unspecified Medication List Medication Instructions Start Date Stop Date Generic Name NDC Status Provider Patient Instruction CLONAZEPAM 1 MG ORAL TABLET Take 1 tablet by mouth twice a day as needed for anxiety. CLONAZEPAM 72269299604 Active Artie Uriostegui MD Active ABILIFY ORAL TABLET 10 MG TAKE 1 TABLET BY MOUTH ONCE DAILY AT BEDTIME ARIPIPRAZOLE 55238583679 Active Artie Uriostegui MD Active DOXEPIN HCL 10 MG ORAL CAPSULE Take 1-2 cap by mouth at bedtime as needed for sleep. DOXEPIN HCL 52937997793 Active Artie Uriostegui MD Active HYDROCODONE-ACETAMINOPHEN 10-325 MG ORAL TABLET TAKE ONE (1) TABLET(S) BY MOUTH EVERY SIX HOURS NEEDED. HYDROCODONE-ACETAMINOPHEN 54961552725 Active Artie Uriostegui MD Active MORPHINE SULFATE ER 60 MG ORAL TABLET EXTENDED RELEASE MORPHINE SULFATE 49118921490 Active Artie Uriostegui MD Active PANTOPRAZOLE SODIUM 40 MG ORAL TABLET DELAYED RELEASE PANTOPRAZOLE SODIUM 66438905586 Active Artie Uriostegui MD Active ASPIRIN EC 81 MG ORAL TABLET DELAYED RELEASE TAKE ONE (1) TABLET(S) BY MOUTH ONCE A DAY. ASPIRIN 67621069271 Active Artie Uriostegui MD Active METOPROLOL TARTRATE 25 MG ORAL TABLET TAKE ONE-HALF (1/2) TABLET(S) BY MOUTH TWICE A DAY HOLD IF BLOOD PRESSURE IS LESS THAN 110 OR HEART RATE IS LESS THAN 60. METOPROLOL TARTRATE 68090941181 Active Artie Uriostegui MD Active ATORVASTATIN CALCIUM 80 MG ORAL TABLET TAKE ONE (1) TABLET(S) BY MOUTH AT BEDTIME. ATORVASTATIN CALCIUM 68814955460 Active Artie Uriostegui MD Active LAMICTAL 100 MG ORAL TABLET Take 1 tab By Mouth Twice a Day LAMOTRIGINE 39847517257 Active Artie Uriostegui MD Active PRISTIQ 100 MG ORAL TABLET EXTENDED RELEASE 24 HOUR Take 2 tablets by mouth at bedtime. DESVENLAFAXINE SUCCINATE 29260486573 Active Artie Uriostegui MD Active TRAZODONE HCL 100 MG ORAL TABLET Take 1 1/2 - 2 tablets by mouth at bedtime as needed for sleep. TRAZODONE HCL 100 MG ORAL TABLET 510201 TRAZODONE HCL Inactive ABILIFY 5 MG ORAL TABLET Take 1 tab By Mouth take at bedtime ABILIFY 5 MG ORAL TABLET 359750 ARIPIPRAZOLE Inactive KLONOPIN 0.5 MG ORAL TABLET Take 1 tablet by mouth twice a day as needed for anxiety. KLONOPIN 0.5 MG ORAL TABLET 188831 CLONAZEPAM Inactive TRAZODONE HCL 100 MG ORAL TABLET Take 1 1/2 - 2 tablets by mouth at bedtime as needed for sleep. TRAZODONE HCL 21041408184 No Longer Active Artie Uriostegui MD Active ABILIFY 5 MG ORAL TABLET Take 1 tab By Mouth take at bedtime ARIPIPRAZOLE 99784164597 No Longer Active Artie Uriostegui MD Active KLONOPIN 0.5 MG ORAL TABLET Take 1 tablet by mouth twice a day as needed for anxiety. CLONAZEPAM 34262231559 No Longer Active Artie Uriostegui MD Active Vital Signs Date Name Value Unit Range Description blood pressure, diastolic 88 mm[Hg] BP nunez blood pressure, systolic 139 mm[Hg] BP sys height E&M 68 [in_us] Bdy height pulse rate E&M 92 /min Heart rate weight E&M 288.38 [lb_av] Weight Measured blood pressure, diastolic 83 mm[Hg] BP nunez blood pressure, systolic 146 mm[Hg] BP sys height E&M 68 [in_us] Bdy height pulse rate E&M 111 /min Heart rate weight E&M 293.80 [lb_av] Weight Measured blood pressure, diastolic 83 mm[Hg] BP nunez blood pressure, systolic 126 mm[Hg] BP sys height E&M 68 [in_us] Bdy height pulse rate E&M 80 /min Heart rate weight E&M 287.44 [lb_av] Weight Measured blood pressure, diastolic 87 mm[Hg] BP nunez blood pressure, systolic 145 mm[Hg] BP sys height E&M 68 [in_us] Bdy height pulse rate E&M 80 /min Heart rate weight E&M 292 [lb_av] Weight Measured blood pressure, diastolic 83 mm[Hg] BP nunez blood pressure, systolic 119 mm[Hg] BP sys height E&M 68 [in_us] Bdy height pulse rate E&M 111 /min Heart rate weight E&M 297 [lb_av] Weight Measured blood pressure, diastolic 83 mm[Hg] BP nunez blood pressure, systolic 116 mm[Hg] BP sys height E&M 68 [in_us] Bdy height pulse rate E&M 114 /min Heart rate weight E&M 298.38 [lb_av] Weight Measured blood pressure, diastolic 84 mm[Hg] BP nunez blood pressure, systolic 121 mm[Hg] BP sys height E&M 68 [in_us] Bdy height pulse rate E&M 106 /min Heart rate weight E&M 292.40 [lb_av] Weight Measured Encounters Date Encounter Provider Code Facility 14:33:39 CDT Est Patient Exp Problem - 47793 Artie Uriostegui MD CPT-04511 [facility] 15:50:44 PAPER INSERTER Est Patient Exp Problem - 46653 Artie Uriostegui MD CPT-76304 [facility] 11:48:24 PAPER INSERTER Est Patient Exp Problem - 37001 Artie Uriostegui MD CPT-45252 [facility] 09:03:46 CDT Est Patient Detailed - 86464 Artie Uriostegui MD CPT-79883 [facility] 09:08:45 CDT Est Patient Detailed - 89636 Artie Uriostegui MD CPT-30601 [facility] 10:24:55 CDT Est Patient Detailed - 63831 Artie Uriostegui MD CPT-15694 [facility] 11:31:03 CDT Est Patient Detailed - 18129 Artie Uriostegui MD CPT-11761 [facility] 08:24:46 PAPER INSERTER Est Patient Detailed - 73945 Artie Uriostegui MD CPT-35036 [facility] 14:13:15 PAPER INSERTER Est Patient Exp Problem - 63551 Artie Uriostegui MD CPT-66318 [facility] 15:16:19 PAPER INSERTER Est Patient Exp Problem - 23013 Artie Uriostegui MD CPT-09880 [facility] 09:07:07 CDT Est Patient Exp Problem - 88597 Artie Uriostegui MD CPT-75853 [facility] 12:12:02 CDT Est Patient Detailed - 59289 Artie Uriostegui MD CPT-77800 [facility] 09:31:40 CDT Est Patient Detailed - 51856 Artie Uriostegui MD CPT-37166 [facility] 10:45:06 CDT Est Patient Exp Problem - 72109 Anish Garcia MD CPT-35422 [facility] 10:33:08 CDT Est Patient Exp Problem - 08550 Anish Garcia MD CPT-14644 [facility] Procedures Code Procedure Name Date Entry Date Standard Description CPT-79358 Diagnostic evaluation (no medical) - 18046 09:23:41 CDT CPT-05085 Diagnostic evaluation with medical - 32434 12:02:57 CDT
--- OUTSIDE RECORDS SUMMARY | 2018-11-13 05:40 | XMS REPORT ---
Author Author Admin, [place] Organization [facility] Address [address] [address] Phone Allergies, Adverse Reactions, Alerts Allergy Name [...] a day as needed for anxiety. CLONAZEPAM 17434862421 Active Artei Uriostegui MD Active ABILIFY ORAL TABLET 10 MG TAKE 1 TABLET BY MOUTH ONCE DAILY AT BEDTIME ARIPIPRAZOLE 44389220468 Active Artie Uriostegui MD Active DOXEPIN HCL 10 MG ORAL CAPSULE Take 1-2 cap by mouth at bedtime as needed for sleep. DOXEPIN HCL 24467540248 Active Artie Uriostegui MD Active HYDROCODONE-ACETAMINOPHEN 10-325 MG ORAL TABLET TAKE ONE (1) TABLET(S) BY MOUTH EVERY SIX HOURS NEEDED. HYDROCODONE-ACETAMINOPHEN 19314275132 Active Artie Uriostegui MD Active MORPHINE SULFATE ER 60 MG ORAL TABLET EXTENDED RELEASE MORPHINE SULFATE 86773578136 Active Artie Uriostegui MD Active PANTOPRAZOLE SODIUM 40 MG ORAL TABLET DELAYED RELEASE PANTOPRAZOLE SODIUM 17178697247 Active Artie Uriostegui MD Active ASPIRIN EC 81 MG ORAL TABLET DELAYED RELEASE TAKE ONE (1) TABLET(S) BY MOUTH ONCE A DAY. ASPIRIN 78338468734 Active Artie Uriostegui MD Active METOPROLOL TARTRATE 25 MG ORAL TABLET TAKE ONE-HALF (1/2) TABLET(S) BY MOUTH TWICE A DAY HOLD IF BLOOD PRESSURE IS LESS THAN 110 OR HEART RATE IS LESS THAN 60. METOPROLOL TARTRATE 63223927990 Active Artie Uriostegui MD Active ATORVASTATIN CALCIUM 80 MG ORAL TABLET TAKE ONE (1) TABLET(S) BY MOUTH AT BEDTIME. ATORVASTATIN CALCIUM 53445806493 Active Artie Uriostegui MD Active LAMICTAL 100 MG ORAL TABLET Take 1 tab By Mouth Twice a Day LAMOTRIGINE 01166392602 Active Artie Uriostegui MD Active PRISTIQ 100 MG ORAL TABLET EXTENDED RELEASE 24 HOUR Take 2 tablets by mouth at bedtime. DESVENLAFAXINE SUCCINATE 83146750088 Active Artie Uriostegui MD Active TRAZODONE HCL 100 MG ORAL TABLET Take 1 1/2 - 2 tablets by mouth at bedtime as needed for sleep. TRAZODONE HCL 100 MG ORAL TABLET [id number] TRAZODONE HCL Inactive ABILIFY 5 MG ORAL TABLET Take 1 tab By Mouth take at bedtime ABILIFY 5 MG ORAL TABLET 397545 ARIPIPRAZOLE Inactive KLONOPIN 0.5 MG ORAL TABLET Take 1 tablet by mouth twice a day as needed for anxiety. KLONOPIN 0.5 MG ORAL TABLET 630406 CLONAZEPAM Inactive TRAZODONE HCL 100 MG ORAL TABLET Take 1 1/2 - 2 tablets by mouth at bedtime as needed for sleep. TRAZODONE HCL 52166052571 No Longer Active Artie Uriostegui MD Active ABILIFY 5 MG ORAL TABLET Take 1 tab By Mouth take at bedtime ARIPIPRAZOLE 44540964800 No Longer Active Artie Uriostegui MD Active KLONOPIN 0.5 MG ORAL TABLET Take 1 tablet by mouth twice a day as needed for anxiety. CLONAZEPAM 42631162803 No Longer Active Artie Uriostegui MD Active Vital Signs Date Name Value Unit Range Description blood pressure, diastolic 78 mm[Hg] BP nunez blood pressure, systolic 140 mm[Hg] BP sys height E&M 68 [in_us] Bdy height pulse rate E&M 62 /min Heart rate weight E&M 290.25 [lb_av] Weight Measured blood pressure, diastolic 88 mm[Hg] BP nunez [...] rate weight E&M 298.38 [lb_av] Weight Measured Encounters Date Encounter Provider Code Facility 09:03:24 CDT Est Patient Detailed - [id number] Artie Uriostegui MD CPT-18436 [facility] 14:33:39 CDT Est Patient Exp Problem - 35163 Artie Uriostegui MD CPT-99708 [facility] 15:50:44 [employer] Est Patient Exp Problem - 66948 Artie Uriostegui MD CPT-71290 [facility] 11:48:24 [employer] Est Patient Exp Problem - 70798 Artie Uriostegui MD CPT-93220 [facility] 09:03:46 CDT Est Patient Detailed - 42604 Artie Uriostegui MD CPT-02562 [facility] 09:08:45 CDT Est Patient Detailed - 29173 Artie Uriostegui MD CPT-59507 [facility] 10:24:55 CDT Est Patient Detailed - 86043 Artie Uriostegui MD CPT-14408 [facility] 11:31:03 CDT Est Patient Detailed - 16638 Artie Uriostegui MD CPT-38307 [facility] 08:24:46 [employer] Est Patient Detailed - 27781 Artie Uriostegui MD CPT-62784 [facility] 14:13:15 [employer] Est Patient Exp Problem - 73597 Artie Uriostegui MD CPT-37414 [facility] 15:16:19 [employer] Est Patient Exp Problem - 63825 Artie Uriostegui MD CPT-41379 [facility] 09:07:07 CDT Est Patient Exp Problem - 33158 Artie Uriostegui MD CPT-53757 [facility] 12:12:02 CDT Est Patient Detailed - 39299 Artie Uriostegui MD CPT-56719 [facility] 09:31:40 CDT Est Patient Detailed - 79528 Artie Uriostegui MD CPT-23345 [facility] 10:45:06 CDT Est Patient Exp Problem - 09178 Anish Garcia MD CPT-93474 [facility] 10:33:08 CDT Est Patient Exp Problem - 42110 Anish Garcia MD CPT-75496 [facility] Procedures Code Procedure Name Date Entry Date Standard Description CPT-52332 Diagnostic evaluation (no medical) - 83302 09:23:41 CDT CPT-86591 Diagnostic evaluation with medical - 66312 12:02:57 CDT
--- OUTSIDE RECORDS SUMMARY | 2018-11-13 05:41 | XMS REPORT ---
[facility] Unknown Phone Unavailable Care Team Providers Care Technical Marketing Engineer Name Role Phone RADHA MENA Unavailable Unavailable MARGUERITE PHILLIPS Unavailable Unavailable SUBHASH IBARRA Unavailable Unavailable Amy ANDREW Unavailable Unavailable ZINDCYNDEE MURRAY Unavailable Unavailable ALFONSO, AMRITAR Unavailable Unavailable SARANYA SEAY Unavailable Unavailable Payers Payer Name Policy Type Policy Number Effective Date Expiration Date Problems This patient has no known problems. Allergies, Adverse Reactions, Alerts Allergy Name Allergy Type Status Severity Reaction(s) Onset Date Inactive Date Treating Clinician Comments amoxicillin trihydrate DA Active SV 2018-03-15 00:00:00 ondansetron HCl DA Active KS 2018-03-15 00:00:00 fluticasone propionate DA Active SV 2018-03-15 00:00:00 salmeterol xinafoate DA Active SV 2018-03-15 00:00:00 potassium clavulanate DA Active SV 2018-03-15 00:00:00 adhesive tape DA Active U 2018-03-15 00:00:00 amoxicillin trihydrate DA Active SV 2017-10-03 00:00:00 ondansetron HCl DA Active KS 2017-10-03 00:00:00 fluticasone propionate DA Active SV 2017-10-03 00:00:00 salmeterol xinafoate DA Active SV 2017-10-03 00:00:00 potassium clavulanate DA Active SV 2017-10-03 00:00:00 adhesive tape DA Active U 2017-10-03 00:00:00 Medications This patient has no known medications. Results Test Description Test Time Test Comments Text Results Atomic Results Result Comments TROPONIN-I 2018-10-26 14:33:00 TROPONIN-I (test code=TROPI) <0.015 ng/mL 0-0.045 [id number] 09:55:00* Test Item Value Reference Range Comments TROPONIN-I (test code=TROPI) <0.015 ng/mL 0-0.045 B-TYPE NATRIURETIC [id number] 05:19:00* Test Item Value Reference Range Comments B-TYPE NATRIURETIC PEPTIDE (test code=BNP) 39.72 pgram/mL 0-100 CBC W/AUTO [id number] 04:54:00* Test Item Value Reference Range Comments WHITE BLOOD CELL (test code=WBC) 10.8 K/mm3 4.5-12.5 RED BLOOD CELL (test code=RBC) 4.74 mill/mm3 3.7-5.2 HEMOGLOBIN (test code=HGB) 12.2 gram/dL 11.5-15.5 HEMATOCRIT (test code=HCT) 40.9 % 36.0-46.0 MEAN CELL VOLUME (test code=MCV) 86.3 fL 80-98 MEAN CELL HGB (test code=MCH) 25.7 picogram 27.0-33.0 MEAN CELL HGB CONCETRATION (test code=MCHC) 29.8 gram/dL 33.0-36.0 RED CELL DISTRIBUTION WIDTH (test code=RDW) 15.2 % 11.6-16.2 RED CELL DISTRIBUTION WIDTH SD (test code=RDW-SD) 48.2 fL 37.0-51.0 PLATELET COUNT (test code=PLT) 240 K/mm3 150-450 MEAN PLATELET VOLUME (test code=MPV) 9.7 fL 6.7-11.0 NEUTROPHIL % (test code=NT%) 91.8 % 39.0-69.0 IMMATURE GRANULOCYTE % (test code=IG%) 0.5 % 0.0-5.0 LYMPHOCYTE % (test code=LY%) 6.5 % 25.0-55.0 MONOCYTE % (test code=MO%) 1.0 % 0.0-10.0 EOSINOPHIL % (test code=EO%) 0.1 % 0.0-5.0 BASOPHIL % (test code=BA%) 0.1 % 0.0-1.0 NUCLEATED RBC % (test code=NRBC%) 0.0 % 0-0 NEUTROPHIL # (test code=NT#) 9.94 K/mm3 1.8-7.7 IMMATURE GRANULOCYTE # (test code=IG#) 0.05 x10 3/uL 0-0.03 LYMPHOCYTE # (test code=LY#) 0.70 K/mm3 1.0-5.0 MONOCYTE # (test code=MO#) 0.11 K/mm3 0-0.8 EOSINOPHIL # (test code=EO#) 0.01 K/mm3 0.0-0.5 BASOPHIL # (test code=BA#) 0.01 K/mm3 0.0-0.2 NUCLEATED RBC # (test code=NRBC#) 0.00 K/mm3 0.0-0.1 MANUAL DIFF REQUIRED (test code=MDIFF) NO, ONLY SCAN NEEDED DIFFERENTIAL [id number] 04:54:00* Test Item Value Reference Range Comments STAIN ACCEPTABILITY (test code=STN ACCEPTABLE) STAIN ACCEPTABLE MORPHOLOGY COMMENT (test code=MOC) NORMAL PLATELET ESTIMATE (test code=PLTEST) ADEQUATE PLATELET MORPHOLOGY (test code=PLTMORPH) NORMAL COMPREHENSIVE METABOLIC [id number] 03:58:00* Test Item Value Reference Range Comments SODIUM (test code=NA) 144 mmol/L 136-145 POTASSIUM (test code=K) 4.4 mmol/L 3.5-5.1 CHLORIDE (test code=CL) 111.0 mmol/L 98-107 CARBON DIOXIDE (test code=CO2) 26.0 mmol/L 21-32 ANION GAP (test code=GAP) 11.4 10-20 GLUCOSE (test code=GLU) 150 mg/dL 74-106 BLOOD UREA NITROGEN (test code=BUN) 13 mg/dL 7-18 GLOMERULAR FILTRATION RATE (test code=GFR) > 60 mL/min >=60 Estimated GFR by using Modified MDRD formula.Chronic kidney disease is defined as either kidney damageor GFR <60 mL/min/1.73 m2 for >3 months. CREATININE (test code=CREAT) 0.90 mg/dL 0.55-1.02 Note change in reference range due to change in reagent. BUN/CREATININE RATIO (test code=BUN/CREA) 14.4 10-20 TOTAL PROTEIN (test code=PROT) 5.9 gram/dL 6.4-8.2 ALBUMIN (test code=ALB) 3.0 g/dL 3.4-5.0 GLOBULIN (test code=GLOB) 2.9 gram/dL 2.7-4.2 ALBUMIN/GLOBULIN RATIO (test code=A/G) 1.0 0.75-1.50 CALCIUM (test code=CA) 8.3 mg/dL 8.5-10.1 BILIRUBIN TOTAL (test code=BILT) 0.20 mg/dL 0.0-1.0 SGOT/AST (test code=AST) 10 IUnit/L 15-37 SGPT/ALT (test code=ALT) 19 IUnit/L 12-78 ALKALINE PHOSPHATASE TOTAL (test code=ALKP) 92 IUnit/L 45-117 Note change in reference range due to change in reagent. LIPID PROFILE (CORONARY RISK)2018-10-26 03:58:00* Test Item Value Reference Range Comments TRIGLYCERIDES (test code=TRIG) 116 mg/dL 20-150 CHOLESTEROL (test code=CHOL) 190 mg/dL 0-200 CHOLESTEROL/HDL RATIO (test code=CHOLHDL) 2.0 RATIO 0-4.9 RISK ASSOCIATED WITH CHOL/HDL RATIOS: Risk Male Female1/2 AVERAGE 3.43 3.27AVERAGE 4.97 4.442X AVERAGE 9.55 7.053X AVERAGE 23.39 11.04 REFERENCE VALUE IS RELATED TO RISK LEVELS ASRECOMMENDED BY THE SANKET. HEART, LUNG, AND BLOOD INST. HDL CHOLESTEROL (test code=HDL) 72 mg/dL 40-60 LIPOPROTEIN LDL (test code=LDL) 112 mg/dL 100-129 RN PERSONNEL, CONTACT PHYSICIAN IMMEDIATELY IF THIS IS A STROKE, AMI OR CAROTID STENOSIS PATIENT WHEN THE LDL >100 (1ST OCCURENCE, THIS ADMISSION) Reference Interval: mg/dL mmol/L Optimal <100 <2.6Near/above optimal 100-129 2.6- 3.3Borderline High 130-159 3.4-4.1High 160-189 4.1-4.9Very High >=190 >=4.9=========This LDL result is a direct measurement.========= [id number] 03:58:00* Test Item Value Reference Range Comments TROPONIN-I (test code=TROPI) <0.015 ng/mL 0-0.045 CBC W/AUTO [id number] 03:50:00* Test Item Value Reference Range Comments WHITE BLOOD CELL (test code=WBC) 10.8 K/mm3 4.5-12.5 RED BLOOD CELL (test code=RBC) 4.74 mill/mm3 3.7-5.2 HEMOGLOBIN (test code=HGB) 12.2 gram/dL 11.5-15.5 HEMATOCRIT (test code=HCT) 40.9 % 36.0-46.0 MEAN CELL VOLUME (test code=MCV) 86.3 fL 80-98 MEAN CELL HGB (test code=MCH) 25.7 picogram 27.0-33.0 MEAN CELL HGB CONCETRATION (test code=MCHC) 29.8 gram/dL 33.0-36.0 RED CELL DISTRIBUTION WIDTH (test code=RDW) 15.2 % 11.6-16.2 RED CELL DISTRIBUTION WIDTH SD (test code=RDW-SD) 48.2 fL 37.0-51.0 PLATELET COUNT (test code=PLT) 240 K/mm3 150-450 MEAN PLATELET VOLUME (test code=MPV) 9.7 fL 6.7-11.0 NEUTROPHIL % (test code=NT%) 91.8 % 39.0-69.0 IMMATURE GRANULOCYTE % (test code=IG%) 0.5 % 0.0-5.0 LYMPHOCYTE % (test code=LY%) 6.5 % 25.0-55.0 MONOCYTE % (test code=MO%) 1.0 % 0.0-10.0 EOSINOPHIL % (test code=EO%) 0.1 % 0.0-5.0 BASOPHIL % (test code=BA%) 0.1 % 0.0-1.0 NUCLEATED RBC % (test code=NRBC%) 0.0 % 0-0 NEUTROPHIL # (test code=NT#) 9.94 K/mm3 1.8-7.7 IMMATURE GRANULOCYTE # (test code=IG#) 0.05 x10 3/uL 0-0.03 LYMPHOCYTE # (test code=LY#) 0.70 K/mm3 1.0-5.0 MONOCYTE # (test code=MO#) 0.11 K/mm3 0-0.8 EOSINOPHIL # (test code=EO#) 0.01 K/mm3 0.0-0.5 BASOPHIL # (test code=BA#) 0.01 K/mm3 0.0-0.2 NUCLEATED RBC # (test code=NRBC#) 0.00 K/mm3 0.0-0.1 MANUAL DIFF REQUIRED (test code=MDIFF) NO, ONLY SCAN NEEDED DIFFERENTIAL [id number] 03:50:00* Test Item Value Reference Range Comments STAIN ACCEPTABILITY (test code=STN ACCEPTABLE) CABOT RINGS (test code=CAB) MORPHOLOGY COMMENT (test code=MOC) PLATELET ESTIMATE (test code=PLTEST) PLATELET MORPHOLOGY (test code=PLTMORPH) CBC W/AUTO [id number] 03:50:00* Test Item Value Reference Range Comments WHITE BLOOD CELL (test code=WBC) 10.8 K/mm3 4.5-12.5 RED BLOOD CELL (test code=RBC) 4.74 mill/mm3 3.7-5.2 HEMOGLOBIN (test code=HGB) 12.2 gram/dL 11.5-15.5 HEMATOCRIT (test code=HCT) 40.9 % 36.0-46.0 MEAN CELL VOLUME (test code=MCV) 86.3 fL 80-98 MEAN CELL HGB (test code=MCH) 25.7 picogram 27.0-33.0 MEAN CELL HGB CONCETRATION (test code=MCHC) 29.8 gram/dL 33.0-36.0 RED CELL DISTRIBUTION WIDTH (test code=RDW) 15.2 % 11.6-16.2 RED CELL DISTRIBUTION WIDTH SD (test code=RDW-SD) 48.2 fL 37.0-51.0 PLATELET COUNT (test code=PLT) 240 K/mm3 150-450 MEAN PLATELET VOLUME (test code=MPV) 9.7 fL 6.7-11.0 NEUTROPHIL % (test code=NT%) 91.8 % 39.0-69.0 IMMATURE GRANULOCYTE % (test code=IG%) 0.5 % 0.0-5.0 LYMPHOCYTE % (test code=LY%) 6.5 % 25.0-55.0 MONOCYTE % (test code=MO%) 1.0 % 0.0-10.0 EOSINOPHIL % (test code=EO%) 0.1 % 0.0-5.0 BASOPHIL % (test code=BA%) 0.1 % 0.0-1.0 NUCLEATED RBC % (test code=NRBC%) 0.0 % 0-0 NEUTROPHIL # (test code=NT#) 9.94 K/mm3 1.8-7.7 IMMATURE GRANULOCYTE # (test code=IG#) 0.05 x10 3/uL 0-0.03 LYMPHOCYTE # (test code=LY#) 0.70 K/mm3 1.0-5.0 MONOCYTE # (test code=MO#) 0.11 K/mm3 0-0.8 EOSINOPHIL # (test code=EO#) 0.01 K/mm3 0.0-0.5 BASOPHIL # (test code=BA#) 0.01 K/mm3 0.0-0.2 NUCLEATED RBC # (test code=NRBC#) 0.00 K/mm3 0.0-0.1 MANUAL DIFF REQUIRED (test code=MDIFF) NO, ONLY SCAN NEEDED DIFFERENTIAL [id number] 03:50:00* Test Item Value Reference Range Comments STAIN ACCEPTABILITY (test code=STN ACCEPTABLE) MORPHOLOGY COMMENT (test code=MOC) PLATELET ESTIMATE (test code=PLTEST) PLATELET MORPHOLOGY (test code=PLTMORPH) CBC W/AUTO [id number] 03:49:00* Test Item Value Reference Range Comments WHITE BLOOD CELL (test code=WBC) 10.8 K/mm3 4.5-12.5 RED BLOOD CELL (test code=RBC) 4.74 mill/mm3 3.7-5.2 HEMOGLOBIN (test code=HGB) 12.2 gram/dL 11.5-15.5 HEMATOCRIT (test code=HCT) 40.9 % 36.0-46.0 MEAN CELL VOLUME (test code=MCV) 86.3 fL 80-98 MEAN CELL HGB (test code=MCH) 25.7 picogram 27.0-33.0 MEAN CELL HGB CONCETRATION (test code=MCHC) 29.8 gram/dL 33.0-36.0 RED CELL DISTRIBUTION WIDTH (test code=RDW) 15.2 % 11.6-16.2 RED CELL DISTRIBUTION WIDTH SD (test code=RDW-SD) 48.2 fL 37.0-51.0 PLATELET COUNT (test code=PLT) 240 K/mm3 150-450 MEAN PLATELET VOLUME (test code=MPV) 9.7 fL 6.7-11.0 NEUTROPHIL % (test code=NT%) 91.8 % 39.0-69.0 IMMATURE GRANULOCYTE % (test code=IG%) 0.5 % 0.0-5.0 LYMPHOCYTE % (test code=LY%) 6.5 % 25.0-55.0 MONOCYTE % (test code=MO%) 1.0 % 0.0-10.0 EOSINOPHIL % (test code=EO%) 0.1 % 0.0-5.0 BASOPHIL % (test code=BA%) 0.1 % 0.0-1.0 NUCLEATED RBC % (test code=NRBC%) 0.0 % 0-0 NEUTROPHIL # (test code=NT#) 9.94 K/mm3 1.8-7.7 IMMATURE GRANULOCYTE # (test code=IG#) 0.05 x10 3/uL 0-0.03 LYMPHOCYTE # (test code=LY#) 0.70 K/mm3 1.0-5.0 MONOCYTE # (test code=MO#) 0.11 K/mm3 0-0.8 EOSINOPHIL # (test code=EO#) 0.01 K/mm3 0.0-0.5 BASOPHIL # (test code=BA#) 0.01 K/mm3 0.0-0.2 NUCLEATED RBC # (test code=NRBC#) 0.00 K/mm3 0.0-0.1 MANUAL DIFF REQUIRED (test code=MDIFF) NO, ONLY SCAN NEEDED DIFFERENTIAL [id number] 03:49:00* Test Item Value Reference Range Comments STAIN ACCEPTABILITY (test code=STN ACCEPTABLE) CABOT RINGS (test code=CAB) MORPHOLOGY COMMENT (test code=MOC) PLATELET ESTIMATE (test code=PLTEST) PLATELET MORPHOLOGY (test code=PLTMORPH) CBC W/AUTO [id number] 03:49:00* Test Item Value Reference Range Comments WHITE BLOOD CELL (test code=WBC) 10.8 K/mm3 4.5-12.5 RED BLOOD CELL (test code=RBC) 4.74 mill/mm3 3.7-5.2 HEMOGLOBIN (test code=HGB) 12.2 gram/dL 11.5-15.5 HEMATOCRIT (test code=HCT) 40.9 % 36.0-46.0 MEAN CELL VOLUME (test code=MCV) 86.3 fL 80-98 MEAN CELL HGB (test code=MCH) 25.7 picogram 27.0-33.0 MEAN CELL HGB CONCETRATION (test code=MCHC) 29.8 gram/dL 33.0-36.0 RED CELL DISTRIBUTION WIDTH (test code=RDW) 15.2 % 11.6-16.2 RED CELL DISTRIBUTION WIDTH SD (test code=RDW-SD) 48.2 fL 37.0-51.0 PLATELET COUNT (test code=PLT) 240 K/mm3 150-450 MEAN PLATELET VOLUME (test code=MPV) 9.7 fL 6.7-11.0 NEUTROPHIL % (test code=NT%) 91.8 % 39.0-69.0 IMMATURE GRANULOCYTE % (test code=IG%) 0.5 % 0.0-5.0 LYMPHOCYTE % (test code=LY%) 6.5 % 25.0-55.0 MONOCYTE % (test code=MO%) 1.0 % 0.0-10.0 EOSINOPHIL % (test code=EO%) 0.1 % 0.0-5.0 BASOPHIL % (test code=BA%) 0.1 % 0.0-1.0 NUCLEATED RBC % (test code=NRBC%) 0.0 % 0-0 NEUTROPHIL # (test code=NT#) 9.94 K/mm3 1.8-7.7 IMMATURE GRANULOCYTE # (test code=IG#) 0.05 x10 3/uL 0-0.03 LYMPHOCYTE # (test code=LY#) 0.70 K/mm3 1.0-5.0 MONOCYTE # (test code=MO#) 0.11 K/mm3 0-0.8 EOSINOPHIL # (test code=EO#) 0.01 K/mm3 0.0-0.5 BASOPHIL # (test code=BA#) 0.01 K/mm3 0.0-0.2 NUCLEATED RBC # (test code=NRBC#) 0.00 K/mm3 0.0-0.1 MANUAL DIFF REQUIRED (test code=MDIFF) NO, ONLY SCAN NEEDED DIFFERENTIAL [id number] 03:49:00* Test Item Value Reference Range Comments STAIN ACCEPTABILITY (test code=STN ACCEPTABLE) CABOT RINGS (test code=CAB) MORPHOLOGY COMMENT (test code=MOC) PLATELET ESTIMATE (test code=PLTEST) PLATELET MORPHOLOGY (test code=PLTMORPH) CBC W/AUTO [id number] 03:46:00* Test Item Value Reference Range Comments WHITE BLOOD CELL (test code=WBC) K/mm3 4.5-12.5 RED BLOOD CELL (test code=RBC) mill/mm3 3.7-5.2 HEMOGLOBIN (test code=HGB) 12.2 gram/dL 11.5-15.5 HEMATOCRIT (test code=HCT) 40.9 % 36.0-46.0 MEAN CELL VOLUME (test code=MCV) fL 80-98 MEAN CELL HGB (test code=MCH) picogram 27.0-33.0 MEAN CELL HGB CONCETRATION (test code=MCHC) gram/dL 33.0-36.0 RED CELL DISTRIBUTION WIDTH (test code=RDW) % 11.6-16.2 RED CELL DISTRIBUTION WIDTH SD (test code=RDW-SD) fL 37.0-51.0 PLATELET COUNT (test code=PLT) K/mm3 150-450 MEAN PLATELET VOLUME (test code=MPV) fL 6.7-11.0 NEUTROPHIL % (test code=NT%) % 39.0-69.0 IMMATURE GRANULOCYTE % (test code=IG%) % 0.0-5.0 LYMPHOCYTE % (test code=LY%) % 25.0-55.0 MONOCYTE % (test code=MO%) % 0.0-10.0 EOSINOPHIL % (test code=EO%) % 0.0-5.0 BASOPHIL % (test code=BA%) % 0.0-1.0 NEUTROPHIL # (test code=NT#) K/mm3 1.8-7.7 LYMPHOCYTE # (test code=LY#) K/mm3 1.0-5.0 MONOCYTE # (test code=MO#) K/mm3 0-0.8 EOSINOPHIL # (test code=EO#) K/mm3 0.0-0.5 BASOPHIL # (test code=BA#) K/mm3 0.0-0.2 COMPREHENSIVE METABOLIC [id number] 07:18:00* Test Item Value Reference Range Comments TOTAL PROTEIN (BEAKER) (test wazy=774) 5.6 gm/dL 6.0-8.3 ALBUMIN (BEAKER) (test hujb=6607) 3.2 g/dL 3.5-5.0 ALKALINE PHOSPHATASE (BEAKER) (test krpw=880) 77 U/L 40-150 BILIRUBIN TOTAL (BEAKER) (test zodl=738) 0.4 mg/dL 0.2-1.2 SODIUM (BEAKER) (test xfod=785) 141 meq/L 136-145 POTASSIUM (BEAKER) (test rhbl=088) 3.7 meq/L 3.5-5.1 CHLORIDE (BEAKER) (test pyaf=889) 106 meq/L 98-107 CO2 (BEAKER) (test oxvz=884) 27 meq/L 22-29 BLOOD UREA NITROGEN (BEAKER) (test hmux=554) 8 mg/dL 7-21 CREATININE (BEAKER) (test eckk=432) 0.79 mg/dL 0.57-1.25 GLUCOSE RANDOM (BEAKER) (test mydy=891) 91 mg/dL 70-105 CALCIUM (BEAKER) (test fhll=451) 8.3 mg/dL 8.4-10.2 AST (SGOT) (BEAKER) (test irfh=107) 15 U/L 5-34 ALT (SGPT) (BEAKER) (test tqgc=944) 17 U/L 6-55 EGFR (BEAKER) (test gqrq=4868) 78 mL/min/1.73 sq m ESTIMATED GFR IS NOT ACCURATE CREATININE CLEARANCE IN PREDICTING GLOMERULAR FILTRATION RATE. ESTIMATED GFR IS NOT APPLICABLE FOR DIALYSIS PATIENTS. TROPONIN [id number] 07:02:00* Test Item Value Reference Range Comments TROPONIN I (BEAKER) (test xtje=189) < ng/mL 0.00-0.03 Troponin I (TnI) levels must be interpreted in the context of the presenting sym ptoms and the clinical findings. Elevated TnI levels indicate myocardial damage, but are not specific for ischemic heart disease. Elevated TnI levels are seen in patients with other cardiac conditions (including myocarditis and congestive h eart failure), and slight TnI elevations occur in patients with other conditions , including sepsis, renal failure, acidosis, acute neurological disease, and per sistent tachyarrhythmia.CBC W/PLT COUNT & AUTO [id number] 06:35:00* Test Item Value Reference Range Comments WHITE BLOOD CELL COUNT (BEAKER) (test zzok=773) 6.7 K/ L 3.5-10.5 RED BLOOD CELL COUNT (BEAKER) (test fnir=862) 4.55 M/ L 3.93-5.22 HEMOGLOBIN (BEAKER) (test kfho=210) 12.0 GM/DL 11.2-15.7 HEMATOCRIT (BEAKER) (test dxyl=110) 40.7 % 34.1-44.9 MEAN CORPUSCULAR VOLUME (BEAKER) (test bxbs=057) 89.5 fL 79.4-94.8 MEAN CORPUSCULAR HEMOGLOBIN (BEAKER) (test yxlm=992) 26.4 pg 25.6-32.2 MEAN CORPUSCULAR HEMOGLOBIN CONC (BEAKER) (test tykc=904) 29.5 GM/DL 32.2-35.5 RED CELL DISTRIBUTION WIDTH (BEAKER) (test nsnx=667) 14.1 % 11.7-14.4 PLATELET COUNT (BEAKER) (test lvoz=392) 277 K/CU MM 150-450 MEAN PLATELET VOLUME (BEAKER) (test nnad=157) 8.9 fL 9.4-12.3 NUCLEATED RED BLOOD CELLS (BEAKER) (test warg=594) 0 /100 WBC 0-0 NEUTROPHILS RELATIVE PERCENT (BEAKER) (test spdb=488) 51 % LYMPHOCYTES RELATIVE PERCENT (BEAKER) (test uyzk=689) 34 % MONOCYTES RELATIVE PERCENT (BEAKER) (test wmqn=747) 11 % EOSINOPHILS RELATIVE PERCENT (BEAKER) (test opyf=922) 5 % BASOPHILS RELATIVE PERCENT (BEAKER) (test njqr=871) 0 % NEUTROPHILS ABSOLUTE COUNT (BEAKER) (test lwrw=909) 3.40 K/ L 1.56-6.13 LYMPHOCYTES ABSOLUTE COUNT (BEAKER) (test vokl=297) 2.26 K/ L 1.18-3.74 MONOCYTES ABSOLUTE COUNT (BEAKER) (test aryg=169) 0.71 K/ L 0.24-0.36 EOSINOPHILS ABSOLUTE COUNT (BEAKER) (test umbn=578) 0.30 K/ L 0.04-0.36 BASOPHILS ABSOLUTE COUNT (BEAKER) (test nfjb=874) 0.02 K/ L 0.01-0.08 IMMATURE GRANULOCYTES-RELATIVE PERCENT (BEAKER) (test dyzu=3686) 0 % 0-1 TROPONIN [id number] 01:21:00* Test Item Value Reference Range Comments TROPONIN I (BEAKER) (test piyi=531) < ng/mL 0.00-0.03 Troponin I (TnI) levels must be interpreted in the context of the presenting sym ptoms and the clinical findings. Elevated TnI levels indicate myocardial damage, but are not specific for ischemic heart disease. Elevated TnI levels are seen in patients with other cardiac conditions (including myocarditis and congestive h eart failure), and slight TnI elevations occur in patients with other conditions , including sepsis, renal failure, acidosis, acute neurological disease, and per sistent tachyarrhythmia.RAD, CHEST, 1 VIEW, NON [id number] 20:23:00Reason for exam:->CHEST PAINReason for exam:->EXTREMITY WEAKNESSIs the patient ?->UnknownFINAL REPORT Clinical History: CHEST PAINEXTREMITY WEAKNESS Comparison Study: July 25, 2017 Findings: The heart and lungs are within normal limits. A left Port-A-Cath is noted. The pleural spaces are clear. No significant bony or soft tissue abnormalities are seen. Impression: No active cardiopulmonary disease. Signed: Kelvin Lamas MDReport Verified Date/Time: 08/02/2018 20:23:28 Reading Location: [address] Consult Reading Room ALYSIS W/ REFLEX URINE [id number] 19:57:00* Test Item Value Reference Range Comments COLOR (BEAKER) (test uxsz=519) Brown CLARITY (BEAKER) (test jwtb=428) Hazy SPECIFIC GRAVITY UA (BEAKER) (test aynk=928) 1.024 1.001-1.035 PH UA (BEAKER) (test jazh=992) 5.5 5.0-8.0 PROTEIN UA (BEAKER) (test krth=586) 50 mg/dL Negative GLUCOSE UA (BEAKER) (test tzac=290) Negative Negative KETONES UA (BEAKER) (test cxui=957) Negative Negative BILIRUBIN UA (BEAKER) (test ccqo=314) Positive Negative BLOOD UA (BEAKER) (test qklr=523) Negative Negative NITRITE UA (BEAKER) (test pyvs=938) Positive Negative LEUKOCYTE ESTERASE UA (BEAKER) (test mjwn=676) Small Negative UROBILINOGEN UA (BEAKER) (test rkpd=386) 4.0 mg/dL 0.2-1.0 RBC UA (BEAKER) (test rqeq=822) 2 /HPF WBC UA (BEAKER) (test sfks=553) 44 /HPF BACTERIA (BEAKER) (test jlua=113) Rare MUCUS (BEAKER) (test qkmf=0146) Many SQUAMOUS EPITHELIAL (BEAKER) (test wjfp=459) 12 /HPF HYALINE CASTS (BEAKER) (test javx=345) 12 /LPF SOURCE(BEAKER) (test gpal=2563) B-TYPE NATRIURETIC FACTOR (BNP)2018-08-02 19:35:00* Test Item Value Reference Range Comments B-TYPE NATRIURETIC PEPTIDE (BEAKER) (test tvjr=999) < pg/mL 0-100 TROPONIN [id number] 19:09:00* Test Item Value Reference Range Comments TROPONIN I (BEAKER) (test pilv=539) < ng/mL 0.00-0.03 Troponin I (TnI) levels must be interpreted in the context of the presenting sym ptoms and the clinical findings. Elevated TnI levels indicate myocardial damage, but are not specific for ischemic heart disease. Elevated TnI levels are seen in patients with other cardiac conditions (including myocarditis and congestive h eart failure), and slight TnI elevations occur in patients with other conditions , including sepsis, renal failure, acidosis, acute neurological disease, and per sistent tachyarrhythmia.PT/[id number] 19:06:00* Test Item Value Reference Range Comments PROTIME (BEAKER) (test ksqe=019) 13.0 seconds 11.7-14.7 INR (BEAKER) (test fmmn=321) 1.0 <=5.9 PARTIAL THROMBOPLASTIN TIME (BEAKER) (test oayg=534) 141.8 seconds 22.5-36.0 RECOMMENDED COUMADIN/WARFARIN INR THERAPY RANGESSTANDARD DOSE: 2.0 - 3.0 Inclu jay: PROPHYLAXIS for venous thrombosis, systemic embolization; TREATMENT for misa ous thrombosis and/or pulmonary embolus.HIGH RISK: Target INR is 2.5-3.5 for pat ients with mechanical heart valves.[id number] 19:02:00* Test Item Value Reference Range Comments MAGNESIUM (BEAKER) (test smlj=784) 2.1 mg/dL 1.6-2.6 BASIC METABOLIC [id number] 19:02:00* Test Item Value Reference Range Comments SODIUM (BEAKER) (test zapt=151) 142 meq/L 136-145 POTASSIUM (BEAKER) (test vbkn=040) 3.6 meq/L 3.5-5.1 CHLORIDE (BEAKER) (test jcum=123) 105 meq/L 98-107 CO2 (BEAKER) (test axim=290) 25 meq/L 22-29 BLOOD UREA NITROGEN (BEAKER) (test yvvy=966) 8 mg/dL 7-21 CREATININE (BEAKER) (test qujx=698) 0.96 mg/dL 0.57-1.25 GLUCOSE RANDOM (BEAKER) (test uvqi=343) 104 mg/dL 70-105 CALCIUM (BEAKER) (test rggq=215) 9.1 mg/dL 8.4-10.2 EGFR (BEAKER) (test hbbg=2291) 63 mL/min/1.73 sq m ESTIMATED GFR IS NOT ACCURATE CREATININE CLEARANCE IN PREDICTING GLOMERULAR FILTRATION RATE. ESTIMATED GFR IS NOT APPLICABLE FOR DIALYSIS PATIENTS. CBC W/PLT COUNT & AUTO [id number] 18:46:00* Test Item Value Reference Range Comments WHITE BLOOD CELL COUNT (BEAKER) (test ynwt=451) 10.9 K/ L 3.5-10.5 RED BLOOD CELL COUNT (BEAKER) (test bepc=619) 4.94 M/ L 3.93-5.22 HEMOGLOBIN (BEAKER) (test oqgj=989) 13.4 GM/DL 11.2-15.7 HEMATOCRIT (BEAKER) (test etbq=706) 43.7 % 34.1-44.9 MEAN CORPUSCULAR VOLUME (BEAKER) (test sfmv=522) 88.5 fL 79.4-94.8 MEAN CORPUSCULAR HEMOGLOBIN (BEAKER) (test efdq=605) 27.1 pg 25.6-32.2 MEAN CORPUSCULAR HEMOGLOBIN CONC (BEAKER) (test vnux=659) 30.7 GM/DL 32.2-35.5 RED CELL DISTRIBUTION WIDTH (BEAKER) (test jmzt=859) 13.9 % 11.7-14.4 PLATELET COUNT (BEAKER) (test fbiu=649) 322 K/CU MM 150-450 MEAN PLATELET VOLUME (BEAKER) (test vmrz=519) 8.9 fL 9.4-12.3 NUCLEATED RED BLOOD CELLS (BEAKER) (test oobr=023) 0 /100 WBC 0-0 NEUTROPHILS RELATIVE PERCENT (BEAKER) (test dafr=512) 65 % LYMPHOCYTES RELATIVE PERCENT (BEAKER) (test fhhh=212) 24 % MONOCYTES RELATIVE PERCENT (BEAKER) (test hseo=737) 8 % EOSINOPHILS RELATIVE PERCENT (BEAKER) (test tpdu=324) 3 % BASOPHILS RELATIVE PERCENT (BEAKER) (test lsao=726) 0 % NEUTROPHILS ABSOLUTE COUNT (BEAKER) (test qesu=894) 7.05 K/ L 1.56-6.13 LYMPHOCYTES ABSOLUTE COUNT (BEAKER) (test iuut=468) 2.60 K/ L 1.18-3.74 MONOCYTES ABSOLUTE COUNT (BEAKER) (test mhmq=115) 0.89 K/ L 0.24-0.36 EOSINOPHILS ABSOLUTE COUNT (BEAKER) (test lkkw=769) 0.31 K/ L 0.04-0.36 BASOPHILS ABSOLUTE COUNT (BEAKER) (test ltpx=398) 0.03 K/ L 0.01-0.08 IMMATURE GRANULOCYTES-RELATIVE PERCENT (BEAKER) (test ylcf=6622) 0 % 0-1 CT, BRAIN/STROKE [id number] 17:44:00Reason for exam:->r/o strokeIs the patient ?->NoWhat is the patient's sedation requirement?->No Sedation FINAL REPORT CT, BRAIN/STROKE PROTOCOL CLINICAL INDICATIO N: Neuro deficit(s), subacuter/o stroke COMPARISON: None TECHNIQUE: Noncontras t axial CT imaging of the brain and skull. DOSE REDUCTION: Dose modulation, ite rative reconstruction, and/or weight-based adjustment of the mA/kV was utilized to reduce the radiation dose to as low as reasonably achievable. FINDINGS:No int racranial hemorrhage, midline shift or mass effect. Midline structures are jose lly developed. Mild chronic microvascular ischemic changes of the periventricula r and subcortical white matter are present. No hydrocephalus. Atherosclerotic ca lcification of the intracranial internal carotid and vertebral arteries.Orbits a re within normal limits.Prior bilateral lens surgery No obstructive paranasal si nus disease. IMPRESSION: No acute intracranial findings If there is persistent clinical concern for intracranial pathology, MR examination is recommended for f urther characterization. Signed: Eden Malone MDReport Verified Date/Time: 08/02/2018 17:44:17 Reading Location: [facility] Radiology Reading Room Elec tronically signed by: EDEN MALONE MD on 08/02/2018 05:44 PM [id number] 06:37:00* Test Item Value Reference Range Comments PHOSPHORUS (BEAKER) (test vdhq=897) 1.8 mg/dL 2.3-4.7 BASIC METABOLIC [id number] 06:37:00* Test Item Value Reference Range Comments SODIUM (BEAKER) (test gkzv=394) 141 meq/L 136-145 POTASSIUM (BEAKER) (test mtmm=729) 4.1 meq/L 3.5-5.1 CHLORIDE (BEAKER) (test wyhy=590) 107 meq/L 98-107 CO2 (BEAKER) (test sieu=451) 25 meq/L 22-29 BLOOD UREA NITROGEN (BEAKER) (test dppx=722) 8 mg/dL 7-21 CREATININE (BEAKER) (test qnqb=164) 0.83 mg/dL 0.57-1.25 GLUCOSE RANDOM (BEAKER) (test ngxm=977) 227 mg/dL 70-105 CALCIUM (BEAKER) (test onnw=467) 9.2 mg/dL 8.4-10.2 EGFR (BEAKER) (test beqc=2978) 74 mL/min/1.73 sq m ESTIMATED GFR IS NOT ACCURATE CREATININE CLEARANCE IN PREDICTING GLOMERULAR FILTRATION RATE. ESTIMATED GFR IS NOT APPLICABLE FOR DIALYSIS PATIENTS. HEPATIC FUNCTION [id number] 06:37:00* Test Item Value Reference Range Comments TOTAL PROTEIN (BEAKER) (test cbjv=410) 6.3 gm/dL 6.0-8.3 ALBUMIN (BEAKER) (test dles=9473) 3.5 g/dL 3.5-5.0 BILIRUBIN TOTAL (BEAKER) (test guaw=591) 0.2 mg/dL 0.2-1.2 BILIRUBIN DIRECT (BEAKER) (test aopx=198) 0.1 mg/dL 0.1-0.5 ALKALINE PHOSPHATASE (BEAKER) (test xxqt=458) 83 U/L 40-150 AST (SGOT) (BEAKER) (test cgrr=727) 10 U/L 5-34 ALT (SGPT) (BEAKER) (test dbvm=806) 12 U/L 6-55 [id number] 06:17:00* Test Item Value Reference Range Comments MAGNESIUM (BEAKER) (test lplg=348) 2.5 mg/dL 1.6-2.6 CBC W/PLT COUNT & AUTO [id number] 06:12:00* Test Item Value Reference Range Comments WHITE BLOOD CELL COUNT (BEAKER) (test ltxg=588) 7.0 K/ L 3.5-10.5 RED BLOOD CELL COUNT (BEAKER) (test jjyp=263) 4.95 M/ L 3.93-5.22 HEMOGLOBIN (BEAKER) (test vmai=226) 13.4 GM/DL 11.2-15.7 HEMATOCRIT (BEAKER) (test jpbn=983) 43.7 % 34.1-44.9 MEAN CORPUSCULAR VOLUME (BEAKER) (test zomb=569) 88.3 fL 79.4-94.8 MEAN CORPUSCULAR HEMOGLOBIN (BEAKER) (test qili=383) 27.1 pg 25.6-32.2 MEAN CORPUSCULAR HEMOGLOBIN CONC (BEAKER) (test vxwr=253) 30.7 GM/DL 32.2-35.5 RED CELL DISTRIBUTION WIDTH (BEAKER) (test noic=863) 13.4 % 11.7-14.4 PLATELET COUNT (BEAKER) (test duub=679) 249 K/CU MM 150-450 MEAN PLATELET VOLUME (BEAKER) (test tokr=792) 9.1 fL 9.4-12.3 NUCLEATED RED BLOOD CELLS (BEAKER) (test qkgg=293) 0 /100 WBC 0-0 NEUTROPHILS RELATIVE PERCENT (BEAKER) (test uyza=595) 90 % LYMPHOCYTES RELATIVE PERCENT (BEAKER) (test ilhk=017) 8 % MONOCYTES RELATIVE PERCENT (BEAKER) (test dvpj=262) 1 % EOSINOPHILS RELATIVE PERCENT (BEAKER) (test yeav=139) 0 % BASOPHILS RELATIVE PERCENT (BEAKER) (test ftvx=048) 0 % NEUTROPHILS ABSOLUTE COUNT (BEAKER) (test hrwj=619) 6.32 K/ L 1.56-6.13 LYMPHOCYTES ABSOLUTE COUNT (BEAKER) (test axcf=651) 0.53 K/ L 1.18-3.74 MONOCYTES ABSOLUTE COUNT (BEAKER) (test wyau=984) 0.04 K/ L 0.24-0.36 EOSINOPHILS ABSOLUTE COUNT (BEAKER) (test gdyb=565) 0.00 K/ L 0.04-0.36 BASOPHILS ABSOLUTE COUNT (BEAKER) (test cikd=547) 0.01 K/ L 0.01-0.08 IMMATURE GRANULOCYTES-RELATIVE PERCENT (BEAKER) (test ovzp=9227) 1 % 0-1 CREATINE KINASE (CK)2018-07-26 13:04:00* Test Item Value Reference Range Comments CREATINE KINASE TOTAL (BEAKER) (test wcwl=366) 18 U/L 29-200 TROPONIN [id number] 12:58:00* Test Item Value Reference Range Comments TROPONIN I (BEAKER) (test pnfl=556) < ng/mL 0.00-0.03 Troponin I (TnI) levels must be interpreted in the context of the presenting sym ptoms and the clinical findings. Elevated TnI levels indicate myocardial damage, but are not specific for ischemic heart disease. Elevated TnI levels are seen in patients with other cardiac conditions (including myocarditis and congestive h eart failure), and slight TnI elevations occur in patients with other conditions , including sepsis, renal failure, acidosis, acute neurological disease, and per sistent tachyarrhythmia.TSH/FREE T4 IF [id number] 05:33:00* Test Item Value Reference Range Comments THYROID STIMULATING HORMONE (BEAKER) (test rgpu=706) 2.69 uIU/mL 0.35-4.94 CREATINE KINASE (CK)2018-07-26 05:31:00* Test Item Value Reference Range Comments CREATINE KINASE TOTAL (BEAKER) (test whpm=657) 18 U/L 29-200 [id number] 05:29:00* Test Item Value Reference Range Comments PHOSPHORUS (BEAKER) (test fqpk=746) 3.1 mg/dL 2.3-4.7 [id number] 05:29:00* Test Item Value Reference Range Comments MAGNESIUM (BEAKER) (test ljzg=593) 2.2 mg/dL 1.6-2.6 BASIC METABOLIC [id number] 05:29:00* Test Item Value Reference Range Comments SODIUM (BEAKER) (test fnse=218) 143 meq/L 136-145 POTASSIUM (BEAKER) (test mkks=943) 3.3 meq/L 3.5-5.1 CHLORIDE (BEAKER) (test dagw=267) 107 meq/L 98-107 CO2 (BEAKER) (test anpe=141) 29 meq/L 22-29 BLOOD UREA NITROGEN (BEAKER) (test jbua=048) 9 mg/dL 7-21 CREATININE (BEAKER) (test mwhh=466) 0.78 mg/dL 0.57-1.25 GLUCOSE RANDOM (BEAKER) (test uhjl=116) 114 mg/dL 70-105 CALCIUM (BEAKER) (test oiif=744) 8.6 mg/dL 8.4-10.2 EGFR (BEAKER) (test mymt=8045) 80 mL/min/1.73 sq m ESTIMATED GFR IS NOT ACCURATE CREATININE CLEARANCE IN PREDICTING GLOMERULAR FILTRATION RATE. ESTIMATED GFR IS NOT APPLICABLE FOR DIALYSIS PATIENTS. HEPATIC FUNCTION [id number] 05:29:00* Test Item Value Reference Range Comments TOTAL PROTEIN (BEAKER) (test chwy=675) 5.6 gm/dL 6.0-8.3 ALBUMIN (BEAKER) (test xmac=5838) 3.2 g/dL 3.5-5.0 BILIRUBIN TOTAL (BEAKER) (test joff=239) 0.3 mg/dL 0.2-1.2 BILIRUBIN DIRECT (BEAKER) (test sugi=682) 0.2 mg/dL 0.1-0.5 ALKALINE PHOSPHATASE (BEAKER) (test yvxt=761) 74 U/L 40-150 AST (SGOT) (BEAKER) (test rveh=552) 10 U/L 5-34 ALT (SGPT) (BEAKER) (test erer=874) 9 U/L 6-55 C-REACTIVE [id number] 05:29:00* Test Item Value Reference Range Comments C-REACTIVE PROTEIN (BEAKER) (test nzwz=090) 2.21 mg/dL 0.00-0.50 TROPONIN [id number] 05:28:00* Test Item Value Reference Range Comments TROPONIN I (BEAKER) (test jbqs=090) < ng/mL 0.00-0.03 Troponin I (TnI) levels must be interpreted in the context of the presenting sym ptoms and the clinical findings. Elevated TnI levels indicate myocardial damage, but are not specific for ischemic heart disease. Elevated TnI levels are seen in patients with other cardiac conditions (including myocarditis and congestive h eart failure), and slight TnI elevations occur in patients with other conditions , including sepsis, renal failure, acidosis, acute neurological disease, and per sistent tachyarrhythmia.CBC W/PLT COUNT & AUTO [id number] 05:00:00* Test Item Value Reference Range Comments WHITE BLOOD CELL COUNT (BEAKER) (test icnm=184) 8.0 K/ L 3.5-10.5 RED BLOOD CELL COUNT (BEAKER) (test azkv=727) 4.41 M/ L 3.93-5.22 HEMOGLOBIN (BEAKER) (test kvin=841) 12.1 GM/DL 11.2-15.7 HEMATOCRIT (BEAKER) (test lhua=272) 38.5 % 34.1-44.9 MEAN CORPUSCULAR VOLUME (BEAKER) (test zrbv=435) 87.3 fL 79.4-94.8 MEAN CORPUSCULAR HEMOGLOBIN (BEAKER) (test oljr=384) 27.4 pg 25.6-32.2 MEAN CORPUSCULAR HEMOGLOBIN CONC (BEAKER) (test kkbi=980) 31.4 GM/DL 32.2-35.5 RED CELL DISTRIBUTION WIDTH (BEAKER) (test vymt=788) 13.5 % 11.7-14.4 PLATELET COUNT (BEAKER) (test tudz=939) 242 K/CU MM 150-450 MEAN PLATELET VOLUME (BEAKER) (test opsz=327) 9.3 fL 9.4-12.3 NUCLEATED RED BLOOD CELLS (BEAKER) (test dazx=869) 0 /100 WBC 0-0 NEUTROPHILS RELATIVE PERCENT (BEAKER) (test ruie=262) 60 % LYMPHOCYTES RELATIVE PERCENT (BEAKER) (test mpvu=882) 31 % MONOCYTES RELATIVE PERCENT (BEAKER) (test xzxs=414) 6 % EOSINOPHILS RELATIVE PERCENT (BEAKER) (test pyir=332) 3 % BASOPHILS RELATIVE PERCENT (BEAKER) (test oqry=060) 0 % NEUTROPHILS ABSOLUTE COUNT (BEAKER) (test ofbd=122) 4.81 K/ L 1.56-6.13 LYMPHOCYTES ABSOLUTE COUNT (BEAKER) (test ngzd=987) 2.44 K/ L 1.18-3.74 MONOCYTES ABSOLUTE COUNT (BEAKER) (test fjle=248) 0.44 K/ L 0.24-0.36 EOSINOPHILS ABSOLUTE COUNT (BEAKER) (test jfam=668) 0.27 K/ L 0.04-0.36 BASOPHILS ABSOLUTE COUNT (BEAKER) (test ipni=459) 0.02 K/ L 0.01-0.08 IMMATURE GRANULOCYTES-RELATIVE PERCENT (BEAKER) (test rtyu=1994) 0 % 0-1 POCT-GLUCOSE [id number] 07:30:00* Test Item Value Reference Range Comments POC-GLUCOSE METER (BEAKER) (test lkiy=1604) 150 mg/dL 70-110 TESTED AT [facility] [address] [facility] [address] CBC W/PLT COUNT & AUTO [id number] 06:12:00* Test Item Value Reference Range Comments WHITE BLOOD CELL COUNT (BEAKER) (test wqiy=793) 8.1 K/ L 3.5-10.5 RED BLOOD CELL COUNT (BEAKER) (test wzrm=494) 4.74 M/ L 3.93-5.22 HEMOGLOBIN (BEAKER) (test sycf=540) 13.0 GM/DL 11.2-15.7 HEMATOCRIT (BEAKER) (test wmkm=142) 41.8 % 34.1-44.9 MEAN CORPUSCULAR VOLUME (BEAKER) (test imwq=906) 88.2 fL 79.4-94.8 MEAN CORPUSCULAR HEMOGLOBIN (BEAKER) (test mwrg=005) 27.4 pg 25.6-32.2 MEAN CORPUSCULAR HEMOGLOBIN CONC (BEAKER) (test qjdx=360) 31.1 GM/DL 32.2-35.5 RED CELL DISTRIBUTION WIDTH (BEAKER) (test kcpg=372) 13.4 % 11.7-14.4 PLATELET COUNT (BEAKER) (test bsti=784) 250 K/CU MM 150-450 MEAN PLATELET VOLUME (BEAKER) (test lwuc=614) 8.9 fL 9.4-12.3 NUCLEATED RED BLOOD CELLS (BEAKER) (test djng=437) 0 /100 WBC 0-0 NEUTROPHILS RELATIVE PERCENT (BEAKER) (test kgmn=159) 89 % LYMPHOCYTES RELATIVE PERCENT (BEAKER) (test jlon=296) 9 % MONOCYTES RELATIVE PERCENT (BEAKER) (test mknd=024) 1 % EOSINOPHILS RELATIVE PERCENT (BEAKER) (test zrcz=419) 0 % BASOPHILS RELATIVE PERCENT (BEAKER) (test svdg=073) 0 % NEUTROPHILS ABSOLUTE COUNT (BEAKER) (test fpxl=234) 7.27 K/ L 1.56-6.13 LYMPHOCYTES ABSOLUTE COUNT (BEAKER) (test eiis=387) 0.72 K/ L 1.18-3.74 MONOCYTES ABSOLUTE COUNT (BEAKER) (test wjki=826) 0.05 K/ L 0.24-0.36 EOSINOPHILS ABSOLUTE COUNT (BEAKER) (test hcdq=374) 0.01 K/ L 0.04-0.36 BASOPHILS ABSOLUTE COUNT (BEAKER) (test hgst=953) 0.01 K/ L 0.01-0.08 IMMATURE GRANULOCYTES-RELATIVE PERCENT (BEAKER) (test btyb=7686) 1 % 0-1 BASIC METABOLIC [id number] 05:24:00* Test Item Value Reference Range Comments SODIUM (BEAKER) (test kdio=428) 142 meq/L 136-145 POTASSIUM (BEAKER) (test jzco=248) 3.9 meq/L 3.5-5.1 CHLORIDE (BEAKER) (test lnvo=099) 109 meq/L 98-107 CO2 (BEAKER) (test hogk=450) 26 meq/L 22-29 BLOOD UREA NITROGEN (BEAKER) (test kmsy=257) 10 mg/dL 7-21 CREATININE (BEAKER) (test rull=464) 0.88 mg/dL 0.57-1.25 GLUCOSE RANDOM (BEAKER) (test aumq=773) 160 mg/dL 70-105 CALCIUM (BEAKER) (test ayyi=715) 8.6 mg/dL 8.4-10.2 EGFR (BEAKER) (test xtxt=0111) 69 mL/min/1.73 sq m ESTIMATED GFR IS NOT ACCURATE CREATININE CLEARANCE IN PREDICTING GLOMERULAR FILTRATION RATE. ESTIMATED GFR IS NOT APPLICABLE FOR DIALYSIS PATIENTS. POCT-GLUCOSE [id number] 21:15:00* Test Item Value Reference Range Comments POC-GLUCOSE METER (BEAKER) (test dfta=5973) 135 mg/dL 70-110 TESTED AT [address] [address] TISSUE [id number] 08:41:00Surgical Pathology Report Case: [id number] Authorizing Provider: Maikol Benitez, Collected: 07/19/2018 1008 MD Ordering Location: [address] Received: 07/19/2018 5964 Service Pathologist: Berlin Venegas MD Specimens: A) - Duodenum, Bx, r/o Celiac B) - Biopsy, Gastric, Bx, r/o H Pylori C) - Biopsy, Mid-esophagus, Bx, R/o EOE PART A DUODENAL BIOPSY:SMALL INTESTINAL MUCOSA WITH GASTRIC METAPLASIA.THE VILLOUS ARCHITECTURE IS PRESERVED.NO GRANULOMAS, ULCERATION, DYSPLASIA, OR INVASIVE CARCINOMA SEEN.SEE DIAGNOSTIC COMMENT.PART B GASTRIC BIOPSY:FOCALLY ACTIVE CHRONIC GASTRITIS.WARTHIN STARRY STAIN FOR HELICOBACTER IS NEGATIVE.PART C MID-ESOPHAGEAL BIOPSY:SQUAMOUS MUCOSA WITH MILD REACTIVE CHANGES.NEGATIVE FOR INCREASED EOSINOPHILS, DYSPLASIA, OR INVASIVE CARCINOMA. Signing Pathologist Direct Phone Line: [phone] signed by Berlin Venegas MD on 07/20/2018 at 8:41 AMThe finding of gastric metaplasia within the duodenal mucosa is consistent with peptic duodenitis in the appropriate clinical setting.[id number], [id number] and vomiting, rule out celiac, rule out H. Pylori, rule out EOEA. Du odenum biopsy. B. Gastric biopsy. C. Mid esophagus biopsy Specimens are received in three containers of formalin all labeled with the patient's information. Spe cimen A: Labeled "duodenum biopsy" consists of multiple fragments of mcneill tissue ranging from less than 0.1 to 0.3 cm, submitted entirely in A1. Specimen B: Labe led "gastric biopsy" consists of multiple fragments of mcneill tissue ranging from 0 .1 to 0.3 cm, submitted entirely in B1. Specimen C: Labeled "mid esophagus" cons ists of three fragments of off-white tissue ranging from less than 0.1 and 0.6 c m, submitted entirely in C1. CG/ew PERFORMED. The interpretation of this case in cluded the use of immunohistochemistry or special stains. BLOCK B1- WARTHIN STAR RYImmunohistochemistry technical testing was performed at [facility], Pathology Laboratory where it was developed and its performance martín acteristics were determined. It has not been cleared or approved by the [place] d and Drug Administration. The FDA has determined that such clearance or approva l is not necessary. The test is used for clinical purposes. It should not be reg arded as investigational or for research. This laboratory is certified under the Clinical Laboratory Improvement Amendments of 1988 (CLIA-88) as qualified to bannerorm high complexity clinical laboratory testing.BASIC METABOLIC PANEL 2018-07-20 06:02:00* Test Item Value Reference Range Comments SODIUM (BEAKER) (test akcg=325) 142 meq/L 136-145 POTASSIUM (BEAKER) (test aqhz=186) 3.6 meq/L 3.5-5.1 CHLORIDE (BEAKER) (test xkii=287) 109 meq/L 98-107 CO2 (BEAKER) (test bhhw=261) 25 meq/L 22-29 BLOOD UREA NITROGEN (BEAKER) (test xzao=214) 9 mg/dL 7-21 CREATININE (BEAKER) (test hbqc=128) 0.80 mg/dL 0.57-1.25 GLUCOSE RANDOM (BEAKER) (test kmhi=375) 121 mg/dL 70-105 CALCIUM (BEAKER) (test wrqd=284) 8.2 mg/dL 8.4-10.2 EGFR (BEAKER) (test sggx=9340) 77 mL/min/1.73 sq m ESTIMATED GFR IS NOT ACCURATE CREATININE CLEARANCE IN PREDICTING GLOMERULAR FILTRATION RATE. ESTIMATED GFR IS NOT APPLICABLE FOR DIALYSIS PATIENTS. CBC W/PLT COUNT & AUTO [id number] 05:15:00* Test Item Value Reference Range Comments WHITE BLOOD CELL COUNT (BEAKER) (test krwb=994) 14.1 K/ L 3.5-10.5 RED BLOOD CELL COUNT (BEAKER) (test whea=904) 4.39 M/ L 3.93-5.22 HEMOGLOBIN (BEAKER) (test kalh=413) 12.1 GM/DL 11.2-15.7 HEMATOCRIT (BEAKER) (test ikqk=588) 38.9 % 34.1-44.9 MEAN CORPUSCULAR VOLUME (BEAKER) (test gvxf=052) 88.6 fL 79.4-94.8 MEAN CORPUSCULAR HEMOGLOBIN (BEAKER) (test ffdp=759) 27.6 pg 25.6-32.2 MEAN CORPUSCULAR HEMOGLOBIN CONC (BEAKER) (test smka=146) 31.1 GM/DL 32.2-35.5 RED CELL DISTRIBUTION WIDTH (BEAKER) (test empx=363) 13.4 % 11.7-14.4 PLATELET COUNT (BEAKER) (test pnio=587) 286 K/CU MM 150-450 MEAN PLATELET VOLUME (BEAKER) (test eemh=246) 8.8 fL 9.4-12.3 NUCLEATED RED BLOOD CELLS (BEAKER) (test zpvy=888) 0 /100 WBC 0-0 NEUTROPHILS RELATIVE PERCENT (BEAKER) (test dqls=232) 83 % LYMPHOCYTES RELATIVE PERCENT (BEAKER) (test jtrf=177) 11 % MONOCYTES RELATIVE PERCENT (BEAKER) (test svys=515) 6 % EOSINOPHILS RELATIVE PERCENT (BEAKER) (test nkkl=399) 0 % BASOPHILS RELATIVE PERCENT (BEAKER) (test wprg=007) 0 % NEUTROPHILS ABSOLUTE COUNT (BEAKER) (test xicv=185) 11.65 K/ L 1.56-6.13 LYMPHOCYTES ABSOLUTE COUNT (BEAKER) (test nnqn=984) 1.55 K/ L 1.18-3.74 MONOCYTES ABSOLUTE COUNT (BEAKER) (test oezi=148) 0.81 K/ L 0.24-0.36 EOSINOPHILS ABSOLUTE COUNT (BEAKER) (test ifjm=167) 0.02 K/ L 0.04-0.36 BASOPHILS ABSOLUTE COUNT (BEAKER) (test vgdz=130) 0.01 K/ L 0.01-0.08 IMMATURE GRANULOCYTES-RELATIVE PERCENT (BEAKER) (test mclm=1792) 1 % 0-1 CT, BRAIN, WITHOUT [id number] 22:59:00New left arm and leg weakness with associated numbness/decreased sensation in the region. Last normal 22:00.FINAL REPORT CT, BRAIN, WITHOUT CONTRAST CLINICAL INDICATION: Focal neuro deficit, new, fixed or worsening, <6 hours COMPARISON: None TECHNIQUE: Noncontrast axial CT imaging of the brain and skull. DOSE REDUCTION: Dose modulation, iterative reconstruction, and/or weight-based adjustment of the mA/kV was utilized to reduce the radiation dose to as low as reasonably achievable. FINDINGS:No intracranial hemorrhage, midline shift or mass effect. Midline structures are normally developed. Mild chronic micro vascular ischemic changes of the periventricular and subcortical white matter ar e present. No hydrocephalus. Orbits are within normal limits. Prior bilateral le ns surgery. No obstructive paranasal sinus disease. Right maxillary sinus mucus retention cyst. Incidental note is made of hyperostosis interna frontalis. IMPR ESSION: No acute intracranial findings If there is persistent clinical concern f or intracranial pathology, MR examination is recommended for further characteriz ation. Signed: Eden Malone MDReport Verified Date/Time: 07/19/2018 22:59:48 Reading Location: [facility] Neuro Reading Room -GLUCOSE [id number] 22:27:00* Test Item Value Reference Range Comments POC-GLUCOSE METER (BEAKER) (test rmte=9467) 156 mg/dL 70-110 TESTED AT [facility] [address] [place] [address] BASIC METABOLIC [id number] 05:08:00* Test Item Value Reference Range Comments SODIUM (BEAKER) (test vdmt=535) 142 meq/L 136-145 POTASSIUM (BEAKER) (test jtzz=195) 3.5 meq/L 3.5-5.1 CHLORIDE (BEAKER) (test brzh=008) 109 meq/L 98-107 CO2 (BEAKER) (test sqov=309) 24 meq/L 22-29 BLOOD UREA NITROGEN (BEAKER) (test xgez=448) 5 mg/dL 7-21 CREATININE (BEAKER) (test pixx=354) 0.79 mg/dL 0.57-1.25 GLUCOSE RANDOM (BEAKER) (test kkof=132) 76 mg/dL 70-105 CALCIUM (BEAKER) (test tsoo=056) 8.1 mg/dL 8.4-10.2 EGFR (BEAKER) (test fznj=8165) 78 mL/min/1.73 sq m ESTIMATED GFR IS NOT ACCURATE CREATININE CLEARANCE IN PREDICTING GLOMERULAR FILTRATION RATE. ESTIMATED GFR IS NOT APPLICABLE FOR DIALYSIS PATIENTS. CBC W/PLT COUNT & AUTO [id number] 04:34:00* Test Item Value Reference Range Comments WHITE BLOOD CELL COUNT (BEAKER) (test jkmi=344) 7.4 K/ L 3.5-10.5 RED BLOOD CELL COUNT (BEAKER) (test wnng=870) 4.29 M/ L 3.93-5.22 HEMOGLOBIN (BEAKER) (test ntru=007) 11.6 GM/DL 11.2-15.7 HEMATOCRIT (BEAKER) (test zlwf=437) 38.1 % 34.1-44.9 MEAN CORPUSCULAR VOLUME (BEAKER) (test ozhu=757) 88.8 fL 79.4-94.8 MEAN CORPUSCULAR HEMOGLOBIN (BEAKER) (test ofei=250) 27.0 pg 25.6-32.2 MEAN CORPUSCULAR HEMOGLOBIN CONC (BEAKER) (test zhak=802) 30.4 GM/DL 32.2-35.5 RED CELL DISTRIBUTION WIDTH (BEAKER) (test npdx=208) 13.8 % 11.7-14.4 PLATELET COUNT (BEAKER) (test sioj=171) 254 K/CU MM 150-450 MEAN PLATELET VOLUME (BEAKER) (test izyf=428) 9.1 fL 9.4-12.3 NUCLEATED RED BLOOD CELLS (BEAKER) (test xxgf=852) 0 /100 WBC 0-0 NEUTROPHILS RELATIVE PERCENT (BEAKER) (test pxcv=658) 64 % LYMPHOCYTES RELATIVE PERCENT (BEAKER) (test skdx=079) 27 % MONOCYTES RELATIVE PERCENT (BEAKER) (test kvcv=400) 7 % EOSINOPHILS RELATIVE PERCENT (BEAKER) (test mqoe=880) 2 % BASOPHILS RELATIVE PERCENT (BEAKER) (test hpyj=132) 0 % NEUTROPHILS ABSOLUTE COUNT (BEAKER) (test qxvo=019) 4.67 K/ L 1.56-6.13 LYMPHOCYTES ABSOLUTE COUNT (BEAKER) (test npcj=230) 2.00 K/ L 1.18-3.74 MONOCYTES ABSOLUTE COUNT (BEAKER) (test ixlx=672) 0.49 K/ L 0.24-0.36 EOSINOPHILS ABSOLUTE COUNT (BEAKER) (test zvde=154) 0.15 K/ L 0.04-0.36 BASOPHILS ABSOLUTE COUNT (BEAKER) (test ltni=314) 0.03 K/ L 0.01-0.08 IMMATURE GRANULOCYTES-RELATIVE PERCENT (BEAKER) (test lzqn=9300) 0 % 0-1 C. DIFFICILE GDH [id number] 13:28:00* Test Item Value Reference Range Comments CDT TOXIN (test jyhn=[id number]) Negative Negative CDT GDH ANTIGEN (test eyrf=[id number]) Negative Negative No indication of Clostridium difficile infection and no colonization. Discontinue enteric isolation and therapy. Testing performed by [employer] Rapid Cassette Assay. For GDH, published sensitivity of the assay is 98.7% compared to cytotoxicity testing. For Toxin AB, published sensitivity is 87.8% and specificity 99.4% compared to cytotoxicity testing.Ve rification of kit performance was done by the [facility] Microbiology Lab prior to cl inical use.[id number] 07:14:00* Test Item Value Reference Range Comments LIPASE (BEAKER) (test kthk=120) 11 U/L 8-78 HEPATIC FUNCTION [id number] 07:14:00* Test Item Value Reference Range Comments TOTAL PROTEIN (BEAKER) (test mdis=343) 5.4 gm/dL 6.0-8.3 ALBUMIN (BEAKER) (test sdwc=8798) 3.1 g/dL 3.5-5.0 BILIRUBIN TOTAL (BEAKER) (test mbra=465) 0.3 mg/dL 0.2-1.2 BILIRUBIN DIRECT (BEAKER) (test wozd=613) 0.1 mg/dL 0.1-0.5 ALKALINE PHOSPHATASE (BEAKER) (test juvk=479) 68 U/L 40-150 AST (SGOT) (BEAKER) (test hcqs=921) 12 U/L 5-34 ALT (SGPT) (BEAKER) (test aukj=588) 11 U/L 6-55 CBC W/PLT COUNT & AUTO [id number] 07:01:00* Test Item Value Reference Range Comments WHITE BLOOD CELL COUNT (BEAKER) (test lwpj=781) 8.3 K/ L 3.5-10.5 RED BLOOD CELL COUNT (BEAKER) (test aauq=195) 4.17 M/ L 3.93-5.22 HEMOGLOBIN (BEAKER) (test nimb=065) 11.5 GM/DL 11.2-15.7 HEMATOCRIT (BEAKER) (test uxrt=703) 36.6 % 34.1-44.9 MEAN CORPUSCULAR VOLUME (BEAKER) (test yiod=502) 87.8 fL 79.4-94.8 MEAN CORPUSCULAR HEMOGLOBIN (BEAKER) (test mkiw=214) 27.6 pg 25.6-32.2 MEAN CORPUSCULAR HEMOGLOBIN CONC (BEAKER) (test lrnl=541) 31.4 GM/DL 32.2-35.5 RED CELL DISTRIBUTION WIDTH (BEAKER) (test ycml=766) 13.8 % 11.7-14.4 PLATELET COUNT (BEAKER) (test oelc=319) 246 K/CU MM 150-450 MEAN PLATELET VOLUME (BEAKER) (test ltyu=189) 9.0 fL 9.4-12.3 NUCLEATED RED BLOOD CELLS (BEAKER) (test rvta=733) 0 /100 WBC 0-0 NEUTROPHILS RELATIVE PERCENT (BEAKER) (test hkcx=053) 68 % LYMPHOCYTES RELATIVE PERCENT (BEAKER) (test avmx=334) 23 % MONOCYTES RELATIVE PERCENT (BEAKER) (test cfig=802) 7 % EOSINOPHILS RELATIVE PERCENT (BEAKER) (test goqm=387) 2 % BASOPHILS RELATIVE PERCENT (BEAKER) (test xcsi=282) 0 % NEUTROPHILS ABSOLUTE COUNT (BEAKER) (test dstr=533) 5.60 K/ L 1.56-6.13 LYMPHOCYTES ABSOLUTE COUNT (BEAKER) (test uqko=308) 1.92 K/ L 1.18-3.74 MONOCYTES ABSOLUTE COUNT (BEAKER) (test iyac=654) 0.57 K/ L 0.24-0.36 EOSINOPHILS ABSOLUTE COUNT (BEAKER) (test hche=437) 0.14 K/ L 0.04-0.36 BASOPHILS ABSOLUTE COUNT (BEAKER) (test krqp=695) 0.02 K/ L 0.01-0.08 IMMATURE GRANULOCYTES-RELATIVE PERCENT (BEAKER) (test wbfb=5692) 0 % 0-1 [id number] 06:19:00* Test Item Value Reference Range Comments PHOSPHORUS (BEAKER) (test piom=420) 3.8 mg/dL 2.3-4.7 [id number] 06:19:00* Test Item Value Reference Range Comments MAGNESIUM (BEAKER) (test lcfy=134) 1.8 mg/dL 1.6-2.6 BASIC METABOLIC [id number] 06:19:00* Test Item Value Reference Range Comments SODIUM (BEAKER) (test yeeg=870) 146 meq/L 136-145 POTASSIUM (BEAKER) (test rail=870) 3.2 meq/L 3.5-5.1 CHLORIDE (BEAKER) (test ykkt=220) 113 meq/L 98-107 CO2 (BEAKER) (test jhbv=935) 25 meq/L 22-29 BLOOD UREA NITROGEN (BEAKER) (test ndju=902) 6 mg/dL 7-21 CREATININE (BEAKER) (test oqbh=885) 0.77 mg/dL 0.57-1.25 GLUCOSE RANDOM (BEAKER) (test pbvn=045) 74 mg/dL 70-105 CALCIUM (BEAKER) (test nzyo=949) 8.3 mg/dL 8.4-10.2 EGFR (BEAKER) (test hxqt=9760) 81 mL/min/1.73 sq m ESTIMATED GFR IS NOT ACCURATE CREATININE CLEARANCE IN PREDICTING GLOMERULAR FILTRATION RATE. ESTIMATED GFR IS NOT APPLICABLE FOR DIALYSIS PATIENTS. - MRI BRAIN W/O [id number] 20:02:00 FAX: Justine Diaz MD [phone] [place]: St: ADM FAX: Shady James [phone] Name: SARITHA ROBERTS [facility] : 1970 Age/S: 48/F [address] [facility] Unit #: [id number] Loc: [place] [address] Phys: Justine Main MD Acct: [id number] Dis Date: Status: ADM IN PHONE #: [phone] Exam Date: 07/06/20181924 FAX #: [phone] Reason: L sided weakness EXAMS: CPT CODE: [id number] MRI BRAIN W/O CONTRAST [id number] REASON FOR EXAM: L sided weakness Exam Order Date: 07/06/2018 1:21 PM Attending Rosanne: Justine Main MD Procedure: - MRI BRAIN W/O CONTRAST Comparison: F INDINGS: Axial, sagittal, and coronal images of the head were obtained usi ng T1, T2 weighted, inversion recovery, and gradient echo sequences. The diffusion images are within normal limits without evidence of acute infarc t. No IV gadolinium was given. The sagittal images show normal pit uitary, cerebellum, and brain stem. No evidence of suprasellar mass. The axial T2, inversion recovery, and gradient echo images show no evidence of intra or extra axial mass. The ventricles, cisterns, and sulci are unremarkable. No evidence of hemorrhage. The cerebellar isi melissa angle area is within normal limits. There is no evidence of mass note d. The axial T1 images show no evidence of mass. The coronal images show normal optic chiasm. 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 No acute findings. at 2002 Reported and signed by: Kaushal New M.D. CC: Justine Main MD; Shady James MD Technologist: Harley Bentley)(MR) Trnscrd Date/Time/By: 07/06/2018 (2001) : By: MachoVTL Orig Print D/T: S: 07/06/2018 (2004) PAGE 1 Signed Report LIPID PROFILE (CORONARY RISK)2018-07-06 02:04:00* Test Item Value Reference Range Comments TRIGLYCERIDES (test code=TRIG) 80 mg/dL 20-150 CHOLESTEROL (test code=CHOL) 251 mg/dL 0-200 CHOLESTEROL/HDL RATIO (test code=CHOLHDL) 3.0 RATIO 0-4.9 RISK ASSOCIATED WITH CHOL/HDL RATIOS: Risk Male Female1/2 AVERAGE 3.43 3.27AVERAGE 4.97 4.442X AVERAGE 9.55 7.053X AVERAGE 23.39 11.04 REFERENCE VALUE IS RELATED TO RISK LEVELS ASRECOMMENDED BY THE SANKET. HEART, LUNG, AND BLOOD INST. HDL CHOLESTEROL (test code=HDL) 78 mg/dL 40-60 LIPOPROTEIN LDL (test code=LDL) 160 mg/dL 100-129 RN PERSONNEL, CONTACT PHYSICIAN IMMEDIATELY IF THIS IS A STROKE, AMI OR CAROTID STENOSIS PATIENT WHEN THE LDL >100 (1ST OCCURENCE, THIS ADMISSION) Reference Interval: mg/dL mmol/L Optimal <100 <2.6Near/above optimal 100-129 2.6- 3.3Borderline High 130-159 3.4-4.1High 160-189 4.1-4.9Very High >=190 >=4.9=========This LDL result is a direct measurement.========= [id number] 01:58:00* Test Item Value Reference Range Comments GLYCOSYLATED HEMOGLOBIN (HA1C) (test code=GLYHGB) 5.5 % HbA1 4.8-6.0 ESTIMATED AVERAGE GLUCOSE (test code=EAG) 111 MG/DL COMPREHENSIVE METABOLIC [id number] 20:46:00* Test Item Value Reference Range Comments SODIUM (test code=NA) 144 mmol/L 136-145 POTASSIUM (test code=K) 3.7 mmol/L 3.5-5.1 CHLORIDE (test code=CL) 109.0 mmol/L 98-107 CARBON DIOXIDE (test code=CO2) 25.0 mmol/L 21-32 ANION GAP (test code=GAP) 13.7 10-20 GLUCOSE (test code=GLU) 151 mg/dL 74-106 BLOOD UREA NITROGEN (test code=BUN) 7 mg/dL 7-18 GLOMERULAR FILTRATION RATE (test code=GFR) 60 mL/min >=60 Estimated GFR by using Modified MDRD formula.Chronic kidney disease is defined as either kidney damageor GFR <60 mL/min/1.73 m2 for >3 months. CREATININE (test code=CREAT) 1.00 mg/dL 0.55-1.02 Note change in reference range due to change in reagent. BUN/CREATININE RATIO (test code=BUN/CREA) 7.4 10-20 TOTAL PROTEIN (test code=PROT) 7.0 gram/dL 6.4-8.2 ALBUMIN (test code=ALB) 3.0 g/dL 3.4-5.0 GLOBULIN (test code=GLOB) 4.0 gram/dL 2.7-4.2 ALBUMIN/GLOBULIN RATIO (test code=A/G) 0.8 0.75-1.50 CALCIUM (test code=CA) 8.5 mg/dL 8.5-10.1 BILIRUBIN TOTAL (test code=BILT) 0.20 mg/dL 0.0-1.0 SGOT/AST (test code=AST) 28 IUnit/L 15-37 SGPT/ALT (test code=ALT) 24 IUnit/L 12-78 ALKALINE PHOSPHATASE TOTAL (test code=ALKP) 99 IUnit/L 45-117 Note change in reference range due to change in reagent. [id number] 20:46:00* Test Item Value Reference Range Comments PHOSPHORUS (test code=PHOS) 1.6 mg/dL 2.5-4.9 [id number] 20:46:00* Test Item Value Reference Range Comments MAGNESIUM (test code=MAG) 2.2 mg/dL 1.8-2.4 - CT HEAD/BRAIN W/O [id number] 20:44:00 Name: SARITHA ROBERTS [facility] : 1970 Age/S: 48 / F [address] Unit #: [id number] Loc: [place] [address] Phys: Cole Hutchinson MD Acct: [id number] Dis Date: Status: ADM IN PHONE #: [phone] Exam Date: 07/05/20182039 FAX #: [phone] Reason: LEFT-SIDED WEAKNESS EXAMS: CPT CODE: [id number] CT HEAD/BRAIN W/O CONT [id number] REASON FOR EXAM: LEFT-SIDED WEAKNESS EXAM ORDER DATE: 07/05/2018 8:16 PM Ordering M.Varun: Cole Hutchinson MD PROCEDURE: - CT HEAD/BRAIN W/O CONT COMPARISON: 03/15/2018 FINDINGS: CT images of the brain were obtained without IV contrast. Dose reduction techniques were applied. The brain parenchyma is within normal limits. The mclaughlin-white matter delineation is unremarkable. The ventricles, cisterns, and sulci are unremarkable. There is no evidence of hemorrhage, mass, mass effect. There is no evidence of acute or old infarct. The calvarium is intact. IMPRESSION: Unremarkable brain. at 2043 Reported and signed by: Kaushal New M.D. CC: Cole Hutchinson MD; Shady James MD Technologist:AYE KEITA, RT(R) CT CTDI: DLP: Trnscb Date/Time: 07/05/2018 (2043) Donovan Orig Print D/T: S: 07/05/2018 (2046) CTDI: DLP: PAGE 1 Signed Report COMPREHENSIVE METABOLIC [id number] 20:36:00* Test Item Value Reference Range Comments SODIUM (test code=NA) 144 mmol/L 136-145 POTASSIUM (test code=K) 3.7 mmol/L 3.5-5.1 CHLORIDE (test code=CL) 109.0 mmol/L 98-107 CARBON DIOXIDE (test code=CO2) mmol/L 21-32 ANION GAP (test code=GAP) 10-20 GLUCOSE (test code=GLU) mg/dL 74-106 BLOOD UREA NITROGEN (test code=BUN) mg/dL 7-18 GLOMERULAR FILTRATION RATE (test code=GFR) mL/min >=60 CREATININE (test code=CREAT) mg/dL 0.55-1.02 BUN/CREATININE RATIO (test code=BUN/CREA) 10-20 TOTAL PROTEIN (test code=PROT) gram/dL 6.4-8.2 ALBUMIN (test code=ALB) g/dL 3.4-5.0 GLOBULIN (test code=GLOB) gram/dL 2.7-4.2 ALBUMIN/GLOBULIN RATIO (test code=A/G) 0.75-1.50 CALCIUM (test code=CA) mg/dL 8.5-10.1 BILIRUBIN TOTAL (test code=BILT) mg/dL 0.0-1.0 SGOT/AST (test code=AST) IUnit/L 15-37 SGPT/ALT (test code=ALT) IUnit/L 12-78 ALKALINE PHOSPHATASE TOTAL (test code=ALKP) IUnit/L 45-117 [id number] 20:36:00* Test Item Value Reference Range Comments PHOSPHORUS (test code=PHOS) mg/dL 2.5-4.9 [id number] 20:36:00* Test Item Value Reference Range Comments MAGNESIUM (test code=MAG) mg/dL 1.8-2.4 PROTHROMBIN [id number] 20:29:00* Test Item Value Reference Range Comments PROTHROMBIN TIME PATIENT (test code=PTP) 11.6 seconds 9.0-14.0 INTERNATIONAL NORMAL RATIO (test code=INR) 1.0 0.8-1.2 The therapeutic range for oral anticoagulant therapy formost indications is an international normalized ratio (INR)of between 2.0 and 3.0. The recommended therapeutic INRrange for various clinical situations is listed below: Clinical Situation INR range Pulmonary e mbolism treatment (2.0-3.0)Venous thrombosis treatmentVenous thrombosis prophylaxis (high risk surgery)Prevention of systemic embolism from: Acute myocardial infarction Valvular heart disease Atrial fibrillation Mechanical prosthetic heart valves (2.5-3.5) CBC W/AUTO [id number] 20:24:00* Test Item Value Reference Range Comments WHITE BLOOD CELL (test code=WBC) 6.2 K/mm3 4.5-12.5 RED BLOOD CELL (test code=RBC) 5.29 mill/mm3 3.7-5.2 HEMOGLOBIN (test code=HGB) 14.4 gram/dL 11.5-15.5 HEMATOCRIT (test code=HCT) 47.3 % 36.0-46.0 MEAN CELL VOLUME (test code=MCV) 89.4 fL 80-98 MEAN CELL HGB (test code=MCH) 27.2 picogram 27.0-33.0 MEAN CELL HGB CONCETRATION (test code=MCHC) 30.4 gram/dL 33.0-36.0 RED CELL DISTRIBUTION WIDTH (test code=RDW) 13.9 % 11.6-16.2 RED CELL DISTRIBUTION WIDTH SD (test code=RDW-SD) 45.1 fL 37.0-51.0 PLATELET COUNT (test code=PLT) 290 K/mm3 150-450 MEAN PLATELET VOLUME (test code=MPV) 8.7 fL 6.7-11.0 NEUTROPHIL % (test code=NT%) 84.4 % 39.0-69.0 IMMATURE GRANULOCYTE % (test code=IG%) 1.3 % 0.0-5.0 LYMPHOCYTE % (test code=LY%) 13.0 % 25.0-55.0 MONOCYTE % (test code=MO%) 1.1 % 0.0-10.0 EOSINOPHIL % (test code=EO%) 0.0 % 0.0-5.0 BASOPHIL % (test code=BA%) 0.2 % 0.0-1.0 NUCLEATED RBC % (test code=NRBC%) 0.0 % 0-0 NEUTROPHIL # (test code=NT#) 5.21 K/mm3 1.8-7.7 IMMATURE GRANULOCYTE # (test code=IG#) 0.08 x10 3/uL 0-0.03 LYMPHOCYTE # (test code=LY#) 0.80 K/mm3 1.0-5.0 MONOCYTE # (test code=MO#) 0.07 K/mm3 0-0.8 EOSINOPHIL # (test code=EO#) 0.00 K/mm3 0.0-0.5 BASOPHIL # (test code=BA#) 0.01 K/mm3 0.0-0.2 NUCLEATED RBC # (test code=NRBC#) 0.00 K/mm3 0.0-0.1 MANUAL DIFF REQUIRED (test code=MDIFF) NO - XR CHEST 1 [id number] 12:51:00 FAX: Isaac Raymundo MD [phone] [place]: St: REG Name: Andreas BRUNASARITHA OBRIEN [facility] : [birth year] Age/S: 48/F [address] [place] [address] Blvd Unit #: [id number] Loc: [place] [address] Phys: Isaac Raymundo MD Acct: [id number] Dis Date: Status: REG ER PHONE #: [phone] Exam Date: 07/03/2018 1249 FAX #: [phone] Reason: CVA symptoms EXAMS: CPT CODE: [id number] XR CHEST 1 V 58217 1 view chest portable: HISTORY: Stroke symptoms. FINDINGS: Both lungs are clear. The heart and mediastinal contours are stable from 03/16/2018. A left chest p ort is well-positioned. IMPRESSION: Stable chest without acute p rocess SL: [id number] Elect ronically Signed by Rosanne Estrada on 07/03/2018 at 1251 Reported and signed by: Antoni Estrada M.D. CC: Eulogio Raymundo MD Technologist: Noelle Jameson, RT(R) Trnscrd Date/Time/By: 07/03/2018 (7587) : By: TerrieG Orig Print D/T: S: 07/03/2018 (9079) PAGE 1 Signed Report TROPONIN-I [id number] 12:47:00* Test Item Value Reference Range Comments TROPONIN-I RAPID (test code=TROPIRAP) 0.00 ng/mL 0.00-0.08 Performed by certified cnc mill set up operator [facility] Global Task Force with joint leadership from the EuropeanSociety of Cardiology (ESC), the [place] [employer] Foundation (ACCF), the [place] [employer] Association(AHA) and the World Heart Federation (WHF) refined past criteria of myocardial infarction (KS) with a universal definition of myocardial infarction that supports the use of cTnI as a preferred biomarker for myocardial injury. The universal definition of KS, according to this taskforce, is defined as a typical rise and gradual fall ofcardiac biomarkers (preferably troponin) with at least onevalue above the 99th percentile of the upper reference limit (URL) together with evidence of myocardial ischemia with at least one of the following:* ischemic symptoms,* pathological Q waves on electrocardiogram (ECG),* ischemic ECG changes,* or imaging evidence of new loss of viable myocardium or new regional wall motion abnormality. An elevated troponin value alone is not sufficient todiagnose a myocardial infarction. Rather, the patient sclinical presentation (history, physical exam) and ECGshould be used in conjunction with troponin in thediagnostic evaluation of suspected myocardial infarction. Aserial sampling protocol is recommended to facilitate the identification of temporal changes in troponin levels characteristic of KS. PROTHROMBIN [id number] 12:46:00* Test Item Value Reference Range Comments PROTHROMBIN TIME PATIENT (test code=PTP) 11.7 SECONDS 9.3-12.9 INTERNATIONAL NORMAL RATIO (test code=INR) 1.1 0.8-1.2 TARGET INR BY INDICATION Indication INR1. Prophylaxis of venous thrombosis 2.0 - 3.0 (orthopedic surgery), Prophylaxis of venous thrombosis (other than high-risk surgery), Treatment of Deep Vein Thrombosis/Pulmonary Embolism, Prevention of systemic embolism - Tissue heart valves, Acute Myocardial Infarction (to prevent systemic embolism), Valvular heart disease, Atrial Fibrillation, Bileaflet mechanical valve in aortic position.2. Mechanical prosthetic valves (high risk), 2.5 - 3.5 Presence of Lupus Anticoagulant or Antiphospholipid Antibodies, Prevention of systemic embolism - Acute Myocardial Infarction (to prevent recurrent infarct). THROMBOPLASTIN TIME [id number] 12:46:00* Test Item Value Reference Range Comments THROMBOPLASTIN TIME PARTIAL (test code=PTT) 43.1 Seconds 25.0-39.5 Therapeutic Range: 61.8-83.8 Sec Effective 06/19/2013 PROTHROMBIN [id number] 12:43:00* Test Item Value Reference Range Comments PROTHROMBIN TIME PATIENT (test code=PTP) 11.7 SECONDS 9.3-12.9 INTERNATIONAL NORMAL RATIO (test code=INR) 1.1 0.8-1.2 TARGET INR BY INDICATION Indication INR1. Prophylaxis of venous thrombosis 2.0 - 3.0 (orthopedic surgery), Prophylaxis of venous thrombosis (other than high-risk surgery), Treatment of Deep Vein Thrombosis/Pulmonary Embolism, Prevention of systemic embolism - Tissue heart valves, Acute Myocardial Infarction (to prevent systemic embolism), Valvular heart disease, Atrial Fibrillation, Bileaflet mechanical valve in aortic position.2. Mechanical prosthetic valves (high risk), 2.5 - 3.5 Presence of Lupus Anticoagulant or Antiphospholipid Antibodies, Prevention of systemic embolism - Acute Myocardial Infarction (to prevent recurrent infarct). THROMBOPLASTIN TIME [id number] 12:43:00* Test Item Value Reference Range Comments THROMBOPLASTIN TIME PARTIAL (test code=PTT) Seconds 25.0-39.5 [id number] 12:41:00* Test Item Value Reference Range Comments GLUBED (test code=GLUBED) 77 MG/DL 70-110 Performed by certified cnc mill set up operator at [facility] CBC W/O [id number] 12:41:00* Test Item Value Reference Range Comments WHITE BLOOD CELL (test code=WBC) 6.48 x10 3/uL 4.5-11.0 RED BLOOD CELL (test code=RBC) 4.84 x10 6/uL 3.54-5.02 HEMOGLOBIN (test code=HGB) 13.4 g/dL 11.0-15.0 HEMATOCRIT (test code=HCT) 43.3 % 33.0-45.0 MEAN CELL VOLUME (test code=MCV) 89.5 fL 81.0-99.0 MEAN CELL HGB (test code=MCH) 27.7 pg 27.0-33.0 MEAN CELL HGB CONCETRATION (test code=MCHC) 30.9 g/dL 33.0-37.0 RED CELL DISTRIBUTION WIDTH CV (test code=RDW) 13.4 % 11.5-14.5 RED CELL DISTRIBUTION WIDTH SD (test code=RDW-SD) 44.1 fL 37.0-54.0 PLATELET COUNT (test code=PLT) 295 x10 3/uL 150-400 MEAN PLATELET VOLUME (test code=MPV) 8.8 fL 7.0-9.0 CHEMISTRY 8 [id number] 12:40:00* Test Item Value Reference Range Comments ISTAT-SODIUM (test code=NAP) MMOL/L 134-147 ISTAT-POTASSIUM (test code=KP) MMOL/L 3.4-5.0 ISTAT-CHLORIDE (test code=CLP) MMOL/L 100-108 ISTAT CARBON DIOXIDE (test code=ISTAT-CO2) mmol/L 21-33 ISTAT CALCIUM IONIZED (test code=ISTAT-PACO) MG/DL 1.12-1.32 ISTAT-GLUCOSE (test code=GLUP) MG/DL 70-110 ISTAT-BUN (test code=BUNP) MG/DL 7-18 BEDSIDE CREATININE (test code=CREATBED) MG/DL 0.6-1.3 GLOMERULAR FILTRATION RATE POC (test code=GFRBED) 82 ML/MIN CHEMISTRY 8 [id number] 12:40:00* Test Item Value Reference Range Comments ISTAT-SODIUM (test code=NAP) 141 MMOL/L 134-147 ISTAT-POTASSIUM (test code=KP) 3.3 MMOL/L 3.4-5.0 ISTAT-CHLORIDE (test code=CLP) 100 MMOL/L 100-108 Performed by certified cnc mill set up operator at [facility] ISTAT CARBON DIOXIDE (test code=ISTAT-CO2) 29.0 mmol/L 21-33 ISTAT CALCIUM IONIZED (test code=ISTAT-PACO) 1.08 MG/DL 1.12-1.32 ISTAT-GLUCOSE (test code=GLUP) 99 MG/DL 70-110 ISTAT-BUN (test code=BUNP) 4 MG/DL 7-18 BEDSIDE CREATININE (test code=CREATBED) 0.8 MG/DL 0.6-1.3 GLOMERULAR FILTRATION RATE POC (test code=GFRBED) 82 ML/MIN CREATINE KINASE (CK), TOTAL AND [id number] 04:54:00* Test Item Value Reference Range Comments CREATINE KINASE TOTAL (BEAKER) (test rwaq=824) 23 U/L 29-200 CREATINE KINASE-MB (BEAKER) (test etzc=052) 0.4 ng/mL 0.0-6.6 CREATINE KINASE-MB INDEX (BEAKER) (test ydqh=062) 1.7 % CK-MB Reference Range:<6.7 Normal6.7-10.0 Borderline>10.0 Abnormal TROPONIN [id number] 04:54:00* Test Item Value Reference Range Comments TROPONIN I (BEAKER) (test ieqj=657) < ng/mL 0.00-0.03 Troponin I (TnI) levels must be interpreted in the context of the presenting sym ptoms and the clinical findings. Elevated TnI levels indicate myocardial damage, but are not specific for ischemic heart disease. Elevated TnI levels are seen in patients with other cardiac conditions (including myocarditis and congestive h eart failure), and slight TnI elevations occur in patients with other conditions , including sepsis, renal failure, acidosis, acute neurological disease, and per sistent tachyarrhythmia.[id number] 04:47:00* Test Item Value Reference Range Comments MAGNESIUM (BEAKER) (test lwre=788) 2.2 mg/dL 1.6-2.6 BASIC METABOLIC [id number] 04:47:00* Test Item Value Reference Range Comments SODIUM (BEAKER) (test omvb=912) 144 meq/L 136-145 POTASSIUM (BEAKER) (test tqwp=362) 4.4 meq/L 3.5-5.1 CHLORIDE (BEAKER) (test ypkj=797) 112 meq/L 98-107 CO2 (BEAKER) (test kgxp=551) 24 meq/L 22-29 BLOOD UREA NITROGEN (BEAKER) (test srrv=993) 7 mg/dL 7-21 CREATININE (BEAKER) (test lfsx=848) 0.80 mg/dL 0.57-1.25 GLUCOSE RANDOM (BEAKER) (test guvb=060) 120 mg/dL 70-105 CALCIUM (BEAKER) (test txai=263) 8.9 mg/dL 8.4-10.2 EGFR (BEAKER) (test llmd=6252) 78 mL/min/1.73 sq m ESTIMATED GFR IS NOT ACCURATE CREATININE CLEARANCE IN PREDICTING GLOMERULAR FILTRATION RATE. ESTIMATED GFR IS NOT APPLICABLE FOR DIALYSIS PATIENTS. CBC W/PLT COUNT & AUTO [id number] 04:35:00* Test Item Value Reference Range Comments WHITE BLOOD CELL COUNT (BEAKER) (test wrmy=252) 12.7 K/ L 3.5-10.5 RED BLOOD CELL COUNT (BEAKER) (test cnpo=283) 4.77 M/ L 3.93-5.22 HEMOGLOBIN (BEAKER) (test jdtk=838) 12.0 GM/DL 11.2-15.7 HEMATOCRIT (BEAKER) (test exkz=784) 40.6 % 34.1-44.9 MEAN CORPUSCULAR VOLUME (BEAKER) (test vxyo=837) 85.1 fL 79.4-94.8 MEAN CORPUSCULAR HEMOGLOBIN (BEAKER) (test kzww=820) 25.2 pg 25.6-32.2 MEAN CORPUSCULAR HEMOGLOBIN CONC (BEAKER) (test syig=886) 29.6 GM/DL 32.2-35.5 RED CELL DISTRIBUTION WIDTH (BEAKER) (test hczw=392) 14.4 % 11.7-14.4 PLATELET COUNT (BEAKER) (test trfi=144) 331 K/CU MM 150-450 MEAN PLATELET VOLUME (BEAKER) (test stly=303) 8.8 fL 9.4-12.3 NUCLEATED RED BLOOD CELLS (BEAKER) (test ccec=395) 0 /100 WBC 0-0 NEUTROPHILS RELATIVE PERCENT (BEAKER) (test zolu=227) 88 % LYMPHOCYTES RELATIVE PERCENT (BEAKER) (test szam=832) 8 % MONOCYTES RELATIVE PERCENT (BEAKER) (test knbn=026) 3 % EOSINOPHILS RELATIVE PERCENT (BEAKER) (test zaef=245) 0 % BASOPHILS RELATIVE PERCENT (BEAKER) (test zelw=238) 0 % NEUTROPHILS ABSOLUTE COUNT (BEAKER) (test wwst=484) 11.23 K/ L 1.56-6.13 LYMPHOCYTES ABSOLUTE COUNT (BEAKER) (test vrcf=016) 1.00 K/ L 1.18-3.74 MONOCYTES ABSOLUTE COUNT (BEAKER) (test mrno=333) 0.43 K/ L 0.24-0.36 EOSINOPHILS ABSOLUTE COUNT (BEAKER) (test kozv=524) 0.00 K/ L 0.04-0.36 BASOPHILS ABSOLUTE COUNT (BEAKER) (test uqjg=199) 0.02 K/ L 0.01-0.08 IMMATURE GRANULOCYTES-RELATIVE PERCENT (BEAKER) (test pdrp=0688) 1 % 0-1 CREATINE KINASE (CK), TOTAL AND [id number] 22:28:00* Test Item Value Reference Range Comments CREATINE KINASE TOTAL (BEAKER) (test lmxz=849) 26 U/L 29-200 CREATINE KINASE-MB (BEAKER) (test fhyx=796) 0.4 ng/mL 0.0-6.6 CREATINE KINASE-MB INDEX (BEAKER) (test iydi=274) 1.5 % CK-MB Reference Range:<6.7 Normal6.7-10.0 Borderline>10.0 Abnormal TROPONIN [id number] 22:28:00* Test Item Value Reference Range Comments TROPONIN I (BEAKER) (test imxh=640) < ng/mL 0.00-0.03 Troponin I (TnI) levels must be interpreted in the context of the presenting sym ptoms and the clinical findings. Elevated TnI levels indicate myocardial damage, but are not specific for ischemic heart disease. Elevated TnI levels are seen in patients with other cardiac conditions (including myocarditis and congestive h eart failure), and slight TnI elevations occur in patients with other conditions , including sepsis, renal failure, acidosis, acute neurological disease, and per sistent tachyarrhythmia.[id number] 22:21:00* Test Item Value Reference Range Comments MAGNESIUM (BEAKER) (test zzna=573) 2.3 mg/dL 1.6-2.6 COMPREHENSIVE METABOLIC [id number] 22:21:00* Test Item Value Reference Range Comments TOTAL PROTEIN (BEAKER) (test zvdv=273) 6.2 gm/dL 6.0-8.3 ALBUMIN (BEAKER) (test idrr=1229) 3.5 g/dL 3.5-5.0 ALKALINE PHOSPHATASE (BEAKER) (test jeyo=489) 130 U/L 40-150 BILIRUBIN TOTAL (BEAKER) (test tbgt=156) 0.2 mg/dL 0.2-1.2 SODIUM (BEAKER) (test gvup=978) 143 meq/L 136-145 POTASSIUM (BEAKER) (test uzib=789) 4.1 meq/L 3.5-5.1 CHLORIDE (BEAKER) (test nufg=790) 110 meq/L 98-107 CO2 (BEAKER) (test rgxw=950) 23 meq/L 22-29 BLOOD UREA NITROGEN (BEAKER) (test vvil=064) 7 mg/dL 7-21 CREATININE (BEAKER) (test leuq=313) 0.80 mg/dL 0.57-1.25 GLUCOSE RANDOM (BEAKER) (test qrdm=098) 127 mg/dL 70-105 CALCIUM (BEAKER) (test uwuz=498) 8.3 mg/dL 8.4-10.2 AST (SGOT) (BEAKER) (test royt=159) 9 U/L 5-34 ALT (SGPT) (BEAKER) (test vmga=765) 10 U/L 6-55 EGFR (BEAKER) (test eqgd=5508) 78 mL/min/1.73 sq m ESTIMATED GFR IS NOT ACCURATE CREATININE CLEARANCE IN PREDICTING GLOMERULAR FILTRATION RATE. ESTIMATED GFR IS NOT APPLICABLE FOR DIALYSIS PATIENTS. CBC W/PLT COUNT & AUTO [id number] 22:05:00* Test Item Value Reference Range Comments WHITE BLOOD CELL COUNT (BEAKER) (test ohgg=232) 12.2 K/ L 3.5-10.5 RED BLOOD CELL COUNT (BEAKER) (test ldvt=103) 4.52 M/ L 3.93-5.22 HEMOGLOBIN (BEAKER) (test hsdb=756) 11.5 GM/DL 11.2-15.7 HEMATOCRIT (BEAKER) (test xepv=413) 38.3 % 34.1-44.9 MEAN CORPUSCULAR VOLUME (BEAKER) (test wltc=097) 84.7 fL 79.4-94.8 MEAN CORPUSCULAR HEMOGLOBIN (BEAKER) (test lnsy=773) 25.4 pg 25.6-32.2 MEAN CORPUSCULAR HEMOGLOBIN CONC (BEAKER) (test dikc=944) 30.0 GM/DL 32.2-35.5 RED CELL DISTRIBUTION WIDTH (BEAKER) (test ucln=495) 14.4 % 11.7-14.4 PLATELET COUNT (BEAKER) (test ppdp=710) 286 K/CU MM 150-450 MEAN PLATELET VOLUME (BEAKER) (test bdah=891) 9.0 fL 9.4-12.3 NUCLEATED RED BLOOD CELLS (BEAKER) (test fviz=481) 0 /100 WBC 0-0 NEUTROPHILS RELATIVE PERCENT (BEAKER) (test kdor=721) 95 % LYMPHOCYTES RELATIVE PERCENT (BEAKER) (test wjdw=175) 4 % MONOCYTES RELATIVE PERCENT (BEAKER) (test mfjl=411) 1 % EOSINOPHILS RELATIVE PERCENT (BEAKER) (test vwlm=060) 0 % BASOPHILS RELATIVE PERCENT (BEAKER) (test drpd=271) 0 % NEUTROPHILS ABSOLUTE COUNT (BEAKER) (test drba=190) 11.55 K/ L 1.56-6.13 LYMPHOCYTES ABSOLUTE COUNT (BEAKER) (test ncqf=385) 0.53 K/ L 1.18-3.74 MONOCYTES ABSOLUTE COUNT (BEAKER) (test pyey=277) 0.08 K/ L 0.24-0.36 EOSINOPHILS ABSOLUTE COUNT (BEAKER) (test yaim=985) 0.00 K/ L 0.04-0.36 BASOPHILS ABSOLUTE COUNT (BEAKER) (test fxdm=519) 0.01 K/ L 0.01-0.08 IMMATURE GRANULOCYTES-RELATIVE PERCENT (BEAKER) (test cthc=6145) 0 % 0-1 CALCIUM, [id number] 06:59:00* Test Item Value Reference Range Comments CALCIUM IONIZED (BEAKER) (test bvac=781) 1.06 mmol/L 1.12-1.27 PH, BLOOD (BEAKER) (test xtwl=8664) 7.33 CBC W/PLT COUNT & AUTO [id number] 06:49:00* Test Item Value Reference Range Comments WHITE BLOOD CELL COUNT (BEAKER) (test nyfb=962) 16.1 K/ L 3.5-10.5 RED BLOOD CELL COUNT (BEAKER) (test fuaf=393) 4.80 M/ L 3.93-5.22 HEMOGLOBIN (BEAKER) (test aqjj=542) 12.4 GM/DL 11.2-15.7 HEMATOCRIT (BEAKER) (test aghq=575) 41.6 % 34.1-44.9 MEAN CORPUSCULAR VOLUME (BEAKER) (test yefm=362) 86.7 fL 79.4-94.8 MEAN CORPUSCULAR HEMOGLOBIN (BEAKER) (test xbru=903) 25.8 pg 25.6-32.2 MEAN CORPUSCULAR HEMOGLOBIN CONC (BEAKER) (test mxqk=829) 29.8 GM/DL 32.2-35.5 RED CELL DISTRIBUTION WIDTH (BEAKER) (test fzsk=900) 13.7 % 11.7-14.4 PLATELET COUNT (BEAKER) (test oiye=345) 395 K/CU MM 150-450 MEAN PLATELET VOLUME (BEAKER) (test kpzk=715) 9.0 fL 9.4-12.3 NUCLEATED RED BLOOD CELLS (BEAKER) (test qvhi=405) 0 /100 WBC 0-0 NEUTROPHILS RELATIVE PERCENT (BEAKER) (test ggym=001) 92 % LYMPHOCYTES RELATIVE PERCENT (BEAKER) (test vchb=091) 6 % MONOCYTES RELATIVE PERCENT (BEAKER) (test fdky=003) 1 % EOSINOPHILS RELATIVE PERCENT (BEAKER) (test fwhh=334) 0 % BASOPHILS RELATIVE PERCENT (BEAKER) (test evjp=177) 0 % NEUTROPHILS ABSOLUTE COUNT (BEAKER) (test bcvx=495) 14.83 K/ L 1.56-6.13 LYMPHOCYTES ABSOLUTE COUNT (BEAKER) (test zikm=592) 0.95 K/ L 1.18-3.74 MONOCYTES ABSOLUTE COUNT (BEAKER) (test qahr=921) 0.12 K/ L 0.24-0.36 EOSINOPHILS ABSOLUTE COUNT (BEAKER) (test mnlq=019) 0.00 K/ L 0.04-0.36 BASOPHILS ABSOLUTE COUNT (BEAKER) (test iior=542) 0.02 K/ L 0.01-0.08 IMMATURE GRANULOCYTES-RELATIVE PERCENT (BEAKER) (test bofo=1706) 1 % 0-1 COMPREHENSIVE METABOLIC [id number] 06:39:00* Test Item Value Reference Range Comments TOTAL PROTEIN (BEAKER) (test fgok=693) 6.7 gm/dL 6.0-8.3 ALBUMIN (BEAKER) (test hctz=9164) 3.7 g/dL 3.5-5.0 ALKALINE PHOSPHATASE (BEAKER) (test xldb=466) 138 U/L 40-150 BILIRUBIN TOTAL (BEAKER) (test zfai=554) < mg/dL 0.2-1.2 SODIUM (BEAKER) (test ouyz=676) 141 meq/L 136-145 POTASSIUM (BEAKER) (test edei=422) 4.4 meq/L 3.5-5.1 CHLORIDE (BEAKER) (test qnwx=531) 108 meq/L 98-107 CO2 (BEAKER) (test uchg=633) 21 meq/L 22-29 BLOOD UREA NITROGEN (BEAKER) (test vcxf=706) 9 mg/dL 7-21 CREATININE (BEAKER) (test ynzy=439) 0.82 mg/dL 0.57-1.25 GLUCOSE RANDOM (BEAKER) (test nwaq=442) 172 mg/dL 70-105 CALCIUM (BEAKER) (test ujcb=956) 8.6 mg/dL 8.4-10.2 AST (SGOT) (BEAKER) (test irsm=503) 9 U/L 5-34 ALT (SGPT) (BEAKER) (test axks=526) 9 U/L 6-55 EGFR (BEAKER) (test gpkt=3944) 75 mL/min/1.73 sq m ESTIMATED GFR IS NOT ACCURATE CREATININE CLEARANCE IN PREDICTING GLOMERULAR FILTRATION RATE. ESTIMATED GFR IS NOT APPLICABLE FOR DIALYSIS PATIENTS. TISSUE [id number] 23:03:00Surgical Pathology Report Case: [id number] Authorizing Provider: Clayton Nguyen, Collected: 07/27/2017 Anton18 Ordering Location: [facility] [facility] Received: 07/27/2017 0951 SERVICES Pathologist: Quincy Fry MD Specimens: A) - Parathyroid, Left inferior parathyroid adenoma B) - Parathyroid, Left superior parathyroid with thyroid nodule A. PARATHYROID, LEFT INFERIOR, PARATHYROIDECTOMY: - HYPERCELLULAR PARATHYROID TISSUE, COMPATIBLE WITH PARATHYROID ADENOMA (0.70 GRAMS)B. PARATHYROID, LEFT SUPERIOR AND THYROID NODULE, PARATHYROIDECTOMY AND THYROID NODULE EXCISION: - PIECE OF NORMOCELLULAR PARATHYROID TISSUE - PIECE OF THYROID TISSUE WITH HYPERPLASTIC AND REACTIVE CHANGES Signing Pathologist Direct Phone Line: [phone] signed by Quincy Fry MD on 08/02/2017 at 11:03 [id number] X 2Hyperparathyroidism primary A. Left inferior parathyroid adenoma. B. Left superior parathyroid with thyroid noduleSpecimen is received in two containers of formalin both labeled with the patient's information.Specimen A: Labeled "left inferior parathyroid adenoma" consists of a 0.70 gm round excision of mcneill tissue measuring 1 x 0.8 x 0.5 cm. The surface is inked blue. The specimen is bisected showing a homogeneous, mcneill, lobulated cut surface. The specimen is entirely submitted in A1.Specimen B: Labeled "left superior parathyroid with thyroid nodule" consists of 0.11 gm excision of round red-brown tissue measuring 0.5 x 0.4 x 0.3 cm with attached adipose tissue measuring 0.4 x 0.3 x 0.2 cm. The specimen is bisected and submitted entirely in B1. CG/ewCALCIUM, [id number] 07:50:00* Test Item Value Reference Range Comments CALCIUM IONIZED (BEAKER) (test azml=062) 0.93 mmol/L 1.12-1.27 PH, BLOOD (BEAKER) (test yrhu=2628) 7.31 [id number] 05:29:00* Test Item Value Reference Range Comments MAGNESIUM (BEAKER) (test ezhi=552) 1.7 mg/dL 1.6-2.6 BASIC METABOLIC [id number] 05:29:00* Test Item Value Reference Range Comments SODIUM (BEAKER) (test pxgp=395) 142 meq/L 136-145 POTASSIUM (BEAKER) (test blsv=638) 4.0 meq/L 3.5-5.1 CHLORIDE (BEAKER) (test rsrq=156) 107 meq/L 98-107 CO2 (BEAKER) (test iviy=759) 29 meq/L 22-29 BLOOD UREA NITROGEN (BEAKER) (test ztiw=631) 9 mg/dL 7-21 CREATININE (BEAKER) (test eeqi=487) 0.86 mg/dL 0.57-1.25 GLUCOSE RANDOM (BEAKER) (test eczo=728) 78 mg/dL 70-105 CALCIUM (BEAKER) (test lfvk=625) 8.0 mg/dL 8.4-10.2 EGFR (BEAKER) (test qngk=6924) 71 mL/min/1.73 sq m ESTIMATED GFR IS NOT ACCURATE CREATININE CLEARANCE IN PREDICTING GLOMERULAR FILTRATION RATE. ESTIMATED GFR IS NOT APPLICABLE FOR DIALYSIS PATIENTS. CALCIUM, [id number] 06:56:00* Test Item Value Reference Range Comments CALCIUM IONIZED (BEAKER) (test ypqw=238) 1.00 mmol/L 1.12-1.27 PH, BLOOD (BEAKER) (test daou=2171) 7.33 [id number] 06:33:00* Test Item Value Reference Range Comments MAGNESIUM (BEAKER) (test qkbv=184) 1.6 mg/dL 1.6-2.6 BASIC METABOLIC [id number] 06:33:00* Test Item Value Reference Range Comments SODIUM (BEAKER) (test aqeq=954) 143 meq/L 136-145 POTASSIUM (BEAKER) (test ezqr=894) 3.5 meq/L 3.5-5.1 CHLORIDE (BEAKER) (test zelk=392) 108 meq/L 98-107 CO2 (BEAKER) (test hosq=591) 27 meq/L 22-29 BLOOD UREA NITROGEN (BEAKER) (test yrcb=787) 8 mg/dL 7-21 CREATININE (BEAKER) (test etkn=257) 0.80 mg/dL 0.57-1.25 GLUCOSE RANDOM (BEAKER) (test ejpb=424) 86 mg/dL 70-105 CALCIUM (BEAKER) (test wrha=434) 8.0 mg/dL 8.4-10.2 EGFR (BEAKER) (test kycm=2544) 78 mL/min/1.73 sq m ESTIMATED GFR IS NOT ACCURATE CREATININE CLEARANCE IN PREDICTING GLOMERULAR FILTRATION RATE. ESTIMATED GFR IS NOT APPLICABLE FOR DIALYSIS PATIENTS. PTH, [id number] 11:17:00* Test Item Value Reference Range Comments PARATHYROID HORMONE INTACT (BEAKER) (test mqkw=759) 16.1 pg/mL 8.5-72.5 PTH, [id number] 09:59:00* Test Item Value Reference Range Comments PARATHYROID HORMONE INTACT (BEAKER) (test qsfb=872) 275.8 pg/mL 8.5-72.5 [id number] 04:48:00* Test Item Value Reference Range Comments PHOSPHORUS (BEAKER) (test hylc=203) 2.5 mg/dL 2.3-4.7 [id number] 04:48:00* Test Item Value Reference Range Comments MAGNESIUM (BEAKER) (test pssq=213) 1.7 mg/dL 1.6-2.6 BASIC METABOLIC [id number] 04:48:00* Test Item Value Reference Range Comments SODIUM (BEAKER) (test giyl=953) 142 meq/L 136-145 POTASSIUM (BEAKER) (test nemj=070) 3.7 meq/L 3.5-5.1 CHLORIDE (BEAKER) (test aofh=868) 112 meq/L 98-107 CO2 (BEAKER) (test qcrp=344) 23 meq/L 22-29 BLOOD UREA NITROGEN (BEAKER) (test hldu=841) 9 mg/dL 7-21 CREATININE (BEAKER) (test zvxj=887) 0.80 mg/dL 0.57-1.25 GLUCOSE RANDOM (BEAKER) (test ybfh=543) 78 mg/dL 70-105 CALCIUM (BEAKER) (test jhzx=176) 9.4 mg/dL 8.4-10.2 EGFR (BEAKER) (test iwfy=2004) 78 mL/min/1.73 sq m ESTIMATED GFR IS NOT ACCURATE CREATININE CLEARANCE IN PREDICTING GLOMERULAR FILTRATION RATE. ESTIMATED GFR IS NOT APPLICABLE FOR DIALYSIS PATIENTS. PROTHROMBIN [id number] 04:35:00* Test Item Value Reference Range Comments PROTIME (BEAKER) (test uzwi=456) 13.6 seconds 11.7-14.7 INR (BEAKER) (test lfmh=646) 1.0 <=5.9 RECOMMENDED COUMADIN/WARFARIN INR THERAPY RANGESSTANDARD DOSE: 2.0 - 3.0 Inclu jay: PROPHYLAXIS for venous thrombosis, systemic embolization; TREATMENT for misa ous thrombosis and/or pulmonary embolus.HIGH RISK: Target INR is 2.5-3.5 for pat ients with mechanical heart valves.CBC W/PLT COUNT & AUTO [id number] 04:23:00* Test Item Value Reference Range Comments WHITE BLOOD CELL COUNT (BEAKER) (test ddqh=585) 9.5 K/ L 3.5-10.5 RED BLOOD CELL COUNT (BEAKER) (test fngm=290) 4.07 M/ L 3.93-5.22 HEMOGLOBIN (BEAKER) (test idyz=102) 10.7 GM/DL 11.2-15.7 HEMATOCRIT (BEAKER) (test bgtj=491) 35.4 % 34.1-44.9 MEAN CORPUSCULAR VOLUME (BEAKER) (test kogd=227) 87.0 fL 79.4-94.8 MEAN CORPUSCULAR HEMOGLOBIN (BEAKER) (test dkro=017) 26.3 pg 25.6-32.2 MEAN CORPUSCULAR HEMOGLOBIN CONC (BEAKER) (test qyzu=873) 30.2 GM/DL 32.2-35.5 RED CELL DISTRIBUTION WIDTH (BEAKER) (test uxcg=303) 14.6 % 11.7-14.4 PLATELET COUNT (BEAKER) (test cejc=212) 238 K/CU MM 150-450 MEAN PLATELET VOLUME (BEAKER) (test yino=281) 8.8 fL 9.4-12.3 NUCLEATED RED BLOOD CELLS (BEAKER) (test oacg=324) 0 /100 WBC 0-0 NEUTROPHILS RELATIVE PERCENT (BEAKER) (test nmtk=377) 69 % LYMPHOCYTES RELATIVE PERCENT (BEAKER) (test pfms=810) 21 % MONOCYTES RELATIVE PERCENT (BEAKER) (test ewvr=743) 5 % EOSINOPHILS RELATIVE PERCENT (BEAKER) (test dvha=840) 4 % BASOPHILS RELATIVE PERCENT (BEAKER) (test dpfi=388) 0 % NEUTROPHILS ABSOLUTE COUNT (BEAKER) (test iads=767) 6.56 K/ L 1.56-6.13 LYMPHOCYTES ABSOLUTE COUNT (BEAKER) (test uamy=901) 1.99 K/ L 1.18-3.74 MONOCYTES ABSOLUTE COUNT (BEAKER) (test mxsc=722) 0.50 K/ L 0.24-0.36 EOSINOPHILS ABSOLUTE COUNT (BEAKER) (test rhva=108) 0.35 K/ L 0.04-0.36 BASOPHILS ABSOLUTE COUNT (BEAKER) (test humn=516) 0.02 K/ L 0.01-0.08 IMMATURE GRANULOCYTES-RELATIVE PERCENT (BEAKER) (test nurm=5097) 1 % 0-1 HEMOGLOBIN [id number] 20:45:00* Test Item Value Reference Range Comments HEMOGLOBIN A1C (BEAKER) (test rpbp=311) 5.3 % 4.3-6.1 BASIC METABOLIC [id number] 19:17:00* Test Item Value Reference Range Comments SODIUM (BEAKER) (test dkhz=156) 140 meq/L 136-145 POTASSIUM (BEAKER) (test ojnp=872) 4.5 meq/L 3.5-5.1 CHLORIDE (BEAKER) (test htey=750) 112 meq/L 98-107 CO2 (BEAKER) (test itgx=798) 25 meq/L 22-29 BLOOD UREA NITROGEN (BEAKER) (test isvo=694) 11 mg/dL 7-21 CREATININE (BEAKER) (test bcxz=034) 0.88 mg/dL 0.57-1.25 GLUCOSE RANDOM (BEAKER) (test xrcp=282) 87 mg/dL 70-105 CALCIUM (BEAKER) (test zsmm=537) 10.2 mg/dL 8.4-10.2 EGFR (BEAKER) (test gccq=9614) 69 mL/min/1.73 sq m ESTIMATED GFR IS NOT ACCURATE CREATININE CLEARANCE IN PREDICTING GLOMERULAR FILTRATION RATE. ESTIMATED GFR IS NOT APPLICABLE FOR DIALYSIS PATIENTS. [id number] 19:17:00* Test Item Value Reference Range Comments PHOSPHORUS (BEAKER) (test yiit=657) 3.0 mg/dL 2.3-4.7 [id number] 19:17:00* Test Item Value Reference Range Comments ALBUMIN (BEAKER) (test yvod=5176) 3.2 g/dL 3.5-5.0 RAD, CHEST, 1 VIEW, NON [id number] 17:34:00Reason for exam:->post picc line insertion Should this be performed at the bedside?->YesFINAL REPORT Chest, one view HISTORY: PICC placement COMPARISON: Chest x-ray from 06/23/2017 DISCUSSION: Tip of the right-sided PICC overlies the SVC. Lungs are clear without focal consolidation. Cardiomediastinal silhouette is unremarkable. No acute osseous abnormality. No pleural effusion or pneumothorax. Visualized portions of the upper abdomen are unremarkable. IMPRESSION: Tip of the right- sided PICC overlies the SVC. No acute cardiopulmonary abnormality. Signed: Walter Caraballo Verified Date/Time: 07/25/2017 17:34:28 Reading Location: [address] Consult Reading Room , SOFT TISSUE NECK, W/ WITHOUT [id number] 11:33:00Need Paratyroid protocol per Dr. Nguyen.FINAL REPORT CT neck with and without contrast 07/25/2017 11:28 AM CLINICAL HISTORY: Hyperparathyroidism TECHNIQUE: Thin section noncontrast and contrast-enhanced CT images of the neck were obtained. Axially acquired data were reformatted in coronal and sagittal planes for further analysis. This examination was performed according to our departmental dose optimization program, which includes automated exposure control, adjustment of the mA and/or kV according to patient size, and/or use of iterated reconstruction technique. COMPARISON: None available FINDINGS: There is a potential 16 mm parathyroid adenoma in the superior mediastinum, immediately inferior to the inferior margin of the left lobe of the thyroid gland (image 135). The remaining visualized soft tissue and skeleton are unremarkable. IMPRESSION: Potential parathyroid adenoma in the supe rior mediastinum. Signed: Aaron Martínez Verified Date/Time: 07/26/19 11:33:37 Reading Location: [address] Neuro Reading Room , BRAIN, WITH 2017-07-23 17:02:00FINAL REPORT MRI brain with and without contrast Comparison: June 29, 2017 Reason for exam: Headache, left-sided weakness Discussion: Multiplanar MR imaging of the brain was provided [id number] IV gadolinium administration using T1, T2, FLAIR, T2 star, diffusion weighted sequences, and ADC map imaging. There are no intracranial hematomas, masses, hydrocephalus, shift, or extra-axial collections. There are no areas of abnormal enhancement or abnormal diffusion restriction. Flow- voids are seen in the basilar and internal carotid arteries as well as in the large posterior dural sinuses. The pineal, sella, and craniocervical junction regions are unremarkable. The visualized orbital contents, skullbase and surrounding soft tissues are unremarkable. Minimal polypoid paranasal sinus mucosal thickening. Impressions: Negative cranial MRI. Signed: Osito Mccoy Verified Date/Time: 07/23/2017 17:02:30 Reading Location: [facility] C013V Neuro Reading Room HROMBIN [id number] 05:11:00* Test Item Value Reference Range Comments PROTIME (BEAKER) (test xbxm=442) 13.0 seconds 11.7-14.7 INR (BEAKER) (test pfdu=206) 1.0 <=5.9 RECOMMENDED COUMADIN/WARFARIN INR THERAPY RANGESSTANDARD DOSE: 2.0 - 3.0 Inclu jay: PROPHYLAXIS for venous thrombosis, systemic embolization; TREATMENT for misa ous thrombosis and/or pulmonary embolus.HIGH RISK: Target INR is 2.5-3.5 for pat ients with mechanical heart valves.CBC W/PLT COUNT & AUTO [id number] 05:10:00* Test Item Value Reference Range Comments WHITE BLOOD CELL COUNT (BEAKER) (test mycj=728) 7.9 K/ L 3.5-10.5 RED BLOOD CELL COUNT (BEAKER) (test cfuw=283) 4.27 M/ L 3.93-5.22 HEMOGLOBIN (BEAKER) (test xmnw=062) 11.3 GM/DL 11.2-15.7 HEMATOCRIT (BEAKER) (test hffm=766) 37.8 % 34.1-44.9 MEAN CORPUSCULAR VOLUME (BEAKER) (test nfoy=576) 88.5 fL 79.4-94.8 MEAN CORPUSCULAR HEMOGLOBIN (BEAKER) (test ylnm=368) 26.5 pg 25.6-32.2 MEAN CORPUSCULAR HEMOGLOBIN CONC (BEAKER) (test klif=829) 29.9 GM/DL 32.2-35.5 RED CELL DISTRIBUTION WIDTH (BEAKER) (test ayxl=853) 15.0 % 11.7-14.4 PLATELET COUNT (BEAKER) (test uyia=034) 128 K/CU MM 150-450 MEAN PLATELET VOLUME (BEAKER) (test syea=636) 11.4 fL 9.4-12.3 NUCLEATED RED BLOOD CELLS (BEAKER) (test kmkl=868) 0 /100 WBC 0-0 NEUTROPHILS RELATIVE PERCENT (BEAKER) (test guhz=581) 58 % LYMPHOCYTES RELATIVE PERCENT (BEAKER) (test upsk=811) 34 % MONOCYTES RELATIVE PERCENT (BEAKER) (test rwqu=163) 7 % EOSINOPHILS RELATIVE PERCENT (BEAKER) (test swjy=719) 1 % BASOPHILS RELATIVE PERCENT (BEAKER) (test pleu=247) 0 % NEUTROPHILS ABSOLUTE COUNT (BEAKER) (test kfat=785) 4.55 K/ L 1.56-6.13 LYMPHOCYTES ABSOLUTE COUNT (BEAKER) (test tpft=349) 2.65 K/ L 1.18-3.74 MONOCYTES ABSOLUTE COUNT (BEAKER) (test ejxo=783) 0.52 K/ L 0.24-0.36 EOSINOPHILS ABSOLUTE COUNT (BEAKER) (test tmow=726) 0.10 K/ L 0.04-0.36 BASOPHILS ABSOLUTE COUNT (BEAKER) (test yeoz=376) 0.02 K/ L 0.01-0.08 IMMATURE GRANULOCYTES-RELATIVE PERCENT (BEAKER) (test pbqz=5817) 0 % 0-1 [id number] 16:00:00* Test Item Value Reference Range Comments MAGNESIUM (BEAKER) (test azyz=768) 1.9 mg/dL 1.6-2.6 BASIC METABOLIC [id number] 16:00:00* Test Item Value Reference Range Comments SODIUM (BEAKER) (test nsrj=391) 145 meq/L 136-145 POTASSIUM (BEAKER) (test agjv=097) 4.1 meq/L 3.5-5.1 CHLORIDE (BEAKER) (test sqjo=530) 113 meq/L 98-107 CO2 (BEAKER) (test npkf=112) 27 meq/L 22-29 BLOOD UREA NITROGEN (BEAKER) (test etmk=082) 11 mg/dL 7-21 CREATININE (BEAKER) (test ymeb=507) 0.87 mg/dL 0.57-1.25 GLUCOSE RANDOM (BEAKER) (test bbpo=812) 124 mg/dL 70-105 CALCIUM (BEAKER) (test bpxm=091) 10.3 mg/dL 8.4-10.2 EGFR (BEAKER) (test iykd=2729) 70 mL/min/1.73 sq m ESTIMATED GFR IS NOT ACCURATE CREATININE CLEARANCE IN PREDICTING GLOMERULAR FILTRATION RATE. ESTIMATED GFR IS NOT APPLICABLE FOR DIALYSIS PATIENTS. HEPATIC FUNCTION [id number] 16:00:00* Test Item Value Reference Range Comments TOTAL PROTEIN (BEAKER) (test kvnr=817) 5.6 gm/dL 6.0-8.3 ALBUMIN (BEAKER) (test byue=8340) 3.1 g/dL 3.5-5.0 BILIRUBIN TOTAL (BEAKER) (test gtdi=576) < mg/dL 0.2-1.2 BILIRUBIN DIRECT (BEAKER) (test bbri=200) 0.1 mg/dL 0.1-0.5 ALKALINE PHOSPHATASE (BEAKER) (test pded=187) 125 U/L 40-150 AST (SGOT) (BEAKER) (test ubke=923) 10 U/L 5-34 ALT (SGPT) (BEAKER) (test qhiu=105) 10 U/L 6-55 [id number] 15:58:00* Test Item Value Reference Range Comments PHOSPHORUS (BEAKER) (test jzyz=871) 2.1 mg/dL 2.3-4.7 [id number] 15:58:00* Test Item Value Reference Range Comments MAGNESIUM (BEAKER) (test fxgw=721) 1.9 mg/dL 1.6-2.6 COMPREHENSIVE METABOLIC [id number] 15:58:00* Test Item Value Reference Range Comments TOTAL PROTEIN (BEAKER) (test eakv=288) 5.5 gm/dL 6.0-8.3 ALBUMIN (BEAKER) (test rkoh=3952) 3.1 g/dL 3.5-5.0 ALKALINE PHOSPHATASE (BEAKER) (test kdjb=719) 123 U/L 40-150 BILIRUBIN TOTAL (BEAKER) (test hwga=844) < mg/dL 0.2-1.2 SODIUM (BEAKER) (test sbyf=225) 145 meq/L 136-145 POTASSIUM (BEAKER) (test yngx=752) 4.0 meq/L 3.5-5.1 CHLORIDE (BEAKER) (test qrkb=687) 113 meq/L 98-107 CO2 (BEAKER) (test fdjd=029) 27 meq/L 22-29 BLOOD UREA NITROGEN (BEAKER) (test nnwu=810) 11 mg/dL 7-21 CREATININE (BEAKER) (test rlzr=940) 0.87 mg/dL 0.57-1.25 GLUCOSE RANDOM (BEAKER) (test lxsr=855) 124 mg/dL 70-105 CALCIUM (BEAKER) (test tzqw=919) 10.2 mg/dL 8.4-10.2 AST (SGOT) (BEAKER) (test pkcp=274) 9 U/L 5-34 ALT (SGPT) (BEAKER) (test uuxs=898) 9 U/L 6-55 EGFR (BEAKER) (test vtln=6231) 70 mL/min/1.73 sq m ESTIMATED GFR IS NOT ACCURATE CREATININE CLEARANCE IN PREDICTING GLOMERULAR FILTRATION RATE. ESTIMATED GFR IS NOT APPLICABLE FOR DIALYSIS PATIENTS. PROTHROMBIN [id number] 15:35:00* Test Item Value Reference Range Comments PROTIME (BEAKER) (test yqve=153) 14.1 seconds 11.7-14.7 INR (BEAKER) (test fgyt=210) 1.1 <=5.9 RECOMMENDED COUMADIN/WARFARIN INR THERAPY RANGESSTANDARD DOSE: 2.0 - 3.0 Inclu jay: PROPHYLAXIS for venous thrombosis, systemic embolization; TREATMENT for misa ous thrombosis and/or pulmonary embolus.HIGH RISK: Target INR is 2.5-3.5 for pat ients with mechanical heart valves.CBC W/PLT COUNT & AUTO [id number] 15:34:00* Test Item Value Reference Range Comments WHITE BLOOD CELL COUNT (BEAKER) (test npef=668) 13.8 K/ L 3.5-10.5 RED BLOOD CELL COUNT (BEAKER) (test fxuw=400) 4.49 M/ L 3.93-5.22 HEMOGLOBIN (BEAKER) (test lycy=921) 11.8 GM/DL 11.2-15.7 HEMATOCRIT (BEAKER) (test efpv=866) 39.5 % 34.1-44.9 MEAN CORPUSCULAR VOLUME (BEAKER) (test ibvg=245) 88.0 fL 79.4-94.8 MEAN CORPUSCULAR HEMOGLOBIN (BEAKER) (test uxnt=457) 26.3 pg 25.6-32.2 MEAN CORPUSCULAR HEMOGLOBIN CONC (BEAKER) (test xyxx=133) 29.9 GM/DL 32.2-35.5 RED CELL DISTRIBUTION WIDTH (BEAKER) (test dhmg=223) 14.3 % 11.7-14.4 PLATELET COUNT (BEAKER) (test ecyz=498) 257 K/CU MM 150-450 MEAN PLATELET VOLUME (BEAKER) (test zhct=532) 9.1 fL 9.4-12.3 NUCLEATED RED BLOOD CELLS (BEAKER) (test feqg=317) 0 /100 WBC 0-0 NEUTROPHILS RELATIVE PERCENT (BEAKER) (test kpfx=934) 77 % LYMPHOCYTES RELATIVE PERCENT (BEAKER) (test zwkp=405) 17 % MONOCYTES RELATIVE PERCENT (BEAKER) (test ytgv=122) 5 % EOSINOPHILS RELATIVE PERCENT (BEAKER) (test netk=248) 0 % BASOPHILS RELATIVE PERCENT (BEAKER) (test pxyc=412) 0 % NEUTROPHILS ABSOLUTE COUNT (BEAKER) (test kdej=081) 10.65 K/ L 1.56-6.13 LYMPHOCYTES ABSOLUTE COUNT (BEAKER) (test rxho=315) 2.34 K/ L 1.18-3.74 MONOCYTES ABSOLUTE COUNT (BEAKER) (test glgp=860) 0.73 K/ L 0.24-0.36 EOSINOPHILS ABSOLUTE COUNT (BEAKER) (test vxgf=015) 0.01 K/ L 0.04-0.36 BASOPHILS ABSOLUTE COUNT (BEAKER) (test vdgg=832) 0.02 K/ L 0.01-0.08 IMMATURE GRANULOCYTES-RELATIVE PERCENT (BEAKER) (test ilzy=3829) 1 % 0-1 [id number] 19:27:00* Test Item Value Reference Range Comments MAGNESIUM (BEAKER) (test cqpf=486) 2.9 mg/dL 1.6-2.6 Specimen markedly hemolyzed [id number] 19:27:00* Test Item Value Reference Range Comments PHOSPHORUS (BEAKER) (test lrui=122) 1.8 mg/dL 2.3-4.7 Specimen markedly hemolyzed COMPREHENSIVE METABOLIC [id number] 19:27:00* Test Item Value Reference Range Comments TOTAL PROTEIN (BEAKER) (test lrcv=019) 7.5 gm/dL 6.0-8.3 Specimen markedly hemolyzed ALBUMIN (BEAKER) (test mfno=4871) 3.6 g/dL 3.5-5.0 Specimen markedly hemolyzed ALKALINE PHOSPHATASE (BEAKER) (test pvzq=787) 155 U/L 40-150 BILIRUBIN TOTAL (BEAKER) (test oona=799) < mg/dL 0.2-1.2 Specimen markedly hemolyzed SODIUM (BEAKER) (test cghz=335) 140 meq/L 136-145 POTASSIUM (BEAKER) (test uxxo=507) 5.8 meq/L 3.5-5.1 Specimen markedly hemolyzed CHLORIDE (BEAKER) (test czyz=850) 108 meq/L 98-107 CO2 (BEAKER) (test dbsr=755) 24 meq/L 22-29 BLOOD UREA NITROGEN (BEAKER) (test jiqp=592) 10 mg/dL 7-21 CREATININE (BEAKER) (test ylbz=955) 0.89 mg/dL 0.57-1.25 Specimen markedly hemolyzed GLUCOSE RANDOM (BEAKER) (test hnic=412) 206 mg/dL 70-105 CALCIUM (BEAKER) (test dqiv=552) 10.6 mg/dL 8.4-10.2 AST (SGOT) (BEAKER) (test wrab=341) 28 U/L 5-34 Specimen markedly hemolyzed ALT (SGPT) (BEAKER) (test ohok=773) 16 U/L 6-55 Specimen markedly hemolyzed EGFR (BEAKER) (test rqyf=8161) 69 mL/min/1.73 sq m ESTIMATED GFR IS NOT ACCURATE CREATININE CLEARANCE IN PREDICTING GLOMERULAR FILTRATION RATE. ESTIMATED GFR IS NOT APPLICABLE FOR DIALYSIS PATIENTS. CBC (HEMOGRAM ONLY)2017-07-20 18:53:00* Test Item Value Reference Range Comments WHITE BLOOD CELL COUNT (BEAKER) (test cens=586) 8.7 K/ L 3.5-10.5 RED BLOOD CELL COUNT (BEAKER) (test keym=380) 5.22 M/ L 3.93-5.22 HEMOGLOBIN (BEAKER) (test dwrm=177) 13.8 GM/DL 11.2-15.7 HEMATOCRIT (BEAKER) (test uxhl=061) 45.6 % 34.1-44.9 MEAN CORPUSCULAR VOLUME (BEAKER) (test adid=405) 87.4 fL 79.4-94.8 MEAN CORPUSCULAR HEMOGLOBIN (BEAKER) (test ezyi=356) 26.4 pg 25.6-32.2 MEAN CORPUSCULAR HEMOGLOBIN CONC (BEAKER) (test gjym=377) 30.3 GM/DL 32.2-35.5 RED CELL DISTRIBUTION WIDTH (BEAKER) (test nzfx=131) 14.1 % 11.7-14.4 PLATELET COUNT (BEAKER) (test gqoa=661) 244 K/CU MM 150-450 MEAN PLATELET VOLUME (BEAKER) (test emab=327) 10.9 fL 9.4-12.3 NUCLEATED RED BLOOD CELLS (BEAKER) (test sedd=580) 0 /100 WBC 0-0 CALCIUM, 24 HOUR [id number] 11:12:00* Test Item Value Reference Range Comments VOLUME, TOTAL (BEAKER) (test ravn=3711) 1900 ml CALCIUM URINE (BEAKER) (test hhif=454) 20.7 mg/dL CALCIUM, 24HR URINE (BEAKER) (test yvpt=2285) 393 mg/24 Hr 50-300 [id number] 07:21:00* Test Item Value Reference Range Comments MAGNESIUM (BEAKER) (test lecg=087) 2.3 mg/dL 1.6-2.6 BASIC METABOLIC [id number] 07:21:00* Test Item Value Reference Range Comments SODIUM (BEAKER) (test inrc=116) 141 meq/L 136-145 POTASSIUM (BEAKER) (test brrv=486) 4.6 meq/L 3.5-5.1 CHLORIDE (BEAKER) (test uwru=254) 109 meq/L 98-107 CO2 (BEAKER) (test zhri=043) 26 meq/L 22-29 BLOOD UREA NITROGEN (BEAKER) (test zgtd=037) 13 mg/dL 7-21 CREATININE (BEAKER) (test spwp=877) 0.78 mg/dL 0.57-1.25 GLUCOSE RANDOM (BEAKER) (test ugmo=305) 84 mg/dL 70-105 CALCIUM (BEAKER) (test iaxr=994) 9.9 mg/dL 8.4-10.2 EGFR (BEAKER) (test ypfo=9405) 80 mL/min/1.73 sq m ESTIMATED GFR IS NOT ACCURATE CREATININE CLEARANCE IN PREDICTING GLOMERULAR FILTRATION RATE. ESTIMATED GFR IS NOT APPLICABLE FOR DIALYSIS PATIENTS. [id number] 07:21:00* Test Item Value Reference Range Comments ALBUMIN (VIVIANA) (test awdb=7055) 3.3 g/dL 3.5-5.0 MR, BRAIN, [id number] 03:14:00FINAL REPORT Exam: MRI brain with and without contrast Comparison: No prior study for direct comparison. Clinical history: Headache, acute, norm neuro exam refractory to treatment for several days. Clinical suspicion for pseudotumor cerebri. Technique: Multiplanar multisequential MR of the brain was performed before and after the administration of IV gadolinium. Findings: The ventricles, sulci and cisterns are normal in size for patient age. There is no intracranial mass, mass effect, extra-axial collection, hydrocephalus or herniation. There is no restricted diffusion to suggest an acute infarct. There is no signal abnormality on susceptibility sequences to suggest hemorrhage or hemosiderin deposition. There is no abnormal enhancement. The skull base flow-voids are seen in keeping with their patency. There are polyps or retention cysts in the bilateral maxillary sinuses. There are no paranasal sinus air-fluid levels. The mastoid air cells are clear. There are bilateral lens replacements; the orbits are otherwise unremarkable. There is no sella/suprasellar mass. The craniocervical junction is normal. Impressions: No intracranial hemorrhage, mass effect or abnormal enhancement. Signed: Caroline Rivero MDReport Verified Date/Time: 03:14:07 Reading Location: [address] Transitional Reading Room El ectronically signed by: CAROLINE RIVERO MD on 06/29/2017 03:14 AM NM, PARATHYROID IMAGING WITH SPECT/[id number] 17:15:00Reason for exam:->primary hyperparathyroidismFINAL REPORT PROCEDURE: PARATHYROID SCAN, with SPECT CPT CODE: 75440 INDICATION: Primary hyperparathyroidism PROTOCOL: 16.3 mCi of Tc-99m sestamibi was injected intravenously. Planar imaging of the head/neck and chest was performed shortly after tracer injection and was repeated approximately 3 hours later. Limited SPECT images were obtained for tracer localization. FINDINGS: Early images show tracer uptake in the salivary glands and the heart. There is limited thyroid activity. Delayed images show washout of tracer from the thyroid gland. No focal abnormality is noted in the thyroid bed or mediastinum. IMPRESSION:1. Decreased thyroid uptake suggests thyroiditis.2. Otherwise normal study. There is no focal abnormality to indicate parathyroid adenoma. Signed: Robby Maddox MDReport Verified Date/Time: 06/28/2017 17:15:51 Reading Location: [address] Reading Room IUM, RANDOM [id number] 12:34:00* Test Item Value Reference Range Comments CALCIUM URINE (BEAKER) (test oglv=506) > mg/dL Reference Range: No NormalsTSH/FREE T4 IF [id number] 08:54:00* Test Item Value Reference Range Comments THYROID STIMULATING HORMONE (BEAKER) (test hfhn=015) 1.29 uIU/mL 0.35-4.94 [id number] 08:31:00* Test Item Value Reference Range Comments PHOSPHORUS (BEAKER) (test nqin=168) 3.2 mg/dL 2.3-4.7 [id number] 08:31:00* Test Item Value Reference Range Comments MAGNESIUM (BEAKER) (test hefk=701) 2.4 mg/dL 1.6-2.6 BASIC METABOLIC [id number] 08:31:00* Test Item Value Reference Range Comments SODIUM (BEAKER) (test rthn=508) 141 meq/L 136-145 POTASSIUM (BEAKER) (test weme=317) 4.6 meq/L 3.5-5.1 CHLORIDE (BEAKER) (test dzto=630) 111 meq/L 98-107 CO2 (BEAKER) (test xhxh=088) 22 meq/L 22-29 BLOOD UREA NITROGEN (BEAKER) (test ylbx=904) 16 mg/dL 7-21 CREATININE (BEAKER) (test ksjw=146) 0.80 mg/dL 0.57-1.25 GLUCOSE RANDOM (BEAKER) (test zpso=089) 88 mg/dL 70-105 CALCIUM (BEAKER) (test qgta=417) 9.8 mg/dL 8.4-10.2 EGFR (BEAKER) (test fzav=1512) 78 mL/min/1.73 sq m ESTIMATED GFR IS NOT ACCURATE CREATININE CLEARANCE IN PREDICTING GLOMERULAR FILTRATION RATE. ESTIMATED GFR IS NOT APPLICABLE FOR DIALYSIS PATIENTS. [id number] 08:31:00* Test Item Value Reference Range Comments ALBUMIN (BEAKER) (test dtjk=5428) 3.3 g/dL 3.5-5.0 URINALYSIS W/ [id number] 08:14:00* Test Item Value Reference Range Comments COLOR (BEAKER) (test mkry=940) Yellow CLARITY (BEAKER) (test dvti=035) Clear SPECIFIC GRAVITY UA (BEAKER) (test snqx=313) 1.024 1.001-1.035 PH UA (BEAKER) (test vyty=174) 6.0 5.0-8.0 PROTEIN UA (BEAKER) (test rryg=346) 10 mg/dL Negative GLUCOSE UA (BEAKER) (test fwds=957) Negative Negative KETONES UA (BEAKER) (test hvnv=021) Negative Negative BILIRUBIN UA (BEAKER) (test rybg=801) Negative Negative BLOOD UA (BEAKER) (test hbkw=085) Negative Negative NITRITE UA (BEAKER) (test vmxv=216) Negative Negative LEUKOCYTE ESTERASE UA (BEAKER) (test uamk=201) Trace Negative UROBILINOGEN UA (BEAKER) (test lyev=388) 0.2 mg/dL 0.2-1.0 RBC UA (BEAKER) (test cwvn=885) 2 /HPF WBC UA (BEAKER) (test phti=747) 10 /HPF BACTERIA (BEAKER) (test zabl=831) Rare MUCUS (BEAKER) (test etis=9061) Rare SQUAMOUS EPITHELIAL (BEAKER) (test cvov=913) 1 /HPF HYALINE CASTS (BEAKER) (test fwfp=904) 12 /LPF CALCIUM OXALATE CRYSTALS (BEAKER) (test xqpd=066) Few SOURCE(BEAKER) (test wtjy=5417) VITAMIN D, [id number] 12:34:00* Test Item Value Reference Range Comments VITAMIN D 25-OH (BEAKER) (test bcwk=0241) 13.9 ng/mL 6.6-49.9 Effective 03/01/2017: Reference Range ChangeNew: 6.6-49.9 ng/mL Previous: 13.0 -47.8 ng/mLRecommended Vitamin D Target Range: 30.0-40.0 ng/mLPTH, INTACT 2017-06-27 12:17:00* Test Item Value Reference Range Comments PARATHYROID HORMONE INTACT (BEAKER) (test nirz=924) 162.8 pg/mL 8.5-72.5 HEPATIC FUNCTION [id number] 12:13:00* Test Item Value Reference Range Comments TOTAL PROTEIN (BEAKER) (test eprd=686) 6.0 gm/dL 6.0-8.3 ALBUMIN (BEAKER) (test xhhn=3075) 3.4 g/dL 3.5-5.0 BILIRUBIN TOTAL (BEAKER) (test bzap=546) < mg/dL 0.2-1.2 BILIRUBIN DIRECT (BEAKER) (test yurv=581) 0.1 mg/dL 0.1-0.5 ALKALINE PHOSPHATASE (BEAKER) (test swgm=143) 127 U/L 40-150 AST (SGOT) (BEAKER) (test fkoc=681) 9 U/L 5-34 ALT (SGPT) (BEAKER) (test oyer=659) 10 U/L 6-55 CBC W/PLT COUNT & AUTO [id number] 09:59:00* Test Item Value Reference Range Comments WHITE BLOOD CELL COUNT (BEAKER) (test plim=997) 13.0 K/ L 3.5-10.5 RED BLOOD CELL COUNT (BEAKER) (test dvzd=069) 4.79 M/ L 3.93-5.22 HEMOGLOBIN (BEAKER) (test khsj=160) 12.8 GM/DL 11.2-15.7 HEMATOCRIT (BEAKER) (test tmvy=944) 41.5 % 34.1-44.9 MEAN CORPUSCULAR VOLUME (BEAKER) (test uhfw=605) 86.6 fL 79.4-94.8 MEAN CORPUSCULAR HEMOGLOBIN (BEAKER) (test pskn=593) 26.7 pg 25.6-32.2 MEAN CORPUSCULAR HEMOGLOBIN CONC (BEAKER) (test fork=272) 30.8 GM/DL 32.2-35.5 RED CELL DISTRIBUTION WIDTH (BEAKER) (test pqkg=380) 14.2 % 11.7-14.4 PLATELET COUNT (BEAKER) (test uxcb=206) 251 K/CU MM 150-450 MEAN PLATELET VOLUME (BEAKER) (test bwpx=617) 9.5 fL 9.4-12.3 NUCLEATED RED BLOOD CELLS (BEAKER) (test dzei=098) 0 /100 WBC 0-0 NEUTROPHILS RELATIVE PERCENT (BEAKER) (test euhu=042) 91 % LYMPHOCYTES RELATIVE PERCENT (BEAKER) (test givz=355) 7 % MONOCYTES RELATIVE PERCENT (BEAKER) (test rwyv=728) 1 % EOSINOPHILS RELATIVE PERCENT (BEAKER) (test aukq=784) 0 % BASOPHILS RELATIVE PERCENT (BEAKER) (test vctm=588) 0 % NEUTROPHILS ABSOLUTE COUNT (BEAKER) (test mqpy=429) 11.78 K/ L 1.56-6.13 LYMPHOCYTES ABSOLUTE COUNT (BEAKER) (test ppes=534) 0.88 K/ L 1.18-3.74 MONOCYTES ABSOLUTE COUNT (BEAKER) (test nyrm=629) 0.16 K/ L 0.24-0.36 EOSINOPHILS ABSOLUTE COUNT (BEAKER) (test rtwm=146) 0.00 K/ L 0.04-0.36 BASOPHILS ABSOLUTE COUNT (BEAKER) (test kwgj=172) 0.01 K/ L 0.01-0.08 IMMATURE GRANULOCYTES-RELATIVE PERCENT (BEAKER) (test esxd=4046) 1 % 0-1 URINE [id number] 08:57:00* Test Item Value Reference Range Comments CULTURE (BEAKER) (test jwdx=7739) Ampicillin (test code=26) Linezolid (test code=40) Tetracycline (test code=2) Vancomycin (test code=13) CULTURE (BEAKER) (test jeco=5009) >100,000 col/mL Enterococcus species >100,000 col/mL skin [id number] 07:04:00* Test Item Value Reference Range Comments MAGNESIUM (BEAKER) (test cqxd=293) 2.2 mg/dL 1.6-2.6 BASIC METABOLIC [id number] 07:04:00* Test Item Value Reference Range Comments SODIUM (BEAKER) (test ihjq=412) 139 meq/L 136-145 POTASSIUM (BEAKER) (test kyrl=098) 4.8 meq/L 3.5-5.1 CHLORIDE (BEAKER) (test zyvt=807) 109 meq/L 98-107 CO2 (BEAKER) (test yraq=648) 25 meq/L 22-29 BLOOD UREA NITROGEN (BEAKER) (test hldq=481) 9 mg/dL 7-21 CREATININE (BEAKER) (test rkjq=423) 0.82 mg/dL 0.57-1.25 GLUCOSE RANDOM (BEAKER) (test brqu=790) 152 mg/dL 70-105 CALCIUM (BEAKER) (test hiby=539) 10.8 mg/dL 8.4-10.2 EGFR (BEAKER) (test ybjb=2018) 75 mL/min/1.73 sq m ESTIMATED GFR IS NOT ACCURATE CREATININE CLEARANCE IN PREDICTING GLOMERULAR FILTRATION RATE. ESTIMATED GFR IS NOT APPLICABLE FOR DIALYSIS PATIENTS. POCT-GLUCOSE [id number] 08:46:00* Test Item Value Reference Range Comments POC-GLUCOSE METER (BEAKER) (test xusu=7409) 91 mg/dL 70-110 TESTED AT [facility] [address] [facility] [address] TROPONIN [id number] 06:58:00* Test Item Value Reference Range Comments TROPONIN I (BEAKER) (test ukjz=112) 0.01 ng/mL 0.00-0.03 Troponin I (TnI) levels must be interpreted in the context of the presenting sym ptoms and the clinical findings. Elevated TnI levels indicate myocardial damage, but are not specific for ischemic heart disease. Elevated TnI levels are seen in patients with other cardiac conditions (including myocarditis and congestive h eart failure), and slight TnI elevations occur in patients with other conditions , including sepsis, renal failure, acidosis, acute neurological disease, and per sistent tachyarrhythmia.TROPONIN [id number] 03:32:00* Test Item Value Reference Range Comments TROPONIN I (BEAKER) (test tboh=015) 0.01 ng/mL 0.00-0.03 Troponin I (TnI) levels must be interpreted in the context of the presenting sym ptoms and the clinical findings. Elevated TnI levels indicate myocardial damage, but are not specific for ischemic heart disease. Elevated TnI levels are seen in patients with other cardiac conditions (including myocarditis and congestive h eart failure), and slight TnI elevations occur in patients with other conditions , including sepsis, renal failure, acidosis, acute neurological disease, and per sistent tachyarrhythmia.CBC W/PLT COUNT & AUTO [id number] 02:49:00* Test Item Value Reference Range Comments WHITE BLOOD CELL COUNT (BEAKER) (test ulrn=043) 6.8 K/ L 3.5-10.5 RED BLOOD CELL COUNT (BEAKER) (test jhut=705) 4.67 M/ L 3.93-5.22 HEMOGLOBIN (BEAKER) (test ilyj=524) 12.5 GM/DL 11.2-15.7 HEMATOCRIT (BEAKER) (test azdf=515) 43.2 % 34.1-44.9 MEAN CORPUSCULAR VOLUME (BEAKER) (test rzkm=910) 92.5 fL 79.4-94.8 Discordant MCV result Compare to previous result, Clinical correlation recommended. MEAN CORPUSCULAR HEMOGLOBIN (BEAKER) (test nhle=346) 26.8 pg 25.6-32.2 MEAN CORPUSCULAR HEMOGLOBIN CONC (BEAKER) (test fyiy=951) 28.9 GM/DL 32.2-35.5 RED CELL DISTRIBUTION WIDTH (BEAKER) (test cnxd=556) 14.5 % 11.7-14.4 PLATELET COUNT (BEAKER) (test qpyn=985) 180 K/CU MM 150-450 MEAN PLATELET VOLUME (BEAKER) (test kphg=872) 9.1 fL 9.4-12.3 NUCLEATED RED BLOOD CELLS (BEAKER) (test ddzg=816) 0 /100 WBC 0-0 NEUTROPHILS RELATIVE PERCENT (BEAKER) (test cknu=487) 55 % LYMPHOCYTES RELATIVE PERCENT (BEAKER) (test nuig=603) 31 % MONOCYTES RELATIVE PERCENT (BEAKER) (test wkhn=481) 7 % EOSINOPHILS RELATIVE PERCENT (BEAKER) (test qtck=648) 6 % BASOPHILS RELATIVE PERCENT (BEAKER) (test teif=570) 0 % NEUTROPHILS ABSOLUTE COUNT (BEAKER) (test pbah=317) 3.71 K/ L 1.56-6.13 LYMPHOCYTES ABSOLUTE COUNT (BEAKER) (test jtpu=662) 2.12 K/ L 1.18-3.74 MONOCYTES ABSOLUTE COUNT (BEAKER) (test lfrb=562) 0.50 K/ L 0.24-0.36 EOSINOPHILS ABSOLUTE COUNT (BEAKER) (test wfql=748) 0.39 K/ L 0.04-0.36 BASOPHILS ABSOLUTE COUNT (BEAKER) (test zcny=626) 0.02 K/ L 0.01-0.08 IMMATURE GRANULOCYTES-RELATIVE PERCENT (BEAKER) (test yrqk=7137) 0 % 0-1 POCT-GLUCOSE [id number] 08:34:00* Test Item Value Reference Range Comments POC-GLUCOSE METER (BEAKER) (test rxkq=3975) 90 mg/dL 70-110 TESTED AT [facility] [address] [facility] [address] CBC W/PLT COUNT & AUTO [id number] 08:21:00* Test Item Value Reference Range Comments WHITE BLOOD CELL COUNT (BEAKER) (test nuuv=414) 8.3 K/ L 3.5-10.5 RED BLOOD CELL COUNT (BEAKER) (test qlfs=475) 4.61 M/ L 3.93-5.22 HEMOGLOBIN (BEAKER) (test jeky=371) 12.0 GM/DL 11.2-15.7 HEMATOCRIT (BEAKER) (test bago=509) 39.9 % 34.1-44.9 MEAN CORPUSCULAR VOLUME (BEAKER) (test sjmr=713) 86.6 fL 79.4-94.8 MEAN CORPUSCULAR HEMOGLOBIN (BEAKER) (test emsd=102) 26.0 pg 25.6-32.2 MEAN CORPUSCULAR HEMOGLOBIN CONC (BEAKER) (test prgd=582) 30.1 GM/DL 32.2-35.5 RED CELL DISTRIBUTION WIDTH (BEAKER) (test bqcj=664) 14.5 % 11.7-14.4 PLATELET COUNT (BEAKER) (test qmvk=711) 228 K/CU MM 150-450 MEAN PLATELET VOLUME (BEAKER) (test jfnn=551) 9.0 fL 9.4-12.3 NUCLEATED RED BLOOD CELLS (BEAKER) (test tsqn=523) 0 /100 WBC 0-0 NEUTROPHILS RELATIVE PERCENT (BEAKER) (test sspj=389) 71 % LYMPHOCYTES RELATIVE PERCENT (BEAKER) (test irrp=816) 19 % MONOCYTES RELATIVE PERCENT (BEAKER) (test zler=975) 6 % EOSINOPHILS RELATIVE PERCENT (BEAKER) (test pryn=465) 3 % BASOPHILS RELATIVE PERCENT (BEAKER) (test dkql=826) 0 % NEUTROPHILS ABSOLUTE COUNT (BEAKER) (test hlwy=679) 5.93 K/ L 1.56-6.13 LYMPHOCYTES ABSOLUTE COUNT (BEAKER) (test grbw=704) 1.56 K/ L 1.18-3.74 MONOCYTES ABSOLUTE COUNT (BEAKER) (test rihe=104) 0.50 K/ L 0.24-0.36 EOSINOPHILS ABSOLUTE COUNT (BEAKER) (test ixth=694) 0.26 K/ L 0.04-0.36 BASOPHILS ABSOLUTE COUNT (BEAKER) (test mkkq=595) 0.02 K/ L 0.01-0.08 IMMATURE GRANULOCYTES-RELATIVE PERCENT (BEAKER) (test jtvo=5995) 1 % 0-1 URINALYSIS W/ [id number] 19:47:00* Test Item Value Reference Range Comments COLOR (BEAKER) (test vwhz=657) Yellow CLARITY (BEAKER) (test lvgn=364) Hazy SPECIFIC GRAVITY UA (BEAKER) (test tirf=929) 1.019 1.001-1.035 PH UA (BEAKER) (test lify=853) 5.5 5.0-8.0 PROTEIN UA (BEAKER) (test nouo=048) Negative Negative GLUCOSE UA (BEAKER) (test fcfb=942) Negative Negative KETONES UA (BEAKER) (test nhga=081) Negative Negative BILIRUBIN UA (BEAKER) (test qugs=173) Negative Negative BLOOD UA (BEAKER) (test fycy=279) Small Negative NITRITE UA (BEAKER) (test skkj=960) Negative Negative LEUKOCYTE ESTERASE UA (BEAKER) (test ezrw=707) Large Negative UROBILINOGEN UA (BEAKER) (test okum=911) 0.2 mg/dL 0.2-1.0 RBC UA (BEAKER) (test qgno=657) 4 /HPF WBC UA (BEAKER) (test mnyi=475) > /HPF MUCUS (BEAKER) (test vkzl=9882) Occasional SQUAMOUS EPITHELIAL (BEAKER) (test sgru=925) 3 /HPF HYALINE CASTS (BEAKER) (test rorg=663) 9 /LPF CASTS (BEAKER) (test rfqc=9661) 2 /LPF CRYSTALS, URINE (BEAKER) (test rpyx=3326) Occasional SOURCE(BEAKER) (test acdx=0381) Urine, Voided POCT-GLUCOSE [id number] 09:32:00* Test Item Value Reference Range Comments POC-GLUCOSE METER (BEAKER) (test ztvj=3472) 115 mg/dL 70-110 TESTED AT [facility] [address] [facility] [address] URINALYSIS W/ [id number] 07:47:00* Test Item Value Reference Range Comments COLOR (BEAKER) (test rzuq=681) Light Yellow CLARITY (BEAKER) (test tsaf=226) Hazy SPECIFIC GRAVITY UA (BEAKER) (test tlrq=107) 1.008 1.001-1.035 PH UA (BEAKER) (test utlv=526) 7.0 5.0-8.0 PROTEIN UA (BEAKER) (test laxx=807) Negative Negative GLUCOSE UA (BEAKER) (test qpvz=062) Negative Negative KETONES UA (BEAKER) (test tmla=334) Negative Negative BILIRUBIN UA (BEAKER) (test fivh=027) Negative Negative BLOOD UA (BEAKER) (test yenx=038) Negative Negative NITRITE UA (BEAKER) (test atlr=341) Negative Negative LEUKOCYTE ESTERASE UA (BEAKER) (test nfzb=091) Small Negative UROBILINOGEN UA (BEAKER) (test netd=072) 0.2 mg/dL 0.2-1.0 RBC UA (BEAKER) (test rdpq=298) 0 /HPF WBC UA (BEAKER) (test uhxa=812) 3 /HPF BACTERIA (BEAKER) (test oroo=121) Many SQUAMOUS EPITHELIAL (BEAKER) (test pcku=303) 1 /HPF CALCIUM OXALATE CRYSTALS (BEAKER) (test dizo=270) Occasional YEAST (BEAKER) (test clul=1462) Few SOURCE(BEAKER) (test crca=3915) RAPID DRUG SCREEN, [id number] 07:27:00* Test Item Value Reference Range Comments BARBITURATE URINE (BEAKER) (test jofx=197) Negative Negative BENZODIAZEPINE SCREEN URINE (BEAKER) (test eyfw=824) Negative Negative COCAINE (METAB.) SCREEN (BEAKER) (test puve=1926) Negative Negative METHADONE SCREEN (BEAKER) (test eesw=0012) Negative Negative OPIATE SCREEN URINE (BEAKER) (test agos=881) Positive Negative CANNABINOID SCREEN URINE (BEAKER) (test wxiu=465) Negative Negative AMPH/METHAMPH SCREEN (BEAKER) (test uzjn=7703) Negative Negative PHENCYCLIDINE SCREEN URINE (BEAKER) (test hguv=599) Negative Negative OXYCODONE SCREEN URINE (BEAKER) (test pcru=2337) Negative Negative DRUG CUTOFF CONC.Cocaine 300 ng/mL Cannabinoid 50 ng/mL Benzodiazepine 200 ng/mLBarbiturate 200 ng/mLPh encyclidine 25 ng/mLOpiate 300 ng/mLMethadone 300 ng/mLAmphetamine/ 1000 ng/mL MethamphetamineOxycodone 300 ng/mLThis assay provides an unconfirmed qualitative test result for the cli nical management of patients in emergency situations. Chain of custody not maint ained. Some arue-nse-nacevyz medications, as well as adulterants, may cause inac curate results. Clinical correlation should be applied. A more comprehensive luan g screen or confirmation of a detected drug may be performed upon request. [id number] 02:13:00* Test Item Value Reference Range Comments PHOSPHORUS (BEAKER) (test tusr=869) 2.8 mg/dL 2.3-4.7 [id number] 02:13:00* Test Item Value Reference Range Comments MAGNESIUM (BEAKER) (test djam=232) 2.2 mg/dL 1.6-2.6 COMPREHENSIVE METABOLIC [id number] 02:13:00* Test Item Value Reference Range Comments TOTAL PROTEIN (BEAKER) (test qoys=918) 5.8 gm/dL 6.0-8.3 ALBUMIN (BEAKER) (test nxuy=3011) 3.3 g/dL 3.5-5.0 ALKALINE PHOSPHATASE (BEAKER) (test adgb=200) 121 U/L 40-150 BILIRUBIN TOTAL (BEAKER) (test cagk=403) 0.4 mg/dL 0.2-1.2 SODIUM (BEAKER) (test kipa=402) 143 meq/L 136-145 POTASSIUM (BEAKER) (test umcy=254) 3.8 meq/L 3.5-5.1 CHLORIDE (BEAKER) (test gcor=024) 111 meq/L 98-107 CO2 (BEAKER) (test xkfp=397) 25 meq/L 22-29 BLOOD UREA NITROGEN (BEAKER) (test tdxt=155) 10 mg/dL 7-21 CREATININE (BEAKER) (test nyfv=735) 0.77 mg/dL 0.57-1.25 GLUCOSE RANDOM (BEAKER) (test ekuc=132) 86 mg/dL 70-105 CALCIUM (BEAKER) (test alxe=833) 10.3 mg/dL 8.4-10.2 AST (SGOT) (BEAKER) (test rvob=439) 10 U/L 5-34 ALT (SGPT) (BEAKER) (test uftx=726) 11 U/L 6-55 EGFR (BEAKER) (test siqo=3361) 81 mL/min/1.73 sq m ESTIMATED GFR IS NOT ACCURATE CREATININE CLEARANCE IN PREDICTING GLOMERULAR FILTRATION RATE. ESTIMATED GFR IS NOT APPLICABLE FOR DIALYSIS PATIENTS. CBC W/PLT COUNT & AUTO [id number] 01:47:00* Test Item Value Reference Range Comments WHITE BLOOD CELL COUNT (BEAKER) (test iumg=570) 8.3 K/ L 3.5-10.5 RED BLOOD CELL COUNT (BEAKER) (test rzdk=089) 4.50 M/ L 3.93-5.22 HEMOGLOBIN (BEAKER) (test ukwu=623) 11.9 GM/DL 11.2-15.7 HEMATOCRIT (BEAKER) (test rnvn=456) 38.5 % 34.1-44.9 MEAN CORPUSCULAR VOLUME (BEAKER) (test jcjt=108) 85.6 fL 79.4-94.8 MEAN CORPUSCULAR HEMOGLOBIN (BEAKER) (test zqjr=725) 26.4 pg 25.6-32.2 MEAN CORPUSCULAR HEMOGLOBIN CONC (BEAKER) (test noxm=887) 30.9 GM/DL 32.2-35.5 RED CELL DISTRIBUTION WIDTH (BEAKER) (test fsxo=140) 14.1 % 11.7-14.4 PLATELET COUNT (BEAKER) (test mxwd=512) 243 K/CU MM 150-450 MEAN PLATELET VOLUME (BEAKER) (test ewin=479) 8.8 fL 9.4-12.3 NUCLEATED RED BLOOD CELLS (BEAKER) (test auwb=895) 0 /100 WBC 0-0 NEUTROPHILS RELATIVE PERCENT (BEAKER) (test ubqd=650) 64 % LYMPHOCYTES RELATIVE PERCENT (BEAKER) (test epll=746) 28 % MONOCYTES RELATIVE PERCENT (BEAKER) (test kgkc=371) 6 % EOSINOPHILS RELATIVE PERCENT (BEAKER) (test tbtt=007) 2 % BASOPHILS RELATIVE PERCENT (BEAKER) (test pukm=357) 0 % NEUTROPHILS ABSOLUTE COUNT (BEAKER) (test troa=491) 5.28 K/ L 1.56-6.13 LYMPHOCYTES ABSOLUTE COUNT (BEAKER) (test vxrp=465) 2.30 K/ L 1.18-3.74 MONOCYTES ABSOLUTE COUNT (BEAKER) (test nglb=533) 0.50 K/ L 0.24-0.36 EOSINOPHILS ABSOLUTE COUNT (BEAKER) (test nylo=130) 0.16 K/ L 0.04-0.36 BASOPHILS ABSOLUTE COUNT (BEAKER) (test dbkv=757) 0.01 K/ L 0.01-0.08 IMMATURE GRANULOCYTES-RELATIVE PERCENT (BEAKER) (test zmem=4808) 0 % 0-1 RAD, CHEST, 1 VIEW, NON [id number] 01:06:00Reason for exam:->picc placement Should this be performed at the bedside?->YesFINAL REPORT RAD, CHEST, 1 VIEW, NON DEPT INDICATION: picc placement COMPARISON: Chest x-ray in 2011 TECHNIQUE: Single frontal view of the chest. IMPRESSION:Right-sided PICC line terminates at the atriocaval junction.Cardiomediastinal silhouette within normal limits.No overt consolidative or congestive change.No acute osseous abnormality. Signed: Yamila Hammonds MDReport Verified Date/Time: 06/23/2017 01:06:31 Reading Location: [facility] B1 [id number] Ortho Consult Reading Room
--- OUTSIDE RECORDS SUMMARY | 2018-11-13 05:42 | XMS REPORT ---
Author Author Admin, Brogan Organization [facility] Address [address] [address] Phone Allergies, Adverse Reactions, Alerts Allergy Name Reaction Description Start Date Severity Status Provider ZOFRMIGUE Critical Active Anish Garcia MD ADVAIR Critical [...] a day as needed for anxiety. CLONAZEPAM [id number] Active Artie Uriostegui MD Active ABILIFY ORAL TABLET 10 MG TAKE 1 TABLET BY MOUTH ONCE DAILY AT BEDTIME ARIPIPRAZOLE 90028573182 Active Artie Uriostegui MD Active DOXEPIN HCL 10 MG ORAL CAPSULE Take 1-2 cap by mouth at bedtime as needed for sleep. DOXEPIN HCL 84882424913 Active Artie Uriostegui MD Active HYDROCODONE-ACETAMINOPHEN 10-325 MG ORAL TABLET TAKE ONE (1) TABLET(S) BY MOUTH EVERY SIX HOURS NEEDED. HYDROCODONE-ACETAMINOPHEN 60034001886 Active Artie Uriostegui MD Active MORPHINE SULFATE ER 60 MG ORAL TABLET EXTENDED RELEASE MORPHINE SULFATE 80888043206 Active Artie Uriostegui MD Active PANTOPRAZOLE SODIUM 40 MG ORAL TABLET DELAYED RELEASE PANTOPRAZOLE SODIUM 97024474951 Active Artie Uriostegui MD Active ASPIRIN EC 81 MG ORAL TABLET DELAYED RELEASE TAKE ONE (1) TABLET(S) BY MOUTH ONCE A DAY. ASPIRIN 01988147747 Active Artie Uriostegui MD Active METOPROLOL TARTRATE 25 MG ORAL TABLET TAKE ONE-HALF (1/2) TABLET(S) BY MOUTH TWICE A DAY HOLD IF BLOOD PRESSURE IS LESS THAN 110 OR HEART RATE IS LESS THAN 60. METOPROLOL TARTRATE 95794794967 Active Artie Uriostegui MD Active ATORVASTATIN CALCIUM 80 MG ORAL TABLET TAKE ONE (1) TABLET(S) BY MOUTH AT BEDTIME. ATORVASTATIN CALCIUM 47124607273 Active Artie Uriostegui MD Active LAMICTAL 100 MG ORAL TABLET Take 1 tab By Mouth Twice a Day LAMOTRIGINE 75352035562 Active Artie Uriostegui MD Active PRISTIQ 100 MG ORAL TABLET EXTENDED RELEASE 24 HOUR Take 2 tablets by mouth at bedtime. DESVENLAFAXINE SUCCINATE 92187589222 Active Artie Uriostegui MD Active TRAZODONE HCL 100 MG ORAL TABLET Take 1 1/2 - 2 tablets by mouth at bedtime as needed for sleep. TRAZODONE HCL 100 MG ORAL TABLET [id number] TRAZODONE HCL Inactive ABILIFY 5 MG ORAL TABLET Take 1 tab By Mouth take at bedtime ABILIFY 5 MG ORAL TABLET [id number] ARIPIPRAZOLE Inactive KLONOPIN 0.5 MG ORAL TABLET Take 1 tablet by mouth twice a day as needed for anxiety. KLONOPIN 0.5 MG ORAL TABLET 879700 CLONAZEPAM Inactive TRAZODONE HCL 100 MG ORAL TABLET Take 1 1/2 - 2 tablets by mouth at bedtime as needed for sleep. TRAZODONE HCL [id number] No Longer Active Artie Uriostegui MD Active ABILIFY 5 MG ORAL TABLET Take 1 tab By Mouth take at bedtime ARIPIPRAZOLE [id number] No Longer Active Artie Uriostegui MD Active KLONOPIN 0.5 MG ORAL TABLET Take 1 tablet by mouth twice a day as needed for anxiety. CLONAZEPAM [id number] No Longer Active Artie Uriostegui MD Active Vital Signs Date Name Value Unit Range Description blood pressure, diastolic 83 mm[Hg] BP nunez blood pressure, systolic 126 mm[Hg] BP sys height E&M 68 [in_us] Bdy height pulse rate E&M 68 /min Heart rate weight E&M 289 [lb_av] Weight Measured blood pressure, diastolic 78 mm[Hg] BP nunez [...] Measured Encounters Date Encounter Provider Code Facility 14:49:23 CDT Est Patient Exp Problem - 04562 Artie Uriostegui MD CPT-64015 [facility] 09:03:24 CDT Est Patient Detailed - 83115 Artie Uriostegui MD CPT-86459 [facility] 14:33:39 CDT Est Patient Exp Problem - 90802 Artie Uriostegui MD CPT-25445 [facility] 15:50:44 PHYSIATRIST Est Patient Exp Problem - 81426 Artie Uriostegui MD CPT-50381 [facility] 11:48:24 PHYSIATRIST Est Patient Exp Problem - 54592 Artie Uriostegui MD CPT-18389 [facility] 09:03:46 CDT Est Patient Detailed - 01967 Artie Uriostegui MD CPT-59550 [facility] 09:08:45 CDT Est Patient Detailed - 06089 Artie Uriostegui MD CPT-31867 [facility] 10:24:55 CDT Est Patient Detailed - 01260 Artie Uriostegui MD CPT-87468 [facility] 11:31:03 CDT Est Patient Detailed - 88339 Artie Uriostegui MD CPT-47547 [facility] 08:24:46 PHYSIATRIST Est Patient Detailed - 29653 Artie Uriostegui MD CPT-29259 [facility] 14:13:15 PHYSIATRIST Est Patient Exp Problem - 87892 Artie Uriostegui MD CPT-47846 [facility] 15:16:19 PHYSIATRIST Est Patient Exp Problem - 27249 Artie Uriostegui MD CPT-00479 [facility] 09:07:07 CDT Est Patient Exp Problem - 33791 Artie Uriostegui MD CPT-01030 [facility] 12:12:02 CDT Est Patient Detailed - 34611 Artie Uriostegui MD CPT-29814 [facility] 09:31:40 CDT Est Patient Detailed - 72579 Artie Uriostegui MD CPT-82468 [facility] 10:45:06 CDT Est Patient Exp Problem - 56734 Anish Garcia MD CPT-09504 [facility] 10:33:08 CDT Est Patient Exp Problem - 72020 Anish Garcia MD CPT-59146 [facility] Procedures Code Procedure Name Date Entry Date Standard Description CPT-20393 Psychotherapy 45 (38-52*) min - 48255 (with patient and/or family member) 16:36:40 CDT CPT-65874 Diagnostic evaluation (no medical) - 01315 09:23:41 CDT CPT-17134 Diagnostic evaluation with medical - 67840 12:02:57 CDT
[2018-11-13 09:45] VITALS: BP 156/90
--- NOTE | 2018-11-13 15:49 | Operative Report ---
DATE OF PROCEDURE: 11/13/2018 SURGEON: Jan Sampson MD CHIEF COMPLAINT: Chronic sinusitis, nasal obstruction. POSTOPERATIVE DIAGNOSIS: Chronic sinusitis, nasal obstruction. OPERATIVE PROCEDURES: Bilateral anterior and posterior ethmoidectomy, bilateral maxillary sinus antrostomy, bilateral resection of tissue and maxillary antrum. ANESTHESIA: Anesthesiology group. INDICATIONS: This 48-year-old female has history of nasal obstruction, postnasal drip, discharge from her nose. She also has headaches. The patient found that her sinus problem triggered her migraines. The patient has been followed by her neurologist. Her condition has been treated with more than 10 weeks of topical nasal steroid, decongestant, antibiotics with no improvement. A CT scan of paranasal sinuses was done before surgery, showed the patient has chronic sinusitis involving her ethmoid sinuses on both sides and maxillary sinus involvement on both sides. It was decided that endoscopic sinus surgery and other necessary procedure will be beneficial for her. The patient was taken to the operating room, put under general anesthesia endotracheally intubated. The nose was injected with 1% Xylocaine with 1:100,000 epinephrine for hemostasis. Epinephrine-soaked pledget was inserted in the nose and subsequently removed. The left paranasal sinuses were approached first. The middle turbinate was medialized. The ethmoid sinuses were partially opened from before, but inflamed tissue was noted in both anterior and posterior ethmoid sinus area. Using the microshaver, the anterior and posterior ethmoid sinus were dissected in a systematic fashion. Care was taken during dissection to ascertain, although it was not entered. Using a 45 degree telescope, the maxillary antrum was examined and inflamed tissue was noted, which looks like a mucocele, it was noted at the floor of the maxillary antrum. This was dissected using 120 degree tip of the microshaver. The right paranasal sinuses were approached. Middle turbinate was medialized. The anterior ethmoid sinuses that were opened before looks like has inflamed tissue blocking the entrance to the anterior ethmoid sinus. Using the microshaver, both anterior and posterior ethmoid sinuses were dissected in a systematic fashion. Care was taken during dissection to ascertain, although was not entered. Using a 45 degree telescope, inflamed tissue was noted in the floor of the maxillary antrum on the right side. This was dissected using 120 degree tip of the microshaver. NasoPore was inserted in the sinus cavities on either side. This was done to prevent synechiae formation and for hemostasis. The patient tolerated the above procedure well with estimated blood loss about 20 mL. She was able to be transferred to recovery room in stable condition. MD JEANNIE Farnsworth/MONALISA /[id number]
== END | disposition home or self-care (01) ==
LOC: OR 05:33
PROVIDERS: ATTEND Otolaryngology Otolaryngology/Facial Plastic Surgery
DX: J32.0 Chronic maxillary sinusitis (principal); J34.89 Other specified disorders of nose and nasal sinuses; F41.9 Anxiety disorder, unspecified; R51 Headache; G47.33 Obstructive sleep apnea (adult) (pediatric); I10 Essential (primary) hypertension; D64.9 Anemia, unspecified; K21.9 Gastro-esophageal reflux disease without esophagitis; Z88.1 Allergy status to other antibiotic agents; Z88.8 Allergy status to other drugs, medicaments and biological substances; Z91.048 Other nonmedicinal substance allergy status; Z01.810 Encounter for preprocedural cardiovascular examination; Z86.73 Personal history of transient ischemic attack (TIA), and cerebral infarction without residual deficits
CPT/HCPCS: 31255; 31267; 88305; J0131; J0171; J1100; J1170; J2001; J2250; J2270; J2550; J2704; J2765; 88304; J3010